=== PATIENT | female | born 1980 | race Two or more races ===

== ENCOUNTER 2020-07-21 13:59 | Outpatient (REF) | payer OTHER, SELFPAY | END 2020-07-21 14:00 | disposition home or self-care (01) | LOC: HO.LNP 13:59 | PROVIDERS: Visit Provider Nurse Practitioner Family | DX: Z20.828 Contact with and (suspected) exposure to other viral communicable diseases (principal) | CPT/HCPCS: 87635 ==

== ENCOUNTER 2020-07-22 15:00 | Outpatient (RCR) | payer OTHER, SELFPAY ==
--- NOTE | 2020-08-25 16:14 | MHC.PT.DC ---
[facility] [place] Office [place] Office [place] Office [address] Giancarlo Leiva [address] [phone] F: [phone] F: [phone] F: [phone] F: [phone] Physical Therapy Discharge Report Diagnosis: Low back pain Date of Surgery: NA Date of Evaluation: 06/17/20 Date of Discharge: 08/25/20 Treatments to Date: 9 Cancellations to Date: 1 No Shows to Date: 0 Discharge Status: Achieved Goals Discharge Summary: 08/25/20- Pt had improved and was independent with all HEPS. Pt had 2 more appointments left and she was going to come to therapy for functional training. However she missed her appointments due to work. Pt has not been able to reschedule her appointments. Pt therefore d/c from therapy. Electronically signed by: Barbara Tang DPT Please sign and return to therapist. Thank you for your referral.
== END 2020-08-25 16:15 | disposition other institution (70) ==
LOC: HO.PT 15:00
PROVIDERS: PCP Internal Medicine; Visit Provider Internal Medicine
DX: M54.9 Dorsalgia, unspecified (principal)
CPT/HCPCS: 97110; 97112; 97530

== ENCOUNTER 2020-08-02 09:34 | Outpatient (REF) | payer OTHER, SELFPAY ==
[2020-08-02 11:44] LABS: Free T4 (Free Thyroxine) 1.27 ng/dL (0.71-1.85); Thyroid Stimulating Hormone 0.36 mIU/mL (0.32-4.0)
== END 2020-08-02 09:35 | disposition home or self-care (01) ==
LOC: HO.LAB 09:34
PROVIDERS: PCP Internal Medicine; Visit Provider Internal Medicine Endocrinology, Diabetes & Metabolism
DX: E03.8 Other specified hypothyroidism (principal)
CPT/HCPCS: 84439; 84443

== ENCOUNTER 2020-08-03 11:56 | Outpatient (REF) | payer OTHER, SELFPAY ==
--- NOTE | 2020-08-03 12:22 | XR_ITS ---
EXAMINATION: XR FACIAL BONES CLINICAL INFORMATION: Localized swelling, mass and lump, head. COMPARISON: Sinus study of 03/27/2020. TECHNIQUE: 4 view facial bones. FINDINGS: No bony abnormality of the facial bones is identified. No acute fracture. No destructive bony lesion. There is some soft tissue swelling seen overlying the frontal bone. No evidence of acute sinusitis. Mastoid air cells well aerated. IMPRESSION: No bony abnormality of the facial bones identified. Soft tissue swelling overlying the frontal bone.
[2020-08-03 13:43] LABS: Basophils Percent Auto 0.5 % (0-2); Eosinophils Absolute Auto 0.2 X10*3/uL (0.0-0.4); Hematocrit 33.4 % (37-47); Hemoglobin 11.3 g/dl (12.0-16.0); Imm Gran Abs Auto 0.01 X10*3/uL (0.00-0.03); Imm Gran Pct Auto 0.2 % (0.0-0.4); Lymphocytes Absolute Auto 1.9 X10*3/uL (1.2-4.9); Lymphocytes Percent Auto 33.6 % (20-40); MANUAL DIFF FLAG NO; Mean Corpuscular HGB Conc 33.8 g/dl (31.0-35.0); Mean Corpuscular Hemoglobin 27.5 pg (27.0-33.0); Mean Corpuscular Volume 81.3 fL (80-98); Mean Platelet Volume 10.7 fL (9.4-12.3); Monocytes Absolute Auto 0.5 X10*3/uL (0.1-1.2); Monocytes Percent Auto 8.3 % (2-11); Neutrophils Absolute Auto 3.1 X10*3/uL (2.0-8.3); Neutrophils Percent Auto 54.4 % (45-73); Platelet Count 269 X10*3/uL (160-400); Red Blood Count 4.11 X10*6/uL (4.20-5.50); Red Cell Distribution Width 14.9 % (11.0-16.0); White Blood Count 5.7 X10*3/uL (4.8-10.8)
[2020-08-03 14:43] LABS: Anion Gap 12 (12-20); Blood Urea Nitrogen 7 mg/dL (9-16); Calcium 8.4 mg/dL (8.4-10.2); Carbon Dioxide 23 mmol/L (22-29); Chloride 107 mmol/L (96-108); Estimated Glomerular Filt Rate > 60; Glucose Fasting 84 mg/dL (60-99); Potassium 4.2 mmol/l (3.3-5.1); Sodium 138 mmol/L (135-145)
[2020-08-03 15:19] LABS: TSH reflex Free T4 0.37 mIU/mL (0.32-4.0)
== END 2020-08-03 11:57 | disposition home or self-care (01) ==
LOC: HO.LABR 11:56
PROVIDERS: Visit Provider Nurse Practitioner Family
DX: R22.0 Localized swelling, mass and lump, head (principal); E03.9 Hypothyroidism, unspecified; E04.2 Nontoxic multinodular goiter
CPT/HCPCS: 36415; 70140; 80048; 84443; 85025

== ENCOUNTER → 2020-08-06 13:10 | Outpatient (BNVA) | payer OTHER, SELFPAY | PROVIDERS: PCP Internal Medicine; Referring Provider Internal Medicine; Visit Provider Internal Medicine Endocrinology, Diabetes & Metabolism | DX: E03.9 Hypothyroidism, unspecified (principal); E06.3 Autoimmune thyroiditis; E04.2 Nontoxic multinodular goiter; Z79.899 Other long term (current) drug therapy; Z87.891 Personal history of nicotine dependence | CPT/HCPCS: 99213 ==

== ENCOUNTER 2020-10-02 10:36 | Outpatient (REF) | payer OTHER, SELFPAY ==
--- NOTE | 2020-10-02 10:41 | MM_ITS ---
EXAMINATION: MM SCREENING DIGITAL BREAST TOMOSYNTHESIS, BILATERAL CLINICAL INFORMATION: Screening. Asymptomatic. The lifetime risk of breast cancer based on the Tyrer-Cuzick Model is 13%. COMPARISON: Mammography: 09/20/2019, 09/14/2018 (baseline). TECHNIQUE: Digital breast tomosynthesis is performed in both the craniocaudal and mediolateral oblique views along with computer-aided detection (CAD). Synthesized 2D images are generated from the tomosynthesis. FINDINGS: There are scattered areas of fibroglandular density (ACR BI-RADS breast composition Category b). The right breast is unremarkable. There is no interval mass or architectural abnormality or developing density. Neither breast shows abnormal calcifications. The bilateral axilla and skin contours are unremarkable. Left CC view has small asymmetric density posterior central aspect, 8 cm from nipple, suspect summation artifact. Patient will be recalled to further characterize. MM/MM tomosynthesis screening BI IMPRESSION: 1. Left: Small asymmetric density CC view posterior central aspect, possibly summation artifact. 2. Right: No mammographic evidence of malignancy. ASSESSMENT: BI-RADS 0: Incomplete - Need Additional Imaging Evaluation RECOMMENDATION: 1. Additional views of the left breast (3-D rolled CC x2, 3-D ML). 2. Targeted ultrasound if warranted after review of the additional views. 3. Radiology department staff will contact the patient for additional imaging. This patient's information was entered into a reminder system with a target due date for their next mammogram.
== END 2020-10-02 10:37 | disposition home or self-care (01) ==
LOC: HO.MAMMO 10:36
PROVIDERS: PCP Internal Medicine; Visit Provider Internal Medicine
DX: Z12.31 Encounter for screening mammogram for malignant neoplasm of breast (principal)
CPT/HCPCS: 77063; 77067

== ENCOUNTER 2020-11-01 13:01 | Outpatient (REF) | payer OTHER, SELFPAY | END 2020-11-01 13:02 | disposition home or self-care (01) | LOC: HO.MDS 13:01 | PROVIDERS: PCP Internal Medicine; Visit Provider Internal Medicine Medical Oncology | DX: D50.9 Iron deficiency anemia, unspecified (principal) ==

== ENCOUNTER 2020-11-18 08:50 | Outpatient (REF) | payer OTHER, SELFPAY ==
--- NOTE | 2020-11-18 08:53 | MM_ITS ---
EXAMINATION: MM DIAGNOSTIC DIGITAL BREAST TOMOSYNTHESIS, LEFT CLINICAL INFORMATION: Density deep in the superior lateral aspect of the left breast seen only on craniocaudal view. COMPARISON: Mammography: 10/02/2020 and studies dating back to 09/14/2018. TECHNIQUE: Digital breast tomosynthesis is performed. 2D images are generated from the tomosynthesis. The following views are obtained: Medial and lateral rolled craniocaudal views and 90-degree mediolateral view. FINDINGS: There are scattered areas of fibroglandular density (ACR BI-RADS breast composition Category b). No definite persistent density is present. Recommend 6-month follow-up left craniocaudal view only. There are some adjacent regions of dense parenchyma present and 6 month follow-up mammography is recommended to ensure stability. Results are provided to the patient at time of visit by the technologist. MM/MM tomosynthesis added views L IMPRESSION: No definite persistent left breast mass. Recommend 6-month left craniocaudal view for follow-up. ASSESSMENT: BI-RADS 3: Probably Benign. RECOMMENDATION: Diagnostic mammography in 6 months. This patient's information was entered into a reminder system with a target due date for their next mammogram.
== END 2020-11-18 08:51 | disposition home or self-care (01) ==
LOC: HO.MAMMO 08:50
PROVIDERS: PCP Internal Medicine; Visit Provider Internal Medicine
DX: N64.89 Other specified disorders of breast (principal)
CPT/HCPCS: 77061; 77065

== ENCOUNTER 2020-12-09 02:49 | Emergency (ER) | payer OTHER, SELFPAY ==
--- NOTE | ~2020-12-09 | XR_ITS ---
EXAMINATION: XR CHEST CLINICAL INFORMATION: Chest pain COMPARISON: 02/06/2016 TECHNIQUE: Frontal view of the chest was obtained. FINDINGS: Cardiac leads overlie the chest. The lungs are well expanded. Bronchial wall thickening noted. There is no focal consolidation, edema, or effusion. No pneumothorax. The cardiomediastinal silhouette is within normal limits. No acute osseous abnormality. XR/XR chest 1V IMPRESSION: No consolidation. Bronchial wall thickening can be seen with a small airways process such as asthma or atypical/viral infection.
--- NOTE | ~2020-12-09 | CT_ITS ---
EXAMINATION: CT ANGIOGRAM OF THE CHEST WITH AND WITHOUT CONTRAST (CT PULMONARY ANGIOGRAM FOR PE) CLINICAL INFORMATION: Reason for Exam Shortness of breath, elevated D-dimer, chest pain COMPARISON: Radiograph 12/09/2020. TECHNIQUE: Prior to contrast administration, noncontrast localization images were obtained. Subsequently, multidetector volumetric imaging was performed from the thoracic inlet to below the diaphragms following the administration of 65 mL Omnipaque 350 intravenous contrast. No contrast reaction reported Sagittal, coronal, and MIP oblique sagittal reformatted images were obtained on the CT workstation, uploaded to PACS, and reviewed. This CT examination was performed using dose optimization techniques as appropriate, variously including the following: *Automated exposure control *Adjustment of mA and/or kV according to patient size (this includes techniques or standardized protocols for targeted exams where dose is matched to indication/reason for exam; i.e. extremities or head) *Use of iterative reconstruction technique Total exam dose-length product 269 mGy-cm FINDINGS: QUALITY OF STUDY/CONTRAST BOLUS: Satisfactory. PULMONARY ARTERIES: No central or segmental pulmonary emboli. THORACIC AORTA: No aneurysm or dissection. LUNG: No focal consolidation, nodules or masses. The central airways are patent. Minimal centrilobular/paraseptal emphysema. PLEURA: No pleural effusion or pneumothorax. MEDIASTINUM: Normal heart size. No pericardial effusion. No hilar or mediastinal lymphadenopathy. No evidence of septal bowing or right heart strain. CHEST WALL/AXILLA: No axillary or internal mammary lymphadenopathy. OSSEOUS STRUCTURES: No acute or suspicious osseous abnormality. UPPER ABDOMEN: Unremarkable. No reflux of contrast into the hepatic veins to suggest elevated right heart pressures. CT/CT angio chest PE protocol IMPRESSION: No pulmonary embolism or other acute pulmonary abnormality. VTE: negative
[2020-12-09 03:07] VITALS: BP 138/88; PULSE 62; PULSE 68; RESP 16; TEMP 36.9; O2SAT 100; O2SAT 98; BMI 28.3
[2020-12-09 03:14] VITALS: BP 113/73; PULSE 60; RESP 14; TEMP 36.9; O2SAT 100
--- NOTE | 2020-12-09 03:23 | ECG_ITS ---
Test Reason : CP Blood Pressure : / mmHG Vent. Rate : 056 BPM Atrial Rate : 056 BPM P-R Int : 144 ms QRS Dur : 090 ms QT Int : 446 ms P-R-T Axes : 019 061 052 degrees QTc Int : 430 ms Sinus bradycardia Otherwise normal ECG When compared with ECG of 03-DEC-2012 08:13, No significant change was found Referred By: Elina Gregg Electronically Signed By:ALISSON RAMOS MD
[2020-12-09 04:06] VITALS: BP 100/54; PULSE 64; RESP 16; TEMP 37; O2SAT 99
[2020-12-09 04:26] LABS: Basophils Percent Auto 0.6 % (0-2); Eosinophils Percent Auto 0.4 % (0-4); Hematocrit 32.7 % (37-47); Hemoglobin 11.1 g/dl (12.0-16.0); Imm Gran Abs Auto 0.01 X10*3/uL (0.00-0.03); Imm Gran Pct Auto 0.2 % (0.0-0.4); Lymphocytes Absolute Auto 0.6 X10*3/uL (1.2-4.9); Lymphocytes Percent Auto 11.7 % (20-40); MANUAL DIFF FLAG SCAN; Mean Corpuscular HGB Conc 33.9 g/dl (31.0-35.0); Mean Corpuscular Hemoglobin 28.1 pg (27.0-33.0); Mean Corpuscular Volume 82.8 fL (80-98); Mean Platelet Volume 10.2 fL (9.4-12.3); Monocytes Absolute Auto 0.3 X10*3/uL (0.1-1.2); Monocytes Percent Auto 5.2 % (2-11); Neutrophils Absolute Auto 3.9 X10*3/uL (2.0-8.3); Neutrophils Percent Auto 81.9 % (45-73); Platelet Count 216 X10*3/uL (160-400); Red Blood Count 3.95 X10*6/uL (4.20-5.50); Red Cell Distribution Width 15.1 % (11.0-16.0); SCAN SMEAR FLAG 1; White Blood Count 4.8 X10*3/uL (4.8-10.8)
[2020-12-09 04:28] LABS: SLIDE REVIEW VERIFIED
[2020-12-09 04:31] LABS: Glucose Urine UA NEG (NEG); Leukocyte Esterase Urine NEG (NEG); Nitrite Urine NEG (NEG); PH 6.5 (5.0-8.0); Urine Blood NEG (NEG); Urine Ketones NEG (NEG); Urine Protein NEG (NEG-TRACE)
[2020-12-09 04:33] LABS: Appearance Urine CLEAR; Color Urine YELLOW
[2020-12-09 04:34] LABS: UPreg QC Valid YES; Urine Pregnancy NEGATIVE (NEGATIVE)
[2020-12-09 04:36] LABS: D Dimer 565 NG/ML
--- NOTE | 2020-12-09 04:45 | ED.CHESTPAIN ---
HPI - Chest Pain General Chief Complaint: Chest Pain Stated Complaint: CHEST PAIN/DIFF BREATHING Time Seen by Provider: 12/09/20 03:07 Source: patient Mode of arrival: EMS History of Present Illness HPI narrative: This is 40-year-old female who states that she developed shortness of breath and sharp stabbing chest pain at the substernal/epigastric area without radiation elsewhere, fevers, chills and states that it lasted approximately 5 minutes and afterwards patient developed nausea and vomited. She states that yesterday after having lunch of chicken with ranch dressing and lettuce she then developed a couple of episodes of diarrhea but was able to eat dinner which was fruit and then subsequently woke up in the middle night with the above pain and shortness of breath. Patient states that she has a positive COVID-19 exposure and was tested this past Sunday and informed that she was negative. Related Data Home Medications Medication Instructions Recorded Confirmed ibuprofen 800 mg tablet 800 mg PO Q8H PRN 07/21/20 08/23/20 metronidazole 0.75 % vaginal gel 1 appful VAGINAL BEDTIME 07/21/20 08/23/20 Lactobacillus acidophilus 10 PO DAILY cap 08/02/20 08/23/20 billion cell capsule dexlansoprazole 60 mg 60 mg PO DAILY 08/02/20 08/23/20 capsule,biphase delayed release sennosides 8.6 mg tablet [id number]? mg PO DAILY 08/06/20 08/23/20 cholecalciferol (vitamin D3) 25 25 mcg PO DAILY 08/23/20 08/23/20 mcg (1,000 unit) capsule cyanocobalamin (vitamin B-12) 1,000 mcg PO DAILY 08/23/20 08/23/20 1,000 mcg capsule Previous Rx's Medication Instructions Recorded levothyroxine 100 mcg tablet 100 mcg PO DAILY 90 Days #90 tab 08/06/20 citalopram 10 mg tablet 10 mg PO DAILY #90 tab 08/23/20 Allergies Allergy/AdvReac Type Severity Reaction Status Date / Time pomegranate Allergy Severe ANAPHYLAXIS Verified 10/26/20 08:55 Penicillins Allergy Mild RASH Verified 10/26/20 08:55 opiates Allergy Unknown panic Verified 10/26/20 08:55 attacks penicillin V Allergy Unknown severe Verified 10/26/20 08:55 yeast infections Opioids - Morphine Analogues AdvReac Severe DYSPHORIA Verified 10/26/20 08:55 [OPIOIDS-MORPHINE & RELATED] AND PANIC ATTACKS Review of Systems Review of Systems: Pertinent positives and negatives as stated in HPI 10 point review of systems is otherwise negative. [facility] Past Medical History Source: nursing notes reviewed Medical History Anemia Anxiety and depression Endometrial thickening on ultrasound GERD (gastroesophageal reflux disease) Shreya's disease Herpes genitalis Hypothyroidism Migraine Non-toxic multinodular goiter Urethral diverticulum Surgical History History of esophagogastroduodenoscopy (EGD) Hx of bilateral salpingectomy Hx of cholecystectomy Hx of hiatal hernia Family History Family History Father No problems noted. Mother Diabetes mellitus HTN (hypertension) Maternal Uncle Pancreatic cancer Maternal Grandfather Diabetes mellitus Social History Social History Alcohol intake: never Smoking Status: Never smoker Use of substances other than those prescribed or required for medical reasons: No Advance Directives: No Physical Exam Vital Signs: Vital Signs: Last Vital Signs Temp 98.5 F 12/09/20 05:18 Pulse 68 12/09/20 05:18 Resp 13 12/09/20 05:18 BP 102/60 12/09/20 05:18 Pulse Ox 100 12/09/20 05:18 Body Mass Index 28.3 VITAL SIGNS: Reviewed. GENERAL: Well developed, well nourished, in no acute distress. HEAD: Normocephalic/atraumatic, EYES: PERRLA, EOMI EARS: Ext canals without abnormality NOSE: Nares patent bilateral OROPHARYNX: no oral lesions noted, posterior pharynx clear NECK: Supple, no adenopathy LUNGS: Normal breath sounds. SpO2<100> CARDIOVASCULAR: Regular rate and rhythm without noted murmurs ABDOMEN: Soft, non-tender, non-distended with bowel sounds. EXTREMITIES: No cyanosis, clubbing or edema, calf pain/swelling. SKIN: Inspection of the skin reveals no rashes NEUROLOGIC: Alert and oriented x 4. Strength and sensation to light touch were grossly intact x 4. Course Course Course Narrative: This is a 40-year-old female with history and clinical presentation suggestive of possible acute on chronic acid reflux, but will rule out cardiopulmonary etiologies to include PE. When review of all investigations there are findings consistent with COVID pattern with transaminemia, chest x-ray consistent with atypical viral pattern and serology showing positive COVID-19. As D-dimer was elevated a CT angio with PE protocol was conducted but negative for evidence of PE. All results and findings were discussed with the patient she was informed she would need to self quarantine and inform her work of her status. Patient has no evidence of hypoxia or tachypnea and was discharged home in stable condition. MDM - Chest Pain Lab Data Result diagrams: 12/09/20 04:15 12/09/20 04:16 Labs: Lab Results 12/09/20 12/09/20 12/09/20 Range/Units 04:15 04:15 04:15 WBC 4.8 (4.8-10.8) X10*3/uL RBC 3.95 L (4.20-5.50) X10*6/uL Hgb 11.1 L (12.0-16.0) g/dl Hct 32.7 L (37-47) % MCV 82.8 (80-98) fL MCH 28.1 (27.0-33.0) pg MCHC 33.9 (31.0-35.0) g/dl RDW 15.1 (11.0-16.0) % Plt Count 216 (160-400) X10*3/uL MPV 10.2 (9.4-12.3) fL Immature Gran % (Auto) 0.2 (0.0-0.4) % Neut % (Auto) 81.9 H (45-73) % Lymph % (Auto) 11.7 L (20-40) % [place] % (Auto) 5.2 (2-11) % Eos % (Auto) 0.4 (0-4) % Baso % (Auto) 0.6 (0-2) % Lymph # (Auto) 0.6 L (1.2-4.9) X10*3/uL [place] # (Auto) 0.3 (0.1-1.2) X10*3/uL Eos # (Auto) 0.0 (0.0-0.4) X10*3/uL Baso # (Auto) 0.0 (0.0-0.2) X10*3/uL Abs Immat Gran (auto) 0.01 (0.00-0.03) X10*3/uL Absolute Neuts (auto) 3.9 (2.0-8.3) X10*3/uL Absolute Nucleated RBC 0.000 (0.0-0.012) X10*3/uL Nucleated RBC % (auto) 0.0 (0.0-0.2) /100WBC Smear Tech's Comments VERIFIED D-Dimer 565 NG/ML Sodium (135-145) mmol/L Potassium (3.3-5.1) mmol/L Chloride (96-108) mmol/L Carbon Dioxide (22-29) mmol/L Anion Gap (12-20) BUN (9-16) mg/dL Creatinine (0.5-1.4) mg/dL Estim Creat Clear Calc Estimated GFR Random Glucose (60-115) mg/dL Calcium (8.4-10.2) mg/dL Total Bilirubin (0.0-1.0) mg/dL AST (5-31) U/L ALT (0-31) U/L Alkaline Phosphatase (39-117) U/L Troponin I High Sens < 3.5 (<3.5-17.0) ng/L Total Protein (6.5-8.0) g/dL Albumin (3.5-5.0) g/dL Lipase (8-78) U/L Urine Color Urine Appearance Urine pH (5.0-8.0) Ur Specific [place] (1.005-1.025) Urine Protein (NEG-TRACE) MG/DL Urine Glucose (UA) (NEG) MG/DL Urine Ketones (NEG) MG/DL Urine Blood (NEG) Urine Nitrite (NEG) Ur Leukocyte Esterase (NEG) Urine Test (NEGATIVE) 12/09/20 12/09/20 12/09/20 Range/Units 04:15 04:15 04:16 WBC (4.8-10.8) X10*3/uL RBC (4.20-5.50) X10*6/uL Hgb (12.0-16.0) g/dl Hct (37-47) % MCV (80-98) fL MCH (27.0-33.0) pg MCHC (31.0-35.0) g/dl RDW (11.0-16.0) % Plt Count (160-400) X10*3/uL MPV (9.4-12.3) fL Immature Gran % (Auto) (0.0-0.4) % Neut % (Auto) (45-73) % Lymph % (Auto) (20-40) % [place] % (Auto) (2-11) % Eos % (Auto) (0-4) % Baso % (Auto) (0-2) % Lymph # (Auto) (1.2-4.9) X10*3/uL [place] # (Auto) (0.1-1.2) X10*3/uL Eos # (Auto) (0.0-0.4) X10*3/uL Baso # (Auto) (0.0-0.2) X10*3/uL Abs Immat Gran (auto) (0.00-0.03) X10*3/uL Absolute Neuts (auto) (2.0-8.3) X10*3/uL Absolute Nucleated RBC (0.0-0.012) X10*3/uL Nucleated RBC % (auto) (0.0-0.2) /100WBC Smear Tech's Comments D-Dimer NG/ML Sodium 141 (135-145) mmol/L Potassium 3.6 (3.3-5.1) mmol/L Chloride 107 (96-108) mmol/L Carbon Dioxide 24 (22-29) mmol/L Anion Gap 14 (12-20) BUN 11 (9-16) mg/dL Creatinine 0.73 (0.5-1.4) mg/dL Estim Creat Clear Calc 99.5 Estimated GFR > 60 Random Glucose 95 (60-115) mg/dL Calcium 8.5 (8.4-10.2) mg/dL Total Bilirubin 0.7 (0.0-1.0) mg/dL AST 214 H (5-31) U/L ALT 88 H (0-31) U/L Alkaline Phosphatase 83 D (39-117) U/L Troponin I High Sens (<3.5-17.0) ng/L Total Protein 6.2 L (6.5-8.0) g/dL Albumin 3.9 (3.5-5.0) g/dL Lipase (8-78) U/L Urine Color YELLOW Urine Appearance CLEAR Urine pH 6.5 (5.0-8.0) Ur Specific [place] 1.020 (1.005-1.025) Urine Protein NEG (NEG-TRACE) MG/DL Urine Glucose (UA) NEG (NEG) MG/DL Urine Ketones NEG (NEG) MG/DL Urine Blood NEG (NEG) Urine Nitrite NEG (NEG) Ur Leukocyte Esterase NEG (NEG) Urine Test NEGATIVE (NEGATIVE) 12/09/20 Range/Units 04:16 WBC (4.8-10.8) X10*3/uL RBC (4.20-5.50) X10*6/uL Hgb (12.0-16.0) g/dl Hct (37-47) % MCV (80-98) fL MCH (27.0-33.0) pg MCHC (31.0-35.0) g/dl RDW (11.0-16.0) % Plt Count (160-400) X10*3/uL MPV (9.4-12.3) fL Immature Gran % (Auto) (0.0-0.4) % Neut % (Auto) (45-73) % Lymph % (Auto) (20-40) % [place] % (Auto) (2-11) % Eos % (Auto) (0-4) % Baso % (Auto) (0-2) % Lymph # (Auto) (1.2-4.9) X10*3/uL [place] # (Auto) (0.1-1.2) X10*3/uL Eos # (Auto) (0.0-0.4) X10*3/uL Baso # (Auto) (0.0-0.2) X10*3/uL Abs Immat Gran (auto) (0.00-0.03) X10*3/uL Absolute Neuts (auto) (2.0-8.3) X10*3/uL Absolute Nucleated RBC (0.0-0.012) X10*3/uL Nucleated RBC % (auto) (0.0-0.2) /100WBC Smear Tech's Comments D-Dimer NG/ML Sodium (135-145) mmol/L Potassium (3.3-5.1) mmol/L Chloride (96-108) mmol/L Carbon Dioxide (22-29) mmol/L Anion Gap (12-20) BUN (9-16) mg/dL Creatinine (0.5-1.4) mg/dL Estim Creat Clear Calc Estimated GFR Random Glucose (60-115) mg/dL Calcium (8.4-10.2) mg/dL Total Bilirubin (0.0-1.0) mg/dL AST (5-31) U/L ALT (0-31) U/L Alkaline Phosphatase (39-117) U/L Troponin I High Sens (<3.5-17.0) ng/L Total Protein (6.5-8.0) g/dL Albumin (3.5-5.0) g/dL Lipase 83 H (8-78) U/L Urine Color Urine Appearance Urine pH (5.0-8.0) Ur Specific [place] (1.005-1.025) Urine Protein (NEG-TRACE) MG/DL Urine Glucose (UA) (NEG) MG/DL Urine Ketones (NEG) MG/DL Urine Blood (NEG) Urine Nitrite (NEG) Ur Leukocyte Esterase (NEG) Urine Test (NEGATIVE) ECG Data ECG #1: Attestation: I personally reviewed and interpreted this ECG as follows: Prior ECG tracings: not available for review Interpretation: Sinus bradycardia, HR-56, no evidence of acute ischemia, [place]/QRS/QTC are within normal limits. Discharge Plan Discharge Clinical Impression: Cough with exposure to COVID-19 virus, Lab test positive for detection of COVID-19 virus Patient Disposition: Home, Self-Care Instructions: COVID-19 (Coronavirus Disease 2019) (ED) Additional Instructions: 1. Resume all home medications as prescribed. 2. Please follow all [facility] guidelines for self quarantine during COVID-19 positivity. 3. You will need to inform your employer that you have been diagnosed with COVID-19. 4. Please follow-up with your primary care provider as well. 5. Please utilize [id number] Tylenol and/or ibuprofen as directed on aside packaging for any body aches, temperatures greater than 100.4. Increase fluid hydration especially with water. Do not hesitate to return to the emergency department should you develop any acute worsening of your symptoms. Prescriptions: No Action cyanocobalamin (vitamin B-12) 1,000 mcg capsule 1,000 mcg PO DAILY RF: 0 cholecalciferol (vitamin D3) 25 mcg (1,000 unit) capsule 25 mcg PO DAILY RF: 0 citalopram 10 mg tablet 10 mg PO DAILY Qty: 90 RF: 1 Dexilant 60 mg capsule,biphase delayed releas 60 mg PO DAILY RF: 0 Probiotic 10 billion cell capsule PO DAILY RF: 0 metronidazole 0.75 % gel 1 appful vaginal BEDTIME RF: 0 ibuprofen 800 mg tablet 800 mg PO Q8H PRN (Reason: pain) RF: 0 sennosides 8.6 mg tablet [id number]? mg PO DAILY RF: 0 levothyroxine 100 mcg tablet 100 mcg PO DAILY 90 Days Qty: 90 RF: 2 Referrals: Physician,Unknown [Primary Care Provider] - 2 days
[2020-12-09 04:53] LABS: Troponin-I High Sensitivity < 3.5 ng/L (<3.5-17.0)
[2020-12-09 04:57] LABS: Alanine Aminotransferase 88 U/L (0-31); Albumin Level 3.9 g/dL (3.5-5.0); Alkaline Phosphatase 83 U/L (39-117); Anion Gap 14 (12-20); Aspartate Amino Transferase 214 U/L (5-31); Bilirubin Total 0.7 mg/dL (0.0-1.0); Blood Urea Nitrogen 11 mg/dL (9-16); Calcium 8.5 mg/dL (8.4-10.2); Carbon Dioxide 24 mmol/L (22-29); Chloride 107 mmol/L (96-108); Creatinine Clr Calc Pharmacy 99.5; Estimated Glomerular Filt Rate > 60; Glucose Random 95 mg/dL (60-115); Potassium 3.6 mmol/L (3.3-5.1); Sodium 141 mmol/L (135-145); Total Protein 6.2 g/dL (6.5-8.0)
[2020-12-09 05:13] LABS: Lipase 83 U/L (8-78)
[2020-12-09 05:18] VITALS: BP 102/60; PULSE 68; RESP 13; TEMP 36.9; O2SAT 100
[2020-12-09] MEDS: iohexoL 350 MG/ML 100 ML INFUS..BTL 65 ML IV (05:36)
[2020-12-09] MEDS: 0.9 % Sodium Chloride 1,000 ML 999 ML IV (05:53)
[2020-12-09] MEDS: Acetaminophen 325 MG TABLET 975 MG PO (05:53)
[2020-12-09 06:01] LABS: Influenza A PCR NEGATIVE (Negative); Influenza B PCR NEGATIVE (Negative); Resp Syncy Virus RNA Qual PCR NEGATIVE (Negative)
[2020-12-09 06:11] LABS: SARS COV2 PCR INHOUSE POSITIVE (Negative)
== END 2020-12-09 06:54 | disposition home or self-care (01) ==
PROVIDERS: Emergency Provider Student in an Organized Health Care Education/Training Program
DX: U07.1 COVID-19 (principal); R07.9 Chest pain, unspecified; F41.9 Anxiety disorder, unspecified; K21.9 Gastro-esophageal reflux disease without esophagitis; Z79.899 Other long term (current) drug therapy
CPT/HCPCS: 0241U; 36415; 71045; 71275; 80053; 81003; 81025; 83690; 84484; 85025; 85379; 93005; 96360; 99284; 99285; Q9967

== ENCOUNTER 2020-12-30 16:01 | Outpatient (REF) | payer OTHER, SELFPAY ==
[2020-12-30 16:22] LABS: MANUAL DIFF FLAG NO
[2020-12-30 16:28] LABS: Basophils Percent Auto 0.4 % (0-2); Eosinophils Absolute Auto 0.2 X10*3/uL (0.0-0.4); Eosinophils Percent Auto 2.2 % (0-4); Hematocrit 31.5 % (37-47); Hemoglobin 10.7 g/dl (12.0-16.0); Imm Gran Abs Auto 0.01 X10*3/uL (0.00-0.03); Imm Gran Pct Auto 0.1 % (0.0-0.4); Immature Retic Fraction 15.1 % (3.0-15.9); Lymphocytes Percent Auto 29.6 % (20-40); Mean Corpuscular Hemoglobin 28.4 pg (27.0-33.0); Mean Corpuscular Volume 83.6 fL (80-98); Mean Platelet Volume 10.1 fL (9.4-12.3); Monocytes Absolute Auto 0.6 X10*3/uL (0.1-1.2); Monocytes Percent Auto 8.6 % (2-11); Neutrophils Absolute Auto 4.1 X10*3/uL (2.0-8.3); Neutrophils Percent Auto 59.1 % (45-73); Platelet Count 307 X10*3/uL (160-400); Red Blood Count 3.77 X10*6/uL (4.20-5.50); Red Cell Distribution Width 15.9 % (11.0-16.0); Retic HGB Equivalent 31.8 pg (30.0-35.0); Reticulocyte Percent 1.7 % (0.5-1.8); Reticulocytes Absolute 0.064 X10*6/uL (0.026-0.095); White Blood Count 6.9 X10*3/uL (4.8-10.8)
[2020-12-30 17:14] LABS: Ferritin 8 ng/mL (10-250); Thyroid Stimulating Hormone 0.26 uIU/mL (0.32-4.0); Vitamin D 25-OH Total 41.9 ng/mL (>30)
[2020-12-30 17:26] LABS: Alanine Aminotransferase 10 U/L (0-31); Alkaline Phosphatase 64 U/L (39-117); Blood Urea Nitrogen 10 mg/dL (9-16); Glucose Random 85 mg/dL (60-115); Iron 28 mcg/dL (30-160); Percent Iron Saturation 7 % (15-50); Total Iron Binding Capacity 425 mcg/dL (228-428); Unsaturated Iron Binding 397 ug/dL
[2020-12-30 17:30] LABS: Anion Gap 12 (12-20); Aspartate Amino Transferase 16 U/L (5-31); Bilirubin Total 0.6 mg/dL (0.0-1.0); Calcium 8.6 mg/dL (8.4-10.2); Carbon Dioxide 23 mmol/L (22-29); Chloride 113 mmol/L (96-108); Cholesterol 157 mg/dL; Estimated Glomerular Filt Rate > 60; HDL Cholesterol 60 mg/dL; LDL Cholesterol Calculated 78 mg/dl; Sodium 144 mmol/L (135-145); Total Protein 6.2 g/dL (6.5-8.0); Triglycerides 96 mg/dL
[2020-12-30 18:27] LABS: Folate 15.6 ng/mL (> or = 4.0); Vitamin B12 741 pg/mL (200-900)
== END 2020-12-30 16:02 | disposition home or self-care (01) ==
LOC: HO.LAB 16:01
PROVIDERS: PCP Internal Medicine; Visit Provider Internal Medicine
DX: E03.9 Hypothyroidism, unspecified (principal); E78.00 Pure hypercholesterolemia, unspecified; D50.9 Iron deficiency anemia, unspecified
CPT/HCPCS: 36415; 80053; 80061; 82306; 82607; 82728; 82746; 83540; 84439; 84443; 85025; 85045

== ENCOUNTER 2021-01-03 15:40 | Outpatient (REF) | payer OTHER, SELFPAY ==
[2021-01-03 15:54] LABS: MANUAL DIFF FLAG NO
[2021-01-03 15:56] LABS: Basophils Percent Auto 0.4 % (0-2); Eosinophils Absolute Auto 0.1 X10*3/uL (0.0-0.4); Eosinophils Percent Auto 1.9 % (0-4); Hematocrit 32.2 % (37-47); Hemoglobin 11.3 g/dl (12.0-16.0); Imm Gran Abs Auto 0.01 X10*3/uL (0.00-0.03); Imm Gran Pct Auto 0.1 % (0.0-0.4); Lymphocytes Percent Auto 29.6 % (20-40); Mean Corpuscular HGB Conc 35.1 g/dl (31.0-35.0); Mean Corpuscular Hemoglobin 29.2 pg (27.0-33.0); Mean Corpuscular Volume 83.2 fL (80-98); Mean Platelet Volume 9.9 fL (9.4-12.3); Monocytes Absolute Auto 0.5 X10*3/uL (0.1-1.2); Monocytes Percent Auto 6.9 % (2-11); Neutrophils Absolute Auto 4.2 X10*3/uL (2.0-8.3); Neutrophils Percent Auto 61.1 % (45-73); Platelet Count 313 X10*3/uL (160-400); Red Blood Count 3.87 X10*6/uL (4.20-5.50); Red Cell Distribution Width 15.6 % (11.0-16.0); White Blood Count 6.9 X10*3/uL (4.8-10.8)
[2021-01-03 16:33] LABS: Ferritin 6 ng/mL (10-250)
== END 2021-01-03 15:41 | disposition home or self-care (01) ==
LOC: HO.MDS 15:40
PROVIDERS: PCP Internal Medicine; Visit Provider Internal Medicine Medical Oncology
DX: D50.9 Iron deficiency anemia, unspecified (principal)
CPT/HCPCS: 36415; 82728; 85025; 96365; J1439

== ENCOUNTER 2021-01-08 07:58 | Outpatient (REF) | payer OTHER, SELFPAY ==
--- NOTE | ~2021-01-08 | XR_ITS ---
EXAMINATION: XR LUMBOSACRAL SPINE CLINICAL INFORMATION: Low back pain COMPARISON: Previous x-ray May 2020 TECHNIQUE: 3 views of the lumbar spine FINDINGS: There is curvature of the lumbar sacral spine to the left. Bone alignment is otherwise normal. No fracture or dislocation is seen. Disc spaces are normal. XR/XR lumbar spine 2-3V IMPRESSION: Curvature of the lower lumbar sacral spine to the left.
== END 2021-01-08 07:59 | disposition home or self-care (01) ==
LOC: HO.XRAY 07:58
PROVIDERS: PCP Internal Medicine; Visit Provider Internal Medicine
DX: M54.5 Low back pain (principal)
CPT/HCPCS: 72100

== ENCOUNTER 2021-01-10 15:51 | Outpatient (REF) | payer OTHER, SELFPAY | END 2021-01-10 15:52 | disposition home or self-care (01) | LOC: HO.MDS 15:51 | PROVIDERS: PCP Internal Medicine; Visit Provider Internal Medicine Medical Oncology | DX: D50.9 Iron deficiency anemia, unspecified (principal) | CPT/HCPCS: 96365; J1439 ==

== ENCOUNTER 2021-03-19 07:28 | Outpatient (REF) | payer OTHER, SELFPAY ==
[2021-03-19 08:25] LABS: MANUAL DIFF FLAG NO
[2021-03-19 08:50] LABS: Iron 96 mcg/dL (30-160); Percent Iron Saturation 37 % (15-50); Total Iron Binding Capacity 260 mcg/dL (228-428); Unsaturated Iron Binding 164 ug/dL
[2021-03-19 08:52] LABS: Basophils Percent Auto 0.6 % (0-2); Eosinophils Absolute Auto 0.2 X10*3/uL (0.0-0.4); Eosinophils Percent Auto 4.1 % (0-4); Hemoglobin 12.7 g/dl (12.0-16.0); Imm Gran Abs Auto 0.01 X10*3/uL (0.00-0.03); Imm Gran Pct Auto 0.2 % (0.0-0.4); Immature Retic Fraction 13.2 % (3.0-15.9); Lymphocytes Absolute Auto 1.6 X10*3/uL (1.2-4.9); Lymphocytes Percent Auto 31.7 % (20-40); Mean Corpuscular HGB Conc 35.3 g/dl (31.0-35.0); Mean Corpuscular Hemoglobin 32.2 pg (27.0-33.0); Mean Corpuscular Volume 91.4 fL (80-98); Mean Platelet Volume 10.5 fL (9.4-12.3); Monocytes Absolute Auto 0.5 X10*3/uL (0.1-1.2); Monocytes Percent Auto 10.4 % (2-11); Neutrophils Absolute Auto 2.7 X10*3/uL (2.0-8.3); Platelet Count 194 X10*3/uL (160-400); Red Blood Count 3.94 X10*6/uL (4.20-5.50); Red Cell Distribution Width 15.9 % (11.0-16.0); Retic HGB Equivalent 36.5 pg (30.0-35.0); Reticulocyte Percent 2.1 % (0.5-1.8); Reticulocytes Absolute 0.082 X10*6/uL (0.026-0.095); White Blood Count 5.1 X10*3/uL (4.8-10.8)
[2021-03-19 09:00] LABS: Ferritin 254 ng/mL (10-250); Free T4 (Free Thyroxine) 0.95 ng/dL (0.71-1.85); Thyroid Stimulating Hormone 1.48 uIU/mL (0.32-4.0)
[2021-03-21 08:22] LABS: Folate 15.6 ng/mL (> or = 4.0); Vitamin B12 680 pg/mL (200-900)
== END 2021-03-19 07:29 | disposition home or self-care (01) ==
LOC: HO.LAB 07:28
PROVIDERS: PCP Internal Medicine; Visit Provider Internal Medicine
DX: E03.9 Hypothyroidism, unspecified (principal)
CPT/HCPCS: 36415; 82607; 82728; 82746; 83540; 84439; 84443; 85025; 85045

== ENCOUNTER → 2021-03-29 15:54 | Outpatient (BNVA) | payer OTHER, SELFPAY | PROVIDERS: PCP Internal Medicine; Referring Provider Internal Medicine; Visit Provider Nurse Practitioner Family | DX: K21.9 Gastro-esophageal reflux disease without esophagitis (principal); K59.00 Constipation, unspecified | CPT/HCPCS: 99212 ==

== ENCOUNTER → 2021-04-19 15:23 | Outpatient (BNVA) | payer OTHER, SELFPAY | PROVIDERS: PCP Internal Medicine; Visit Provider Internal Medicine Endocrinology, Diabetes & Metabolism | DX: E03.9 Hypothyroidism, unspecified (principal); E06.3 Autoimmune thyroiditis | CPT/HCPCS: 99212 ==

== ENCOUNTER 2021-05-20 12:07 | Outpatient (REF) | payer OTHER, SELFPAY ==
--- NOTE | ~2021-05-20 | MM_ITS ---
EXAMINATION: MM DIAGNOSTIC DIGITAL BREAST TOMOSYNTHESIS, LEFT CLINICAL INFORMATION: Short interval follow-up for probable summation artifact on CC view initially noted at screening September 2020. The lifetime risk of breast cancer based on the Tyrer-Cuzick Model is 13%. COMPARISON: Mammography: 11/18/2020, 10/02/2020 (BI-RADS 0), 09/20/2019 TECHNIQUE: Digital breast tomosynthesis is performed in both the craniocaudal and mediolateral oblique views along with computer-aided detection (CAD). Synthesized 2D images are generated from the tomosynthesis. Additional left MLO view is provided. FINDINGS: There are scattered areas of fibroglandular density (ACR BI-RADS breast composition Category b). There is no asymmetric density posterior central left breast on current exam nor on the diagnostic mammography 11/18/2020. There is no interval developing density. The remainder the left breast is unremarkable. Results are provided to the patient at time of visit by the technologist. MM/MM tomosynthesis diagnostic LT IMPRESSION: No asymmetric or developing density posterior central left breast. ASSESSMENT: BI-RADS 2: Benign RECOMMENDATION: Routine annual mammography screening. This patient's information was entered into a reminder system with a target due date for their next mammogram.
== END 2021-05-20 12:08 | disposition home or self-care (01) ==
LOC: HO.MAMMO 12:07
PROVIDERS: PCP Advanced Practice Midwife; Visit Provider Internal Medicine
DX: R92.2 Inconclusive mammogram (principal)
CPT/HCPCS: 77061; 77065

== ENCOUNTER 2021-08-05 10:55 | Outpatient (REF) | payer OTHER, SELFPAY ==
[2021-08-05 11:09] LABS: MANUAL DIFF FLAG NO
[2021-08-05 11:56] LABS: Basophils Absolute Auto 0.1 X10*3/uL (0.0-0.2); Basophils Percent Auto 0.8 % (0-2); Eosinophils Absolute Auto 0.2 X10*3/uL (0.0-0.4); Eosinophils Percent Auto 2.6 % (0-4); Hemoglobin 13.4 g/dl (12.0-16.0); Imm Gran Abs Auto 0.02 X10*3/uL (0.00-0.03); Imm Gran Pct Auto 0.3 % (0.0-0.4); Lymphocytes Absolute Auto 1.7 X10*3/uL (1.2-4.9); Lymphocytes Percent Auto 27.9 % (20-40); Mean Corpuscular HGB Conc 35.3 g/dl (31.0-35.0); Mean Corpuscular Hemoglobin 33.1 pg (27.0-33.0); Mean Corpuscular Volume 93.8 fL (80-98); Mean Platelet Volume 9.9 fL (9.4-12.3); Monocytes Absolute Auto 0.5 X10*3/uL (0.1-1.2); Monocytes Percent Auto 8.1 % (2-11); Neutrophils Absolute Auto 3.7 X10*3/uL (2.0-8.3); Neutrophils Percent Auto 60.3 % (45-73); Platelet Count 265 X10*3/uL (160-400); Red Blood Count 4.05 X10*6/uL (4.20-5.50); Red Cell Distribution Width 12.7 % (11.0-16.0); White Blood Count 6.2 X10*3/uL (4.8-10.8)
[2021-08-05 12:06] LABS: Appearance Urine HAZY; Color Urine YELLOW; Glucose Urine UA NEG (NEG); Leukocyte Esterase Urine NEG (NEG); Nitrite Urine NEG (NEG); Urine Blood 3+ (NEG); Urine Ketones NEG (NEG); Urine Protein NEG (NEG-TRACE)
[2021-08-05 12:25] LABS: Alanine Aminotransferase 16 U/L (0-31); Alkaline Phosphatase 58 U/L (39-117); Anion Gap 9 (12-20); Aspartate Amino Transferase 21 U/L (5-31); Bilirubin Total 0.7 mg/dL (0.0-1.0); Blood Urea Nitrogen 13 mg/dL (9-16); Carbon Dioxide 28 mmol/L (22-29); Chloride 107 mmol/L (96-108); Estimated Glomerular Filt Rate > 60; Glucose Random 72 mg/dL (60-115); Potassium 4.3 mmol/L (3.3-5.1); Sodium 140 mmol/L (135-145); Total Protein 6.1 g/dL (6.5-8.0)
[2021-08-05 12:31] LABS: Amorphous Sediment Urine TRACE /LPF; Bacteria Urine 1+ /LPF; Squamous Epithelial Cell Urine 2+ /LPF; WBC Urine 0 /HPF (0-4)
[2021-08-05 12:37] LABS: Thyroid Stimulating Hormone 5.43 uIU/mL (0.32-4.0)
[2021-08-05 12:40] LABS: Free T4 (Free Thyroxine) 0.94 ng/dL (0.71-1.85)
== END 2021-08-05 10:56 | disposition home or self-care (01) ==
LOC: HO.LAB 10:55
PROVIDERS: Internal Medicine Endocrinology, Diabetes & Metabolism; PCP Internal Medicine; Visit Provider Internal Medicine
DX: R42 Dizziness and giddiness (principal); E03.9 Hypothyroidism, unspecified; E04.2 Nontoxic multinodular goiter
CPT/HCPCS: 36415; 80053; 81001; 84439; 84443; 85025

== ENCOUNTER 2022-03-01 07:33 | Outpatient (REF) | payer OTHER, SELFPAY ==
[2022-03-01 07:44] LABS: MANUAL DIFF FLAG NO
[2022-03-01 07:58] LABS: Basophils Absolute Auto 0.1 X10*3/uL (0.0-0.2); Basophils Percent Auto 0.8 % (0-2); Eosinophils Absolute Auto 0.2 X10*3/uL (0.0-0.4); Eosinophils Percent Auto 3.1 % (0-4); Hematocrit 36.2 % (37.0-47.0); Hemoglobin 12.8 g/dl (12.0-16.0); Imm Gran Abs Auto 0.02 X10*3/uL (0.00-0.03); Imm Gran Pct Auto 0.3 % (0.0-0.4); Immature Retic Fraction 14.9 % (3.0-15.9); Lymphocytes Absolute Auto 1.9 X10*3/uL (1.2-4.9); Lymphocytes Percent Auto 29.8 % (20-40); Mean Corpuscular HGB Conc 35.4 g/dl (31.0-35.0); Mean Corpuscular Hemoglobin 32.4 pg (27.0-33.0); Mean Corpuscular Volume 91.6 fL (80.0-98.0); Monocytes Absolute Auto 0.5 X10*3/uL (0.1-1.2); Monocytes Percent Auto 7.7 % (2-11); Neutrophils Absolute Auto 3.7 x10*3/uL (2.0-8.3); Neutrophils Percent Auto 58.3 % (45-73); Platelet Count 214 X10*3/uL (160-400); Red Blood Count 3.95 X10*6/uL (4.20-5.50); Red Cell Distribution Width 12.6 % (11.0-16.0); Retic HGB Equivalent 37.3 pg (30.0-35.0); Reticulocyte Percent 1.9 % (0.5-1.8); Reticulocytes Absolute 0.075 X10*6/uL (0.026-0.095); White Blood Count 6.4 X10*3/uL (4.8-10.8)
[2022-03-01 08:31] LABS: Alanine Aminotransferase 13 U/L (0-31); Alkaline Phosphatase 45 U/L (39-117); Anion Gap 9 (12-20); Aspartate Amino Transferase 17 U/L (5-31); Bilirubin Total 0.7 mg/dL (0.0-1.0); Blood Urea Nitrogen 9 mg/dL (9-16); Carbon Dioxide 23 mmol/L (22-29); Chloride 112 mmol/L (96-108); Cholesterol 157 mg/dL; Estimated Glomerular Filt Rate > 60; Glucose Random 102 mg/dL (60-115); HDL Cholesterol 58 mg/dL; Iron 64 mcg/dL (30-160); LDL Cholesterol Calculated 91 mg/dl; Percent Iron Saturation 23 % (15-50); Potassium 3.9 mmol/L (3.3-5.1); Sodium 140 mmol/L (135-145); Total Iron Binding Capacity 280 mcg/dL (228-428); Triglycerides 40 mg/dL; Unsaturated Iron Binding 216 ug/dL
[2022-03-01 08:53] LABS: Ferritin 147 ng/mL (10-250); Free T4 (Free Thyroxine) 1.15 ng/dL (0.71-1.85); Vitamin D 25-OH Total 33.4 ng/mL (>30)
[2022-03-01 14:27] LABS: Folate 14.2 ng/mL (> or = 4.0); Vitamin B12 462 pg/mL (200-900)
== END 2022-03-01 07:34 | disposition home or self-care (01) ==
LOC: HO.LAB 07:33
PROVIDERS: PCP Internal Medicine; Visit Provider Internal Medicine
DX: E03.9 Hypothyroidism, unspecified (principal); D50.0 Iron deficiency anemia secondary to blood loss (chronic); E78.00 Pure hypercholesterolemia, unspecified
CPT/HCPCS: 36415; 80053; 80061; 82306; 82607; 82728; 82746; 83540; 84439; 84443; 85025; 85045

== ENCOUNTER 2022-05-22 10:25 | Outpatient (REF) | payer OTHER, SELFPAY ==
--- NOTE | ~2022-05-22 | MM_ITS ---
EXAMINATION: MM SCREENING DIGITAL BREAST TOMOSYNTHESIS, BILATERAL CLINICAL INFORMATION: Screening. Asymptomatic. The lifetime risk of breast cancer based on the Tyrer-Cuzick Model is 8%. COMPARISON: Mammography: 05/20/2021, 11/18/2020, 10/02/2020, 09/20/2019, 09/14/2018 TECHNIQUE: Digital breast tomosynthesis is performed in both the craniocaudal and mediolateral oblique views along with computer-aided detection (CAD). Synthesized 2D images are generated from the tomosynthesis. FINDINGS: There are scattered areas of fibroglandular density (ACR BI-RADS breast composition Category b). There are no significant masses, abnormal calcifications, or other abnormalities. Parenchymal pattern is similar to prior studies. There is no developing density or architectural abnormality. The axilla and skin contours are unremarkable. No significant changes. MM/MM tomosynthesis screening BI IMPRESSION: No mammographic evidence of malignancy. ASSESSMENT: BI-RADS 1: Negative RECOMMENDATION: Routine annual mammography screening. This patient's information was entered into a reminder system with a target due date for their next mammogram.
== END 2022-05-22 10:26 | disposition home or self-care (01) ==
LOC: HO.MAMMO 10:25
PROVIDERS: PCP Internal Medicine; Visit Provider Internal Medicine
DX: Z12.31 Encounter for screening mammogram for malignant neoplasm of breast (principal)
CPT/HCPCS: 77063; 77067

== ENCOUNTER 2022-09-15 09:55 | Outpatient (REF) | payer OTHER, SELFPAY ==
[2022-09-15 10:15] LABS: MANUAL DIFF FLAG NO
[2022-09-15 10:29] LABS: Basophils Absolute Auto 0.1 X10*3/uL (0.0-0.2); Basophils Percent Auto 0.8 % (0-2); Eosinophils Absolute Auto 0.2 X10*3/uL (0.0-0.4); Eosinophils Percent Auto 3.5 % (0-4); Hematocrit 39.3 % (37.0-47.0); Hemoglobin 13.7 g/dl (12.0-16.0); Imm Gran Abs Auto 0.02 X10*3/uL (0.00-0.03); Imm Gran Pct Auto 0.3 % (0.0-0.4); Immature Retic Fraction 12.4 % (3.0-15.9); Lymphocytes Absolute Auto 1.4 X10*3/uL (1.2-4.9); Lymphocytes Percent Auto 22.9 % (20-40); Mean Corpuscular HGB Conc 34.9 g/dl (31.0-35.0); Mean Corpuscular Volume 91.8 fL (80.0-98.0); Mean Platelet Volume 9.9 fL (9.4-12.3); Monocytes Absolute Auto 0.5 X10*3/uL (0.1-1.2); Monocytes Percent Auto 7.3 % (2-11); Neutrophils Percent Auto 65.2 % (45-73); Platelet Count 249 X10*3/uL (160-400); Red Blood Count 4.28 X10*6/uL (4.20-5.50); Red Cell Distribution Width 12.3 % (11.0-16.0); Reticulocyte Percent 2.1 % (0.5-1.8); Reticulocytes Absolute 0.088 X10*6/uL (0.026-0.095); White Blood Count 6.2 X10*3/uL (4.8-10.8)
[2022-09-15 12:24] LABS: Alanine Aminotransferase 7 U/L (0-31); Albumin Level 4.1 g/dL (3.5-5.0); Alkaline Phosphatase 53 U/L (39-117); Anion Gap 12 (12-20); Aspartate Amino Transferase 16 U/L (5-31); Bilirubin Total 0.7 mg/dL (0.0-1.0); Blood Urea Nitrogen 9 mg/dL (9-16); Carbon Dioxide 28 mmol/L (22-29); Chloride 105 mmol/L (96-108); Cholesterol 183 mg/dL; Estimated Glomerular Filt Rate > 60; Ferritin 157 ng/mL (10-250); Free T4 (Free Thyroxine) 0.94 ng/dL (0.71-1.85); Glucose Random 93 mg/dL (60-115); HDL Cholesterol 57 mg/dL; Iron 101 mcg/dL (30-160); LDL Cholesterol Calculated 111 mg/dl; Percent Iron Saturation 36 % (15-50); Potassium 4.2 mmol/L (3.3-5.1); Thyroid Stimulating Hormone 3.44 uIU/mL (0.32-4.0); Total Iron Binding Capacity 280 mcg/dL (228-428); Total Protein 6.3 g/dL (6.5-8.0); Triglycerides 79 mg/dL; Unsaturated Iron Binding 179 ug/dL; Vitamin D 25-OH Total 39.8 ng/mL (>30)
[2022-09-15 12:27] LABS: Folate 9.9 ng/mL (> or = 4.0); Vitamin B12 339 pg/mL (200-900)
[2022-09-15 12:48] LABS: Sodium 141 mmol/L (135-145)
== END 2022-09-15 09:56 | disposition home or self-care (01) ==
LOC: HO.LAB 09:55
PROVIDERS: PCP Internal Medicine; Visit Provider Internal Medicine
DX: E03.9 Hypothyroidism, unspecified (principal); D50.0 Iron deficiency anemia secondary to blood loss (chronic); E78.00 Pure hypercholesterolemia, unspecified; K21.9 Gastro-esophageal reflux disease without esophagitis
CPT/HCPCS: 36415; 80053; 80061; 82306; 82607; 82728; 82746; 83540; 84439; 84443; 85025; 85045

== ENCOUNTER → 2022-11-24 09:20 | Outpatient (BNVA) | payer OTHER, SELFPAY | PROVIDERS: PCP Internal Medicine; Referring Provider Internal Medicine; Visit Provider Nurse Practitioner Family | DX: Z76.0 Encounter for issue of repeat prescription (principal); K21.9 Gastro-esophageal reflux disease without esophagitis; Z90.49 Acquired absence of other specified parts of digestive tract; K59.04 Chronic idiopathic constipation | CPT/HCPCS: 99212 ==

== ENCOUNTER 2022-12-18 10:23 | Outpatient (REF) | payer OTHER, SELFPAY ==
[2022-12-18 12:04] LABS: HIV AB/AG Nonreactive (Nonreactive); HIV Num 1 0.07 S/CO (0.00-0.99)
== END 2022-12-18 10:24 | disposition home or self-care (01) ==
LOC: HO.LAB 10:23
PROVIDERS: PCP Internal Medicine; Visit Provider Internal Medicine
DX: Z11.4 Encounter for screening for human immunodeficiency virus [HIV] (principal); J32.9 Chronic sinusitis, unspecified
CPT/HCPCS: 36415; 87389

== ENCOUNTER 2022-12-29 07:37 | Outpatient (REF) | payer OTHER, SELFPAY ==
--- NOTE | ~2022-12-29 | CT_ITS ---
EXAMINATION: CT SINUS WITHOUT CONTRAST CLINICAL INFORMATION: Chronic sinusitis. COMPARISON: Plain films of the facial bones 08/03/2020. Remote CT scan of the sinuses 04/11/2012. CT scan of the head 05/19/2018. TECHNIQUE: Multidetector helical imaging was performed in the axial plane with generation of coronal and sagittal reformatted images. This CT examination was performed using dose optimization techniques as appropriate, variously including the following: *Automated exposure control *Adjustment of mA and/or kV according to patient size (this includes techniques or standardized protocols for targeted exams where dose is matched to indication/reason for exam; i.e. extremities or head) *Use of iterative reconstruction technique DLP: 104 mGy-cm. FINDINGS: FRONTAL SINUSES AND DRAINAGE PATHWAYS: The frontal sinuses are well developed bilaterally. They are well-aerated with patent frontal sinus drainage pathways. MAXILLARY SINUSES AND DRAINAGE PATHWAYS: The maxillary sinuses are well-developed and appear clear bilaterally. The ostiomeatal complexes are patent bilaterally. ETHMOID SINUSES: The ethmoid sinuses are well-developed bilaterally. There is minimal mucoperiosteal thickening in the anterior ethmoid air cells bilaterally. There are bilateral Ervin cells, more prominent on the right. SPHENOID SINUSES AND DRAINAGE PATHWAYS: The sphenoid sinuses are well-aerated bilaterally. They are clear with patent sphenoethmoidal recesses. NASAL CAVITY AND NASAL SEPTUM: The nasal septum is essentially in the midline. There are no prominent nasal septal spurs. There are no large nasal cavity masses or polyps. ADDITIONAL RELEVANT FINDINGS: The lamina papyracea are intact. The carotid canals are normally covered by bone. The ethmoid roofs are symmetric. No periapical disease is seen. The TMJs and orbits are normal. The visualized mastoid air cells are clear. There are no acute intracranial findings. CT/CT sinus wo IV con IMPRESSION: 1. There is no significant active sinus disease. 2. The ostiomeatal complexes are patent bilaterally. 3. The nasal septum is in the midline and there are no prominent nasal septal spurs.
== END 2022-12-29 07:38 | disposition home or self-care (01) ==
LOC: HO.CT 07:37
PROVIDERS: Visit Provider Internal Medicine
DX: J32.9 Chronic sinusitis, unspecified (principal)
CPT/HCPCS: 70486

== ENCOUNTER 2023-01-14 21:00 | Emergency (ER) | payer OTHER, SELFPAY ==
[2023-01-14 21:38] VITALS: BP 133/81; PULSE 88; RESP 18; TEMP 37.2; O2SAT 100; BMI 28.7
[2023-01-14] MEDS: Ondansetron ODT 4 MG TAB.RAPDIS TRANSLINGU (21:59)
[2023-01-14 22:41] LABS: Basophils Percent Auto 0.3 % (0-2); Eosinophils Absolute Auto 0.1 X10*3/uL (0.0-0.4); Eosinophils Percent Auto 0.6 % (0-4); Hematocrit 39.6 % (37.0-47.0); Hemoglobin 14.1 g/dl (12.0-16.0); Imm Gran Abs Auto 0.02 X10*3/uL (0.00-0.03); Imm Gran Pct Auto 0.2 % (0.0-0.4); Lymphocytes Absolute Auto 0.4 X10*3/uL (1.2-4.9); MANUAL DIFF FLAG SCAN; Mean Corpuscular HGB Conc 35.6 g/dl (31.0-35.0); Mean Corpuscular Volume 89.8 fL (80.0-98.0); Mean Platelet Volume 9.8 fL (9.4-12.3); Monocytes Absolute Auto 0.3 X10*3/uL (0.1-1.2); Monocytes Percent Auto 2.7 % (2-11); Neutrophils Absolute Auto 9.9 x10*3/uL (2.0-8.3); Neutrophils Percent Auto 92.2 % (45-73); Platelet Count 216 X10*3/uL (160-400); Red Blood Count 4.41 X10*6/uL (4.20-5.50); Red Cell Distribution Width 12.8 % (11.0-16.0); SCAN SMEAR FLAG 1; White Blood Count 10.7 X10*3/uL (4.8-10.8)
[2023-01-14 22:53] LABS: Alanine Aminotransferase 17 U/L (0-31); Albumin Level 4.5 g/dL (3.5-5.0); Alkaline Phosphatase 56 U/L (39-117); Anion Gap 13 (12-20); Aspartate Amino Transferase 26 U/L (5-31); Blood Urea Nitrogen 13 mg/dL (9-16); Calcium 8.9 mg/dL (8.4-10.2); Carbon Dioxide 27 mmol/L (22-29); Chloride 104 mmol/L (96-108); Estimated Glomerular Filt Rate > 60; Glucose Random 107 mg/dL (60-115); Lipase 31 U/L (8-78); Potassium 3.8 mmol/L (3.3-5.1); Sodium 140 mmol/L (135-145); Total Protein 6.5 g/dL (6.5-8.0)
[2023-01-14 22:57] LABS: SLIDE REVIEW VERIFIED
[2023-01-14 23:07] LABS: COVID-19 Test Negative (Negative); IDNOW Serial# 6674DD1D
[2023-01-14 23:13] VITALS: BP 98/69; PULSE 80; RESP 18; TEMP 37; O2SAT 98
--- NOTE | 2023-01-14 23:53 | ED_ITS ---
HPI - Nausea/Vomiting/Diarrhea General Chief complaint: Nausea/Vomiting/Diarrhea Stated complaint: vomiting, abd pain Time Seen by Provider: 01/14/23 23:52 Source: patient Mode of arrival: ambulatory Limitations: no limitations History of Present Illness HPI Narrative: Patient otherwise healthy lunch within 2 hours vomited 5-6 times had 4 loose bowels diffuse abdominal cramps feeling much better now after receiving Zofran sublingual in triage. Patient able to take p.o. fluids. No patient complaining of left-sided headache similar to that when she gets migraine but less severe than before no significant abdominal pain Related Data Home Medications Medication Instructions Recorded Confirmed Lactobacillus acidophilus 10 PO DAILY 08/02/20 09/15/22 billion cell capsule cholecalciferol (vitamin D3) 25 25 mcg PO DAILY 08/23/20 09/15/22 mcg (1,000 unit) capsule citalopram 10 mg tablet 5 mg PO DAILY 08/30/21 09/15/22 Previous Rx's Medication Instructions Recorded cetirizine 10 mg tablet (Zyrtec) 10 mg PO DAILY PRN allergy 07/13/22 symptoms #90 tabs levothyroxine 100 mcg tablet 100 mcg PO DAILY 30 days #90 tabs 07/25/22 amitriptyline 10 mg tablet 10 mg PO BEDTIME #90 tabs 11/18/22 dexlansoprazole 60 mg 60 mg PO BEDTIME #90 caps 11/24/22 capsule,biphase delayed release (Dexilant) sennosides 8.6 mg tablet 8.6 - 17.2 mg PO DAILY 30 days 11/24/22 #180 tabs xgvhbocugy-crrizvvhgfrtq-cgqjnoxp 1 cap PO Q6H PRN headache #20 caps 01/15/23 50 mg-300 mg-40 mg capsule (Fioricet) ondansetron 4 mg disintegrating 4 mg PO Q6-8H PRN nausea and 01/15/23 tablet vomiting #7 tabs Allergies Allergy/AdvReac Type Severity Reaction Status Date / Time pomegranate Allergy Severe ANAPHYLAXIS Verified 01/14/23 21:44 Penicillins Allergy Mild RASH Verified 01/14/23 21:44 opiates Allergy Unknown panic Verified 01/14/23 21:44 attacks penicillin V Allergy Unknown severe Verified 01/14/23 21:44 yeast infections Opioids - Morphine Analogues AdvReac Severe DYSPHORIA Verified 01/14/23 21:44 [OPIOIDS-MORPHINE & RELATED] AND PANIC ATTACKS Review of Systems Review of Systems: Yes all other systems are reviewed and are negative [facility] Past Medical History Medical History Anxiety and depression Endometrial thickening on ultrasound GERD (gastroesophageal reflux disease) Shreya's disease Herpes genitalis Hypothyroidism Low back pain Lump on face Maxillary sinusitis Migraine Nasal congestion Nausea Non-toxic multinodular goiter Swelling of left foot Urethral diverticulum Surgical History History of esophagogastroduodenoscopy (EGD) Hx of bilateral salpingectomy Hx of cholecystectomy Hx of hiatal hernia Family History Family History Father No problems noted. Mother Diabetes mellitus HTN (hypertension) Maternal Uncle Pancreatic cancer Alcohol abuse Maternal Grandfather Diabetes mellitus Maternal Aunt Breast cancer Brother Substance abuse Other Mental health disorder Social History Social History Housing: House Alcohol intake: never Patient Tobacco Use Status: Former Tobacco user Years Smoked: quit 2009 e-Cigarette/Vaping Use: Never Used Second Hand Smoke Exposure: No Advance Directives: No Advance Directives Information Provided: No service: No Current occupational status: employed Cognitive needs: No Hearing needs: No Vision needs: No Physical Exam Vital Signs: Vital Signs: Last Vital Signs Temp 98.6 F 01/14/23 23:13 Pulse 80 01/14/23 23:13 Resp 18 01/14/23 23:13 BP 98/69 01/14/23 23:13 Pulse Ox 98 01/14/23 23:13 O2 Del Method Room Air 01/14/23 23:13 BMI result Body Mass Index 28.7 Appearance: Alert. Oriented X3. No acute distress. Eyes: no pallor/icterus ENT: Pharynx normal. Oral Mucosa moist Neck: Normal inspection. Neck supple. CVS: Normal heart rate and rhythm. Pulses normal. Respiratory: No respiratory distress. Equal air entry bilateral, Abdomen: Soft and nontender. Bowel sounds are present, no mass palpable, no CVA tenderness Skin: Skin warm and dry. Normal skin color. Normal skin turgor. Neuro: Oriented X 3. No motor deficit. Medications Administered Discontinued Medications Generic Name Dose Route Start Last Admin Trade Name Vazquez PRN Reason Stop Dose Admin Ondansetron HCl 4 mg 01/14/23 21:45 01/14/23 21:59 Ondansetron Odt 4 Mg Tab.Kaylah SAUCEDO 01/14/23 21:46 4 mg ONCE ONE Administration Medical Decision Making Medical Decision Making [facility] Narrative: Patient likely with gastroenteritis likely viral labs are stable discharge patient home on Zofran taking p.o. fluids Lab Data [facility] Lab Attestation statement: I reviewed the patient's lab results. 01/14/23 22:31 01/14/23 22:31 Labs: Lab Results 01/14/23 01/14/23 01/14/23 Range/Units 22:31 22:31 22:31 WBC 10.7 (4.8-10.8) X10*3/uL RBC 4.41 (4.20-5.50) X10*6/uL Hgb 14.1 (12.0-16.0) g/dl Hct 39.6 (37.0-47.0) % MCV 89.8 (80.0-98.0) fL MCH 32.0 (27.0-33.0) pg MCHC 35.6 H (31.0-35.0) g/dl RDW 12.8 (11.0-16.0) % Plt Count 216 (160-400) X10*3/uL MPV 9.8 (9.4-12.3) fL Immature Gran % (Auto) 0.2 (0.0-0.4) % Neut % (Auto) 92.2 H (45-73) % Lymph % (Auto) 4.0 L (20-40) % [place] % (Auto) 2.7 (2-11) % Eos % (Auto) 0.6 (0-4) % Baso % (Auto) 0.3 (0-2) % Lymph # (Auto) 0.4 L (1.2-4.9) X10*3/uL [place] # (Auto) 0.3 (0.1-1.2) X10*3/uL Eos # (Auto) 0.1 (0.0-0.4) X10*3/uL Baso # (Auto) 0.0 (0.0-0.2) X10*3/uL Abs Immat Gran (auto) 0.02 (0.00-0.03) X10*3/uL Absolute Neuts (auto) 9.9 H (2.0-8.3) x10*3/uL Absolute Nucleated RBC 0.000 (0.0-0.012) X10*3/uL Nucleated RBC % (auto) 0.0 (0.0-0.2) /100WBC Smear Tech's Comments VERIFIED Sodium 140 (135-145) mmol/L Potassium 3.8 (3.3-5.1) mmol/L Chloride 104 (96-108) mmol/L Carbon Dioxide 27 (22-29) mmol/L Anion Gap 13 (12-20) BUN 13 (9-16) mg/dL Creatinine 0.77 (0.5-1.4) mg/dL Estim Creat Clear Calc 93.0 Estimated GFR > 60 Random Glucose 107 (60-115) mg/dL Calcium 8.9 (8.4-10.2) mg/dL Total Bilirubin 1.0 (0.0-1.0) mg/dL AST 26 (5-31) U/L ALT 17 (0-31) U/L Alkaline Phosphatase 56 (39-117) U/L Total Protein 6.5 (6.5-8.0) g/dL Albumin 4.5 (3.5-5.0) g/dL Lipase 31 (8-78) U/L COVID-19 (NELLY) Negative (Negative) COVID-19 Clin Com See Note Discharge Plan Discharge Clinical Impression: Gastroenteritis Patient Disposition: Home, Self-Care Instructions: Gastroenteritis (ED) Additional Instructions: Drink plenty of fluids Nausea medication as prescribed Follow with PCP if not better Medicine for migraine as prescribed Prescriptions: New ondansetron 4 mg tablet,disintegrating 4 mg PO Q6-8H PRN (Reason: nausea and vomiting) Qty: 7 0RF qszuyplzrt-ufvuwhxmuvtrs-wved [Fioricet] 50-300-40 mg capsule 1 cap PO Q6H PRN (Reason: headache) Qty: 20 0RF No Action levothyroxine 100 mcg tablet 100 mcg PO DAILY 30 Days Qty: 90 1RF amitriptyline 10 mg tablet 10 mg PO BEDTIME Qty: 90 2RF cholecalciferol (vitamin D3) 25 mcg (1,000 unit) capsule 25 mcg PO DAILY Probiotic 10 billion cell capsule PO DAILY citalopram 10 mg tablet 5 mg PO DAILY cetirizine [Zyrtec] 10 mg tablet 10 mg PO DAILY PRN (Reason: allergy symptoms) Qty: 90 2RF dexlansoprazole [Dexilant] 60 mg capsule,biphase delayed releas 60 mg PO BEDTIME Qty: 90 3RF sennosides 8.6 mg tablet 8.6 - 17.2 mg PO DAILY 30 Days Qty: 180 3RF
[2023-01-15] MEDS: Butalb/Acetamin/Caff 50/325/40 TABLET 1 TAB PO (00:08)
--- NOTE | 2023-01-15 00:12 | PC.NURSE ---
Pt aox3 in no apparent distress. Discharge instructions reviewed with pt. Pt verbalizes understanding.
== END 2023-01-15 00:12 | disposition home or self-care (01) ==
PROVIDERS: Emergency Provider Internal Medicine; PCP Internal Medicine
DX: K52.9 Noninfective gastroenteritis and colitis, unspecified (principal); R11.2 Nausea with vomiting, unspecified; Z20.822 Contact with and (suspected) exposure to COVID-19; Z20.828 Contact with and (suspected) exposure to other viral communicable diseases; Z79.899 Other long term (current) drug therapy
CPT/HCPCS: 36415; 80053; 83690; 85025; 87635; 99283

== ENCOUNTER 2023-01-31 08:44 | Emergency (ER) | payer OTHER, SELFPAY ==
[2023-01-31 09:08] VITALS: BP 107/71; PULSE 71; RESP 16; TEMP 36.6; O2SAT 97; BMI 28.3
--- NOTE | 2023-01-31 09:09 | ED_ITS ---
HPI - Ear Problem General Chief complaint: General Medical Stated complaint: L ear pain Time Seen by Provider: 01/31/23 08:57 Source: patient Mode of arrival: ambulatory Limitations: no limitations History of Present Illness HPI Narrative: 42-year-old female with history of seasonal allergies, migraines, GERD, sinusitis, anxiety who presents to the ER for evaluation of earache on the left side for the last 3 days. She states she has an ache inside of the ear that has been worsening. The pain extends to her head and down into her drop. It is worse when she lays on that side. She denies any decreased hearing or drainage from the ear. She has chronic allergies and is on Zyrtec. She has chronic nasal congestion and sinus pressure. No fevers or chills. MD Complaint: ear pain Location: left ear Duration: constant Severity: moderate Exacerbating factors: position of head and palpation Discharge from ear: no Treatment prior to arrival: none Related Data Home Medications Medication Instructions Recorded Confirmed Lactobacillus acidophilus 10 PO DAILY 08/02/20 09/15/22 billion cell capsule cholecalciferol (vitamin D3) 25 25 mcg PO DAILY 08/23/20 09/15/22 mcg (1,000 unit) capsule citalopram 10 mg tablet 5 mg PO DAILY 08/30/21 09/15/22 Previous Rx's Medication Instructions Recorded cetirizine 10 mg tablet (Zyrtec) 10 mg PO DAILY PRN allergy 07/13/22 symptoms #90 tabs amitriptyline 10 mg tablet 10 mg PO BEDTIME #90 tabs 11/18/22 dexlansoprazole 60 mg 60 mg PO BEDTIME #90 caps 11/24/22 capsule,biphase delayed release (Dexilant) sennosides 8.6 mg tablet 8.6 - 17.2 mg PO DAILY 30 days 11/24/22 #180 tabs zoatptoveh-hykaikficvotz-lopqzroa 1 cap PO Q6H PRN headache #20 caps 01/15/23 50 mg-300 mg-40 mg capsule (Fioricet) ondansetron 4 mg disintegrating 4 mg PO Q6-8H PRN nausea and 01/15/23 tablet vomiting #7 tabs levothyroxine 100 mcg tablet 100 mcg PO DAILY 30 days #90 tabs 01/29/23 amoxicillin 875 mg-potassium 1 tab PO BID #14 tabs 01/31/23 clavulanate 125 mg tablet ibuprofen 600 mg tablet 600 mg PO Q8H PRN fever or pain 01/31/23 #20 tabs Allergies Allergy/AdvReac Type Severity Reaction Status Date / Time pomegranate Allergy Severe ANAPHYLAXIS Verified 01/14/23 21:44 Penicillins Allergy Mild RASH Verified 01/14/23 21:44 opiates Allergy Unknown panic Verified 01/14/23 21:44 attacks penicillin V Allergy Unknown severe Verified 01/14/23 21:44 yeast infections Opioids - Morphine Analogues AdvReac Severe DYSPHORIA Verified 01/14/23 21:44 [OPIOIDS-MORPHINE & RELATED] AND PANIC ATTACKS Review of Systems Review of Systems: Yes all other systems are reviewed and are negative [facility] Past Medical History Medical History Anxiety and depression Endometrial thickening on ultrasound GERD (gastroesophageal reflux disease) Shreya's disease Herpes genitalis Hypothyroidism Low back pain Lump on face Maxillary sinusitis Migraine Nasal congestion Nausea Non-toxic multinodular goiter Swelling of left foot Urethral diverticulum Surgical History History of esophagogastroduodenoscopy (EGD) Hx of bilateral salpingectomy Hx of cholecystectomy Hx of hiatal hernia Family History Family History Father No problems noted. Mother Diabetes mellitus HTN (hypertension) Maternal Uncle Pancreatic cancer Alcohol abuse Maternal Grandfather Diabetes mellitus Maternal Aunt Breast cancer Brother Substance abuse Other Mental health disorder Social History Social History Housing: House Alcohol intake: never Patient Tobacco Use Status: Former Tobacco user Years Smoked: quit 2009 e-Cigarette/Vaping Use: Never Used Second Hand Smoke Exposure: No Advance Directives: No Advance Directives Information Provided: No service: No Current occupational status: employed Cognitive needs: No Hearing needs: No Vision needs: No Physical Exam Vital Signs: Vital Signs: Last Vital Signs Temp 97.9 F 01/31/23 09:08 Pulse 71 01/31/23 09:08 Resp 16 01/31/23 09:08 BP 107/71 01/31/23 09:08 Pulse Ox 97 01/31/23 09:08 BMI result Body Mass Index 28.3 Appearance: Alert. Oriented X3. No acute distress. HEENT: normal external inspection. normal right TM inspection. left TM with erythema and bulging, tender to palpation. no mastoid tenderness. CVS: Normal heart rate and rhythm. Pulses normal. Respiratory: No respiratory distress. Lungs CTAB Skin: Skin warm and dry. Normal skin color. Normal skin turgor. No rashes. Extremities: normal inspection x4 Neuro: Oriented X 3. No motor deficit. No sensory deficit. Medical Decision Making Medical Decision Making MDM Narrative: 42-year-old female presents to the ER for evaluation of left ear pain for the last 3 days. Her examination is consistent with acute otitis media with a b ulging erythematous tympanic membrane. She does have seasonal allergies x-ray be contributing. Will start her on antibiotics. She states her penicillin ?allergy? is due to high a occurrence of yeast infections once on penicillins. She states she has been taking probiotics and is okay with getting Augmentin for her ear infection. She is stable for discharge home. She will follow-up with her PCP as needed. Differential Diagnosis Differential Diagnoses: The differential diagnosis associated with the presentation includes otitis media, otitis externa, allergic rhinitis, mastoiditis, parotidits External Record Review External record reviewed: Outpatient record and Prior outpatient labs Prescription Management I considered prescription management with: Pain Medication and Antibiotic Chronic Conditions Patient?s care impacted by: Other (Seasonal allergies) Critical Care Time Critical Care Time Critical Care Time: No Discharge Plan Discharge Clinical Impression: Acute otitis media Patient Disposition: Home, Self-Care Instructions: Ear Infection (ED) Additional Instructions: Take the prescribed antibiotic as directed. Complete the entire course and do not miss any doses. Continue your allergy medication. Take ibuprofen as directed. Also recommend taking Tylenol 975 mg every 6 hours as needed for pain. Follow-up with your doctor as needed. If you develop new or worsening symptoms call 911 or come back to the ER for further evaluation. Prescriptions: New amoxicillin-pot clavulanate 875-125 mg tablet 1 tab PO BID Qty: 14 0RF ibuprofen 600 mg tablet 600 mg PO Q8H PRN (Reason: fever or pain) Qty: 20 0RF No Action amitriptyline 10 mg tablet 10 mg PO BEDTIME Qty: 90 2RF levothyroxine 100 mcg tablet 100 mcg PO DAILY 30 Days Qty: 90 1RF ondansetron 4 mg tablet,disintegrating 4 mg PO Q6-8H PRN (Reason: nausea and vomiting) Qty: 7 0RF ijfavsefut-rkctbndtboepw-tksk [Fioricet] 50-300-40 mg capsule 1 cap PO Q6H PRN (Reason: headache) Qty: 20 0RF cholecalciferol (vitamin D3) 25 mcg (1,000 unit) capsule 25 mcg PO DAILY Probiotic 10 billion cell capsule PO DAILY citalopram 10 mg tablet 5 mg PO DAILY cetirizine [Zyrtec] 10 mg tablet 10 mg PO DAILY PRN (Reason: allergy symptoms) Qty: 90 2RF dexlansoprazole [Dexilant] 60 mg capsule,biphase delayed releas 60 mg PO BEDTIME Qty: 90 3RF sennosides 8.6 mg tablet 8.6 - 17.2 mg PO DAILY 30 Days Qty: 180 3RF
== END 2023-01-31 09:14 | disposition home or self-care (01) ==
PROVIDERS: Emergency Provider Emergency Medicine Emergency Medical Services; PCP Internal Medicine
DX: H66.92 Otitis media, unspecified, left ear (principal); H92.02 Otalgia, left ear
CPT/HCPCS: 99282; 99283

== ENCOUNTER 2023-04-28 08:31 | Emergency (ER) | payer OTHER, SELFPAY ==
--- NOTE | ~2023-04-28 | XR_ITS ---
EXAMINATION: XR CHEST CLINICAL INFORMATION: Upper respiratory symptoms. COMPARISON: 12/09/2020 chest radiograph. TECHNIQUE: Frontal view of the chest was obtained. FINDINGS: No significant abnormality is noted involving the heart, lungs, mediastinum, bony thorax or soft tissues. XR/XR chest 1V IMPRESSION: No acute cardiopulmonary process.
[2023-04-28 08:39] VITALS: BP 108/76; PULSE 93; RESP 18; TEMP 36.6; O2SAT 98; BMI 28.6
[2023-04-28 09:10] LABS: COVID-19 Test Negative (Negative); IDNOW Serial# 08D9AD1C; IDNOW Serial# BCCEAD1C; Strep A Nucleic Acid Negative (Negative)
--- NOTE | 2023-04-28 10:21 | ED.URI ---
HPI - URI/Sore Throat General Chief Complaint: Upper Respiratory Symptoms Stated Complaint: sore throat, stuffy nose, hip pain Time Seen by Provider: 04/28/23 09:04 Source: patient Mode of arrival: ambulatory Limitations: no limitations History of Present Illness HPI Narrative: patient is a 42-year-old female presents to the emergency department for evaluation of upper respiratory symptoms; sore throat, cough, rhinorrhea, left ear pain with onset of symptoms x3 days. Denies any drainage from the ear, or decreased hearing. Denies difficulty swallowing. Denies chest pain or shortness of breath. In addition she is reporting pain to the right lower back radiating into her hip that is consistent with prior sciatica. In the past she has responded well to ibuprofen for this pain, but she did not have any at home therefore she has not taken any. She denies any genitourinary symptoms, fevers, chills, saddle anesthesia, incontinence/ bladder or bowel dysfunction. Related Data Home Medications Medication Instructions Recorded Confirmed Lactobacillus acidophilus 10 PO DAILY 08/02/20 02/13/23 billion cell capsule cholecalciferol (vitamin D3) 25 25 mcg PO DAILY 08/23/20 02/13/23 mcg (1,000 unit) capsule Previous Rx's Medication Instructions Recorded dexlansoprazole 60 mg 60 mg PO BEDTIME #90 caps 11/24/22 capsule,biphase delayed release (Dexilant) levothyroxine 100 mcg tablet 100 mcg PO DAILY 30 days #90 tabs 01/29/23 ibuprofen 600 mg tablet 600 mg PO Q8H PRN fever or pain 01/31/23 #20 tabs cetirizine 10 mg tablet (Zyrtec) 10 mg PO DAILY PRN allergy 02/13/23 symptoms #90 tabs propranolol 10 mg tablet 10 mg PO BID #180 tabs 03/20/23 sennosides 8.6 mg tablet 8.6 - 17.2 mg PO DAILY 30 days 04/24/23 #180 tabs amoxicillin 875 mg-potassium 1 tab PO Q12H #14 tabs 04/28/23 clavulanate 125 mg tablet ibuprofen 600 mg tablet 600 mg PO Q8H PRN pain #30 tabs 04/28/23 Allergies Allergy/AdvReac Type Severity Reaction Status Date / Time pomegranate Allergy Severe ANAPHYLAXIS Verified 04/28/23 08:36 opiates Allergy Intermediate panic Verified 04/28/23 08:36 attacks penicillin V Allergy Intermediate severe Verified 04/28/23 08:36 yeast infections Penicillins Allergy Mild RASH Verified 04/28/23 08:36 Opioids - Morphine Analogues AdvReac Severe DYSPHORIA Verified 04/28/23 08:36 [OPIOIDS-MORPHINE & RELATED] AND PANIC ATTACKS Review of Systems Review of Systems: Constitutional: No fever. no chills. No weakness. no fatigue. ENT/ Mouth: No Ear Pain, positive Nasal Congestion, positive sore throat, No Rhinorrhea, No Swallowing Difficulty Skin: No rash or itching. Cardiovascular: No chest pain. No palpitations. Respiratory: No shortness of breath. Positive cough. No sputum production. Gastrointestinal: No nausea. No vomiting. No diarrhea. No abdominal pain. Genitourinary: No burning micturition. No urinary frequency. Neurologic: No headache. No dizziness. No syncope. No numbness or tingling in the extremities. Musculoskeletal: No muscle pain. positive back pain. No joint pain or stiffness. Yes all other systems are reviewed and are negative [facility] Past Medical History Attestation statement: The following information was validated with the patient. Source: old records reviewed Medical History Anxiety and depression Endometrial thickening on ultrasound GERD (gastroesophageal reflux disease) Shreya's disease Herpes genitalis Hypothyroidism Low back pain Lump on face Maxillary sinusitis Migraine Nasal congestion Nausea Non-toxic multinodular goiter Swelling of left foot Urethral diverticulum Surgical History History of esophagogastroduodenoscopy (EGD) Hx of bilateral salpingectomy Hx of cholecystectomy Hx of hiatal hernia Family History Family History Father No problems noted. Mother Diabetes mellitus HTN (hypertension) Maternal Uncle Pancreatic cancer Alcohol abuse Maternal Grandfather Diabetes mellitus Maternal Aunt Breast cancer Brother Substance abuse Other Mental health disorder Social History Social History Housing: House Alcohol intake: never Patient Tobacco Use Status: Former Tobacco user Tobacco use type: Cigarette Years Smoked: quit 2009 e-Cigarette/Vaping Use: Never Used Second Hand Smoke Exposure: No Advance Directives: No Advance Directives Information Provided: Yes service: No Current occupational status: employed Cognitive needs: No Hearing needs: No Vision needs: No Physical Exam Vital Signs: Vital Signs: Last Vital Signs Temp 97.9 F 04/28/23 08:39 Pulse 93 04/28/23 08:39 Resp 18 04/28/23 08:39 BP 108/76 04/28/23 08:39 Pulse Ox 98 04/28/23 08:39 O2 Del Method Room Air 04/28/23 08:39 BMI result Body Mass Index 28.6 Appearance: Alert.?Oriented to person, place and time. No acute distress.?Normal affect. Eyes: Pupils equal, round and reactive to light.? ENT: TM normal On the right. TM on the left erythematous and bulging. Posterior oropharynx mildly erythematous, uvula midline, no trismus, no drooling. No tonsillar hypertrophy..?? Neck: Normal inspection.? Neck supple.??No cervical adenopathy CVS: Heart sounds normal. Normal heart rate and rhythm.? Pulses normal.?? Respiratory: No respiratory distress.? Lung sounds clear to auscultation bilaterally?? Abdomen: Soft and non-tender. Normoactive bowel sounds. Skin: Skin warm and dry.? Normal skin color.? ? Extremities: No lower extremity edema.? back: right paraspinal tenderness upon palpation. No midline spinal tenderness, step-offs, deformities. No erythema, warmth, rash or lesions. Full AROM to the bilateral lower extremities. Neuro: Moves all extremities spontaneously. Sensation intact bilaterally. No motor deficits. Ambulates with normal steady gait. Course Course Course Narrative: Patient is a ___ with past medical history of _, presenting for evaluation of upper respiratory symptoms. COVID-19 testing _. Influenza testing _. At this time history and physical exam not consistent with ACS/PE/pneumonia. Well-appearing, nontoxic, afebrile, no tachycardia or tachypnea/hypoxia. Speaking clear full sentences, ambulatory with steady gait. Discussed conservative treatment including rest, hydration, Tylenol/ibuprofen as needed for fever and body aches, saline nasal spray, humidifier, [id number]-jobewur cold medication. Advised to follow-up with primary care provider as needed, discussed reasons to return back to the emergency department. All questions were answered. Patient discharged home in stable condition. Provided with a return to work/school note. Offered Tamiflu Offered monoclonal antibody Medical Decision Making Medical Decision Making [facility] Narrative: Patient is a 42-year-old female, presenting for evaluation of upper respiratory symptoms in addition to back pain.? COVID-19 testing negative.? strep testing negative.? At this time history and physical exam not consistent with ACS/PE/pneumonia.? not consistent with peritonsillar retropharyngeal abscess. Examination concerning for left acute otitis media, for which she will be given a prescription for antibiotic. Overall she is Well-appearing, nontoxic, afebrile, no tachycardia or tachypnea/hypoxia.? Speaking clear full sentences, ambulatory with steady gait.? Discussed conservative treatment including rest, hydration, Tylenol/ibuprofen as needed for fever and body aches, saline nasal spray, humidifier, [id number] cold medication.? her back pain appears most consistent with lumbar radiculopathy, no CVA tenderness lower suspicion for pyelonephritis /urinary tract infection without any genitourinary symptoms. Examination not consistent with cauda equina syndrome. Considered CT/ MRI imaging of the lumbar spine for further evaluation, however deferred at this time based on physical exam. Advised to follow-up with primary care provider as needed, discussed reasons to return back to the emergency department.? All questions were answered.? Patient discharged home in stable condition.? Provided with a return to work/school note. Differential Diagnosis Differential Diagnoses: The differential diagnosis associated with the presentation includes ( as noted above) Lab Data [facility] Lab Attestation statement: I reviewed the patient's lab results. ( as noted above) Labs: Lab Results 04/28/23 04/28/23 Range/Units 08:41 08:41 COVID-19 (NELLY) Negative (Negative) COVID-19 Clin Com See Note S. pyogenes GrpA LIANET Negative (Negative) External Record Review External record reviewed: Outpatient record Tests considered The following testing was considered but not selected: considered CT/MRI imaging of the lumbar spine as noted above Prescription Management I considered prescription management with: Antibiotic Discharge Plan Discharge Clinical Impression: Acute otitis media, Acute lumbar radiculopathy Patient Disposition: Home, Self-Care Instructions: Ear Infection (ED), Lumbar Radiculopathy (ED), Lower Back Exercises (ED) Additional Instructions: you have been given a prescription for antibiotic to treat your ear infection. Please do not insert anything into the ear such as Q-tips as this may increase the risk of rupturing your ear drum. Avoid submerging your head under water or swimming until your symptoms have resolved. In addition regarding her back pain, You can take ibuprofen 200 mg, 3 tablets (600mg) every 6-8 hours as needed for pain, in addition to Tylenol 500 mg, 2 tablets (1,000mg) every 4-6 hours as needed for pain, but not to exceed 3 doses daily (3,000mg).? follow-up with your primary care provider as needed. Prescriptions: New amoxicillin-pot clavulanate 875-125 mg tablet 1 tab PO Q12H Qty: 14 0RF ibuprofen 600 mg tablet 600 mg PO Q8H PRN (Reason: pain) Qty: 30 0RF No Action levothyroxine 100 mcg tablet 100 mcg PO DAILY 30 Days Qty: 90 1RF propranolol 10 mg tablet 10 mg PO BID Qty: 180 1RF sennosides 8.6 mg tablet 8.6 - 17.2 mg PO DAILY 30 Days Qty: 180 3RF ibuprofen 600 mg tablet 600 mg PO Q8H PRN (Reason: fever or pain) Qty: 20 0RF cholecalciferol (vitamin D3) 25 mcg (1,000 unit) capsule 25 mcg PO DAILY Probiotic 10 billion cell capsule PO DAILY cetirizine [Zyrtec] 10 mg tablet 10 mg PO DAILY PRN (Reason: allergy symptoms) Qty: 90 2RF dexlansoprazole [Dexilant] 60 mg capsule,biphase delayed releas 60 mg PO BEDTIME Qty: 90 3RF Referrals: Po,Susan Fernandez MD [Primary Care Provider] - Stand Alone Forms: Work/School Release
== END 2023-04-28 10:42 | disposition home or self-care (01) ==
PROVIDERS: Emergency Provider Student in an Organized Health Care Education/Training Program; PCP Internal Medicine
DX: H66.92 Otitis media, unspecified, left ear (principal); M54.16 Radiculopathy, lumbar region; J02.9 Acute pharyngitis, unspecified; Z20.822 Contact with and (suspected) exposure to COVID-19; Z87.891 Personal history of nicotine dependence; Z79.899 Other long term (current) drug therapy
CPT/HCPCS: 71045; 87635; 87651; 99283

== ENCOUNTER 2023-06-13 13:48 | Outpatient (REF) | payer OTHER, SELFPAY ==
[2023-06-15 23:09] LABS: TS Negative Control Passed; TS Panel A 0; TS Panel B 0; TS Positive Control Passed; TSpotTB Negative (Negative)
== END 2023-06-13 13:49 | disposition home or self-care (01) ==
LOC: HO.LAB 13:48
PROVIDERS: PCP Internal Medicine; Visit Provider Internal Medicine
DX: Z00.00 Encounter for general adult medical examination without abnormal findings (principal); Z11.1 Encounter for screening for respiratory tuberculosis
CPT/HCPCS: 36415; 86481

== ENCOUNTER 2023-06-20 10:10 | Outpatient (REF) | payer OTHER, SELFPAY | END 2023-06-20 10:11 | disposition home or self-care (01) | LOC: HO.MAMMO 10:10 | PROVIDERS: PCP Internal Medicine; Visit Provider Internal Medicine | DX: Z12.31 Encounter for screening mammogram for malignant neoplasm of breast (principal) | CPT/HCPCS: 77063; 77067 ==

== ENCOUNTER → 2023-06-20 10:15 | Outpatient (BNV) | payer OTHER, SELFPAY | PROVIDERS: PCP Internal Medicine; Visit Provider Radiology Diagnostic Radiology | DX: Z12.31 Encounter for screening mammogram for malignant neoplasm of breast (principal) | CPT/HCPCS: 77063; 77067 ==

== ENCOUNTER 2023-06-25 17:53 | Emergency (ER) | payer OTHER, SELFPAY ==
[2023-06-25 18:49] VITALS: BP 117/73; PULSE 62; RESP 18; TEMP 37.2; O2SAT 100; BMI 28.3
--- NOTE | 2023-06-25 18:52 | ED_ITS ---
HPI - Ear Problem General Chief complaint: Ear Problems Stated complaint: right ear and neck pain Time Seen by Provider: 06/25/23 18:52 Source: patient Mode of arrival: ambulatory Limitations: no limitations History of Present Illness HPI Narrative: 42 yo female presents to the ER for evaluation of worsening right ear pain for the last week. She states the pain is throbbing and now radiates into the neck and face. She denies any hearing loss, dizziness, tinnitus or drainage. She denies any trauma or injury. No tooth pain or jaw pain. MD Complaint: ear pain Location: right ear Duration: constant Severity: moderate Relieving factors: NDAIDs Exacerbating factors: chewing, position of head and palpation Discharge from ear: no Associated symptoms ear: external ear tenderness Treatment prior to arrival: none Related Data Home Medications Medication Instructions Recorded Confirmed Lactobacillus acidophilus 10 PO DAILY 08/02/20 02/13/23 billion cell capsule cholecalciferol (vitamin D3) 25 25 mcg PO DAILY 08/23/20 02/13/23 mcg (1,000 unit) capsule Previous Rx's Medication Instructions Recorded dexlansoprazole 60 mg 60 mg PO BEDTIME #90 caps 11/24/22 capsule,biphase delayed release (Dexilant) levothyroxine 100 mcg tablet 100 mcg PO DAILY 30 days #90 tabs 01/29/23 ibuprofen 600 mg tablet 600 mg PO Q8H PRN fever or pain 01/31/23 #20 tabs cetirizine 10 mg tablet (Zyrtec) 10 mg PO DAILY PRN allergy 02/13/23 symptoms #90 tabs propranolol 10 mg tablet 10 mg PO BID #180 tabs 03/20/23 sennosides 8.6 mg tablet 8.6 - 17.2 mg (1 - 2 x 8.6 mg) PO 04/24/23 DAILY 30 days #180 tabs amoxicillin 875 mg-potassium 1 tab PO Q12H #14 tabs 04/28/23 clavulanate 125 mg tablet ibuprofen 600 mg tablet 600 mg PO Q8H PRN pain #30 tabs 04/28/23 doxycycline hyclate 100 mg tablet 100 mg PO BID #14 tabs 06/25/23 Allergies Allergy/AdvReac Type Severity Reaction Status Date / Time pomegranate Allergy Severe ANAPHYLAXIS Verified 04/28/23 08:36 opiates Allergy Intermediate panic Verified 04/28/23 08:36 attacks penicillin V Allergy Intermediate severe Verified 04/28/23 08:36 yeast infections Penicillins Allergy Mild RASH Verified 04/28/23 08:36 Opioids - Morphine Analogues AdvReac Severe DYSPHORIA Verified 04/28/23 08:36 [OPIOIDS-MORPHINE & RELATED] AND PANIC ATTACKS Review of Systems Review of Systems: Yes all other systems are reviewed and are negative [facility] Past Medical History Medical History Anxiety and depression Endometrial thickening on ultrasound GERD (gastroesophageal reflux disease) Shreya's disease Herpes genitalis Hypothyroidism Low back pain Lump on face Maxillary sinusitis Migraine Nasal congestion Nausea Non-toxic multinodular goiter Swelling of left foot Urethral diverticulum Surgical History History of esophagogastroduodenoscopy (EGD) Hx of bilateral salpingectomy Hx of cholecystectomy Hx of hiatal hernia Family History Family History Father No problems noted. Mother Diabetes mellitus HTN (hypertension) Maternal Uncle Pancreatic cancer Alcohol abuse Maternal Grandfather Diabetes mellitus Maternal Aunt Breast cancer Brother Substance abuse Other Mental health disorder Social History Social History Housing: House Alcohol intake: never Patient Tobacco Use Status: Former Tobacco user Tobacco use type: Cigarette Years Smoked: quit 2009 e-Cigarette/Vaping Use: Never Used Second Hand Smoke Exposure: No Advance Directives: No Advance Directives Information Provided: Yes service: No Current occupational status: employed Cognitive needs: No Hearing needs: No Vision needs: No Physical Exam Vital Signs: Vital Signs: Last Vital Signs Temp 98.9 F 06/25/23 18:49 Pulse 62 06/25/23 18:49 Resp 18 06/25/23 18:49 BP 117/73 06/25/23 18:49 Pulse Ox 100 06/25/23 18:49 O2 Del Method Room Air 06/25/23 18:49 BMI result Body Mass Index 28.3 Appearance: Alert. Oriented X3. No acute distress. Head: normocephalic, atraumatic. Eyes: Pupils equal, round and reactive to light. ENT: Pharynx normal. No tonsillar swelling or exudate. Left EAC and TM are normal. Right EAC is normal. Right TM is erythematous w/ loss of landmarks. Neck: Normal inspection. Neck supple. No mastoid tenderness or erythema CVS: Normal heart rate and rhythm. Pulses normal. Respiratory: No respiratory distress. Breath sounds normal. Skin: Skin warm and dry. Normal skin color. Normal skin turgor. No rashes. Extremities: No lower extremity edema. No joint swelling. Neuro/psych: Oriented X 3. nonfocal. CN II-XII intact. Normal speech and cognition. Medical Decision Making Medical Decision Making MDM Narrative: 42 yo female presenting with right ear pain radiating to the neck and and face. no hearing loss or drainage. exam c/w AOM will treat with PO abx. no abnormalities of EAC and no mastoid tenderness. stable for d/c home Differential Diagnosis Differential Diagnoses: The differential diagnosis associated with the presentation includes acute otitis media, otitis externa, dental pain, perforated TM, mastoditis External Record Review External record reviewed: Prior outpatient labs Prescription Management I considered prescription management with: Pain Medication and Antibiotic Critical Care Time Critical Care Time Critical Care Time: No Discharge Plan Discharge Clinical Impression: Otitis media Patient Disposition: Home, Self-Care Instructions: Ear Infection (ED) Additional Instructions: Take the prescribed antibiotics as directed, complete the entire course and do not miss any doses Continue ibuprofen and/or tylenol as needed for pain If you develop new or worsening symptoms call 911 or come back to the ER for further evaluation. Prescriptions: New doxycycline hyclate 100 mg tablet 100 mg PO BID Qty: 14 0RF No Action levothyroxine 100 mcg tablet 100 mcg PO DAILY 30 Days Qty: 90 1RF propranolol 10 mg tablet 10 mg PO BID Qty: 180 1RF sennosides 8.6 mg tablet 8.6 - 17.2 mg PO DAILY 30 Days Qty: 180 3RF amoxicillin-pot clavulanate 875-125 mg tablet 1 tab PO Q12H Qty: 14 0RF ibuprofen 600 mg tablet 600 mg PO Q8H PRN (Reason: pain) Qty: 30 0RF ibuprofen 600 mg tablet 600 mg PO Q8H PRN (Reason: fever or pain) Qty: 20 0RF cholecalciferol (vitamin D3) 25 mcg (1,000 unit) capsule 25 mcg PO DAILY Probiotic 10 billion cell capsule PO DAILY cetirizine [Zyrtec] 10 mg tablet 10 mg PO DAILY PRN (Reason: allergy symptoms) Qty: 90 2RF dexlansoprazole [Dexilant] 60 mg capsule,biphase delayed releas 60 mg PO BEDTIME Qty: 90 3RF Referrals: Po,Susan Fernandez MD [Primary Care Provider] - Interventions: ED Discharge Assessment Last Done: 06/25/23 19:23 Discharge Date/Time: 06/25/23 19:23
== END 2023-06-25 19:23 | disposition home or self-care (01) ==
PROVIDERS: Emergency Provider Emergency Medicine; PCP Internal Medicine
DX: H66.91 Otitis media, unspecified, right ear (principal); M54.2 Cervicalgia; Z79.899 Other long term (current) drug therapy
CPT/HCPCS: 99282; 99283

== ENCOUNTER 2023-09-24 10:02 | Outpatient (AMB) | payer OTHER, SELFPAY ==
[2023-09-24 10:11] VITALS: BP 109/72; PULSE 63; BMI 29.1
--- NOTE | 2023-09-24 10:11 | MHC.OFFVIS ---
Intake Vital Signs 09/24/23 10:11 Height 5 ft 4 in Weight 169 lb 5.04 oz BMI 29.1 BP 109/72 Blood Pressure Location Lt brachial Position Sitting Pulse 63 Intake Visit Reasons: re discuss colo Intake Note: Patient presents to in office visit today in follow up to rediscuss colonoscopy. CC:Patient reports she takes Senna PRN for constipation and this helps her. Denies having any GI symptoms today. 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 Continue avoiding dietary triggers late night snacking. Staying upright for minimum 3 hours after meals discussed with patient. Chronic idiopathic constipation Patient can take Senokot. However discussed with patient that she can also take magnesium at bedtime that will help her relax as well as help her move her bowels. Patient states that she tries to take probiotic as well to help her with her bowels and feels like it is helping. I will see patient in September. She will be due to go for colorectal screening. I will see patient sooner if she will have any GI concerning symptoms. Patient is agreeable to this plan and verbalizes understanding of instructions. She was given the opportunity to ask questions all questions answered. ? Thank you for allowing me to participate in her care Plan Medications Refilled dexlansoprazole (Dexilant) 60 mg PO BEDTIME 90 caps 3RF sennosides 8.6 - 17.2 mg (1 - 2 x 8.6 mg) PO DAILY 30 days 180 tabs 3RF TODAY'S VISIT: Patient is here today for follow-up and to discuss going for colonoscopy. Patient reports that excellent has been working for her and acid reflux symptoms are under control. Patient denies any dyspepsia, dysphagia or odynophagia. Occasional symptoms only depending on what she eats. Patient changed her diet. Reports that she is moving her bowels better now. Patient is drinking plenty fluids. Only takes senna on as needed basis. Patient is trying to eat lots of vegetables and fruits to help her move her bowels better. Patient denies melena, hematochezia, unintentional weight loss or ribbon like stools. Patient denies any issues with anesthesia in the past. No history of sleep apnea. Not on any anticoagulation medication. Patient denies any cardiac or respiratory symptoms. [facility] Medical History Maxillary sinusitis Swelling of left foot Nasal congestion Nausea Low back pain Endometrial thickening on ultrasound Urethral diverticulum Herpes genitalis Anxiety and depression Migraine GERD (gastroesophageal reflux disease) Non-toxic multinodular goiter Shreya's disease Hypothyroidism Lump on face Surgical History Hx of hiatal hernia History of esophagogastroduodenoscopy (EGD) Hx of bilateral salpingectomy Hx of cholecystectomy Family History Father No problems noted. Mother Diabetes mellitus HTN (hypertension) Maternal Uncle Pancreatic cancer Alcohol abuse Maternal Grandfather Diabetes mellitus Maternal Aunt Breast cancer Brother Substance abuse Other Mental health disorder Social History Housing: House Alcohol intake: never Patient Tobacco Use Status: Former Tobacco user Tobacco use type: Cigarette Years Smoked: quit 2009 e-Cigarette/Vaping Use: Never Used Second Hand Smoke Exposure: No service: No Current occupational status: employed Cognitive needs: No Hearing needs: No Vision needs: No Review of Systems Const Denies weight gain and Denies weight loss ENT Reports no additional complaints, Denies dysphagia and Denies odynophagia Card Reports no additional complaints Resp Reports no additional complaints GI Denies abdominal pain, Denies belching, Denies melena, Denies bloating, Denies change in bowel habits, Reports constipation (Occasional), Denies dysphagia, Denies excessive flatus, Denies dyspepsia, Reports heartburn (Occasional), Denies diarrhea, Denies loose stools, Denies nausea, Denies odynophagia and Denies vomiting Reports no additional complaints Musc Reports no additional complaints Neuro Reports no additional complaints Psych Reports no additional complaints Endo Reports no additional complaints Physical Exam Vital Signs: Last Vital Signs Pulse 63 09/24/23 10:11 BP 109/72 09/24/23 10:11 BMI result Body Mass Index 29.1 Const General: healthy appearing, no acute distress and well developed Nutritional Appearance: well nourished Orientation/consciousness: patient oriented x3 HEENT Head: Yes normal to inspection, Yes normocephalic and Yes atraumatic Face and sinus: Yes normal facial exam Mouth: Normal oral and palatal mucosa present Throat: Yes posterior oropharynx normal, Yes tonsils normal and Yes uvula midline Eyes General: appearance normal, both eyes and all related structures Neck Neck: Yes normal visual inspection, Yes full ROM and Yes trachea midline Thyroid: Thyroid normal Resp Effort & Inspection: normal respiratory effort, able to speak in complete sentences, no tracheal deviation and symmetric chest movement Auscultation: clear to auscultation bilaterally Cardio Rate: regular rate GI Inspection: Yes normal to inspection and No distended Palpation (GI): Soft to palpation, not firm, nontender and No hepatosplenomegaly present Auscultation: normal bowel sounds General: Yes no CVA tenderness Back/Spine/Pelvis Back: no CVA tenderness Skin General skin exam: elasticity normal, turgor normal and dry skin Neuro General: patient oriented x3 Psych Appearance: grossly normal Mental Status: mental status grossly normal Affect: normal affect Assessment & Plan Assessment & Plan (1) GERD (gastroesophageal reflux disease): Code(s): K21.9 - Gastro-esophageal reflux disease without esophagitis Qualifiers: Esophagitis presence: without esophagitis Qualified Code(s): K21.9 - Gastro-esophageal reflux disease without esophagitis (2) Chronic idiopathic constipation: Code(s): K59.04 - Chronic idiopathic constipation (3) Screen for colon cancer: Code(s): Z12.11 - Encounter for screening for malignant neoplasm of colon Plan Continue Dexilant at bedtime. Patient was encouraged to avoid dietary triggers and late night snacking. Staying upright for minimum 3 hours after meals discussed with patient. Patient will be sent for upper endoscopy to rule out esophagitis, gastritis, duodenitis, gastric or peptic ulcers, H pylori. Patient was encouraged to increase fluid intake and activity to promote better bowel motility. She may take senna on as needed basis. Encouraged to take senna for 1 week before the procedure to make sure that she empties her bowels completely before the procedure. With expect before during and after the procedure discussed with patient. Stressed with patient the importance of good bowel prep and clear liquid diet day before the procedure. Patient denies any cardiac or respiratory symptoms. No history of sleep apnea. Not on any anticoagulation medication. I will see her after the procedure, sooner on as needed basis. Patient is agreeable to this plan and verbalizes understanding of instructions. She was given the opportunity to ask questions and all questions answered. Thank you for allowing me to participate in her care Medications: New bisacodyl (Dulcolax (bisacodyl)) take 4 tabs at noon the day before your colonoscopy 20 mg (4 x 5 mg) PO ONCE 1 day 4 tabs 0RF Z12.11 - Encounter for screening for malignant neoplasm of colon polyethylene glycol 3350 (Miralax) As directed by gastroenterology department at [facility] 238 grams PO ONCE 238 grams 0RF Z12.11 - Encounter for screening for malignant neoplasm of colon Coding Level of Care Code Est Pt Level 3 (70578) Diagnoses Gastroesophageal reflux disease without esophagitis K21.9 Esophagitis presence: without esophagitis Chronic idiopathic constipation K59.04 Screen for colon cancer Z12.11 Time Spent (min) 30 Comment 20 minutes spent with patient and additional 10 minutes spent reviewing her records
== END 2023-09-24 11:11 | disposition home or self-care (01) ==
PROVIDERS: PCP Internal Medicine; Visit Provider Nurse Practitioner Family
DX: K21.9 Gastro-esophageal reflux disease without esophagitis (principal); K59.04 Chronic idiopathic constipation; Z12.11 Encounter for screening for malignant neoplasm of colon
CPT/HCPCS: 99213

== ENCOUNTER → 2023-09-24 10:02 | Outpatient (BNVA) | payer OTHER, SELFPAY | PROVIDERS: PCP Internal Medicine; Visit Provider Nurse Practitioner Family | DX: Z12.11 Encounter for screening for malignant neoplasm of colon (principal); K59.04 Chronic idiopathic constipation; K21.9 Gastro-esophageal reflux disease without esophagitis | CPT/HCPCS: 99212 ==

== ENCOUNTER 2023-10-29 10:14 | Outpatient (AMB) | payer OTHER, SELFPAY ==
--- NOTE | 2023-10-29 10:18 | A.OFFPC_ITS ---
Vital Signs 10/29/23 10:22 Height 5 ft 4 in Weight 166 lb 6 oz BMI 28.6 BP 90/62 Blood Pressure Location Lt brachial Position Sitting Pulse 67 Pulse Source Pulse Oximeter Pulse Oximetry (%) 99 Oxygen Delivery Method Room Air Intake Visit Reasons: blurred visiion Intake Note: Patient is here today for blurred vision with dizziness, ongoing for two weeks. 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 by: Self / Same As Patient Allergies pomegranate Allergy (Severe, Verified 10/29/23 10:21) ANAPHYLAXIS opiates Allergy (Intermediate, Verified 10/29/23 10:21) panic attacks penicillin V Allergy (Intermediate, Verified 10/29/23 10:21) severe yeast infections Penicillins Allergy (Mild, Verified 10/29/23 10:21) RASH Opioids - Morphine Analogues [OPIOIDS-MORPHINE & RELATED] Adverse Reaction (Severe, Verified 10/29/23 10:21) DYSPHORIA AND PANIC ATTACKS Tobacco use date assessed: 10/29/23 Dental Screening Dental Screen Date: 10/29/23 Did you have a dental visit in the last 12 months?: Yes Did you have a dental problem in the last 6 months where you did not have access to dental care?: No Was dental information given to patient?: Patient has dentist HPI blurred visiion HPI Details 43-year-old female presents to the [facility] for a sick visit. For the past week patient is complaining of dizzy spells, spacing out and feeling tired. Symptoms started suddenly. She has had the spells wants while driving. Symptoms happen mostly in the morning. No nausea or vomiting. Able to function and do activities of daily living [facility] Medical History Maxillary sinusitis Swelling of left foot Nasal congestion Nausea Low back pain Endometrial thickening on ultrasound Urethral diverticulum Herpes genitalis Anxiety and depression Migraine GERD (gastroesophageal reflux disease) Non-toxic multinodular goiter Shreya's disease Hypothyroidism Lump on face Surgical History Hx of hiatal hernia History of esophagogastroduodenoscopy (EGD) Hx of bilateral salpingectomy Hx of cholecystectomy Family History Father No problems noted. Mother Diabetes mellitus HTN (hypertension) Maternal Uncle Pancreatic cancer Alcohol abuse Maternal Grandfather Diabetes mellitus Maternal Aunt Breast cancer Brother Substance abuse Other Mental health disorder Social History Housing: House Alcohol intake: never Patient Tobacco Use Status: Former Tobacco user Tobacco use type: Cigarette Years Smoked: quit 2009 e-Cigarette/Vaping Use: Never Used Second Hand Smoke Exposure: No service: No Current occupational status: employed Cognitive needs: No Hearing needs: No Vision needs: No Questionnaire PHQ-9 Over the last 2 weeks, how often have you been bothered by any of the following problems? 1. Little interest or pleasure in doing things: several days 2. Feeling down, depressed, or hopeless: several days 3. Trouble falling or staying asleep, or sleeping too much: not at all 4. Feeling tired or having little energy: several days 5. Poor appetite or overeating: several days 6. Feeling bad about yourself - or that you are a failure or have let yourself or your family down: not at all 7. Trouble concentrating on things, such as reading the newspaper or watching television: several days 8. Moving or speaking so slowly that other people could have noticed. Or the opposite - being so fidgety or restless that you have been moving around a lot more than usual: several days 9. Thoughts that you would be better off or of hurting yourself in some way: not at all Total score: 6 Source: Developed by Drs. John Rojas, Miriam Wu, Aayush Del Cid and colleagues, with an educational adelia from [employer]. Thrive Questionnaire Date Thrive assessed: 10/29/23 I am a: Patient What is your living situation today?: I have a steady place to live Within the past 12 months, did the food you bought not last and you didn't have the money to get more?: Never true Within the past 12 months, did you worry whether your food would run out before you got money to buy more?: Never true Do you have trouble paying for medicines?: No Do you have trouble getting transportation to medical appointments?: No Do you have trouble taking care of your child, family member or friend?: No Do you have trouble with day-to-day activities such as bathing, preparing meals, shopping, managing finances, etc.?: No Are you currently unemployed and looking for a job?: No Are you interested in more education?: No AUDIT C Alcohol Use Questionnaire (AUDIT-C) 1. How often do you have a drink containing alcohol?: Never Total Score: 0 MELISSA-7 AMB Questionnaire MELISSA-7 Date MELISSA - 7 assessed: 10/29/23 Feeling nervous, anxious, or on edge: 1 = Several days Not being able to stop or control worryin = Several days Worrying too much about different things: 1 = Several days Trouble relaxin = Several days Being so restless that it is hard to sit still: 0 = Not at all Becoming easily annoyed or irritable: 1 = Several days Feeling afraid as if something awful might happen: 1 = Several days Total MELISSA-7 score (0-4 normal; 5-9 mild; 10-14 moderate; 15-21 severe): 6 Source: Developed by Drs. John Rojas, Miriam Wu, Aayush Del Cid and colleagues, with an educational adelia from [employer]. Physical exam (Primary Care) Vital Signs: Last Vital Signs Pulse 67 10/29/23 10:22 BP 90/62 10/29/23 10:22 Pulse Ox 99 10/29/23 10:22 Oxygen Delivery Method Room Air 10/29/23 10:22 BMI result Body Mass Index 28.6 Tobacco/Smoking Status: Tobacco use Status Tobacco use date assessed 10/29/23 10/29/23 10:31 Patient Tobacco Use Status Former Tobacco user 10/29/23 10:31 Tobacco use type Cigarette 10/29/23 10:31 e-Cigarette/Vaping Use Never Used 10/29/23 10:31 PHQ-9: PHQ-9 Score PHQ-9: Total score 6 10/29/23 10:31 Thrive Assessment: Date of Thrive Assessment Date Thrive assessed 10/29/23 10/29/23 10:31 Const General: cooperative and healthy appearing Nutritional Appearance: well nourished Orientation/consciousness: patient oriented x3 Limitations: no limitations HENMT Head: Yes normal to inspection Eyes General: appearance normal, both eyes and all related structures Neck Neck: Yes normal visual inspection Chest Chest palpation & inspection: normal palpation of entire chest wall Resp Effort & Inspection: normal respiratory effort Neuro General: patient oriented x3 Assessment and Plan Assessment & Plan (1) Dizziness: Code(s): R42 - Dizziness and giddiness Plan: A CT of the head has been ordered. If symptoms continue to persist, despite negative CT, a a neurology consult for EEG should be considered. Blood work has been ordered. Orders: Orders CT hand LT wo/w IV con Today H53.8 - Other visual disturbances Liver Panel Today R42 - Dizziness and giddiness Thyroid Stimulating Hormone Today R42 - Dizziness and giddiness Basic Metabolic Panel Today R42 - Dizziness and giddiness Lipid Panel Today R42 - Dizziness and giddiness Complete Blood Count no Diff Today R42 - Dizziness and giddiness Coding Level of Care Code Est Pt Level 4 (14445) Diagnoses Dizziness R42
[2023-10-29 10:22] VITALS: BP 90/62; PULSE 67; O2SAT 99; BMI 28.6
== END 2023-10-29 11:29 | disposition home or self-care (01) ==
PROVIDERS: PCP Internal Medicine; Visit Provider Internal Medicine
DX: R42 Dizziness and giddiness (principal)
CPT/HCPCS: 99214

== ENCOUNTER 2023-11-07 06:27 | Outpatient (REF) | payer OTHER, SELFPAY ==
[2023-11-07 07:55] LABS: Hemoglobin 13.9 g/dl (12.0-16.0); Mean Corpuscular HGB Conc 35.6 g/dl (31.0-35.0); Mean Corpuscular Hemoglobin 32.8 pg (27.0-33.0); Mean Platelet Volume 9.9 fL (9.4-12.3); Platelet Count 233 X10*3/uL (160-400); Red Blood Count 4.24 X10*6/uL (4.20-5.50); Red Cell Distribution Width 13.2 % (11.0-16.0); White Blood Count 7.3 X10*3/uL (4.8-10.8)
[2023-11-07 08:34] LABS: Alanine Aminotransferase 15 U/L (0-31); Albumin Level 4.1 g/dL (3.5-5.0); Alkaline Phosphatase 48 U/L (39-117); Anion Gap 12 (12-20); Aspartate Amino Transferase 21 U/L (5-31); Bilirubin Direct 0.2 mg/dL (0.0-0.5); Bilirubin Total 0.6 mg/dL (0.0-1.0); Blood Urea Nitrogen 9 mg/dL (9-16); Calcium 9.1 mg/dL (8.4-10.2); Carbon Dioxide 25 mmol/L (22-29); Chloride 106 mmol/L (96-108); Cholesterol 185 mg/dL (<200); Estimated Glomerular Filt Rate > 60; Glucose Random 89 mg/dL (60-115); HDL Cholesterol 68 mg/dL (>40); LDL Cholesterol Calculated 104 mg/dL (<100); Potassium 4.1 mmol/L (3.3-5.1); Sodium 139 mmol/L (135-145); Total Protein 6.6 g/dL (6.5-8.0); Triglycerides 68 mg/dL (<150)
[2023-11-07 08:49] LABS: Thyroid Stimulating Hormone 3.84 uIU/mL (0.32-4.0)
== END 2023-11-07 06:28 | disposition home or self-care (01) ==
LOC: HO.LAB 06:27
PROVIDERS: PCP Internal Medicine; Visit Provider Internal Medicine
DX: R42 Dizziness and giddiness (principal)
CPT/HCPCS: 36415; 80048; 80061; 80076; 84443; 85027

== ENCOUNTER 2023-11-19 07:27 | Outpatient (REF) | payer OTHER, SELFPAY ==
--- NOTE | ~2023-11-19 | CT_ITS ---
EXAMINATION: CT HEAD WITHOUT CONTRAST CLINICAL INFORMATION: Dizziness. COMPARISON: Head CT dated 01/17/2018. TECHNIQUE: Contiguous axial imaging was performed from the skullbase to vertex without intravenous administration of contrast. This CT examination was performed using dose optimization techniques as appropriate, variously including the following: *Automated exposure control *Adjustment of mA and/or kV according to patient size (this includes techniques or standardized protocols for targeted exams where dose is matched to indication/reason for exam; i.e. extremities or head) *Use of iterative reconstruction technique DLP: 883 mGy-cm. FINDINGS: There is no evidence of acute intracranial hemorrhage or territorial infarction. No abnormal mass effect or midline shift is seen. Mejia to white matter differentiation is well preserved. No extra-axial fluid collections are identified. The ventricles are normal in size. There is no abnormal attenuation within the brain parenchyma. The osseous structures and soft tissues are normal. The mastoid air cells and visualized portions of the paranasal sinuses are well aerated. CT/CT head/brain wo IV con IMPRESSION: No acute intracranial pathology.
== END 2023-11-19 07:28 | disposition home or self-care (01) ==
LOC: HO.CT 07:27
PROVIDERS: Visit Provider Internal Medicine
DX: R42 Dizziness and giddiness (principal)
CPT/HCPCS: 70450

== ENCOUNTER 2024-01-02 03:47 | Emergency (ER) | payer OTHER, SELFPAY ==
[2024-01-02 03:48] VITALS: BP 110/79; PULSE 73; RESP 18; TEMP 36.8; O2SAT 97; BMI 28.3
[2024-01-02 04:02] LABS: Basophils Percent Auto 0.5 % (0-2); Eosinophils Absolute Auto 0.2 X10*3/uL (0.0-0.4); Eosinophils Percent Auto 2.6 % (0-4); Hemoglobin 13.6 g/dl (12.0-16.0); Imm Gran Abs Auto 0.02 X10*3/uL (0.00-0.03); Imm Gran Pct Auto 0.3 % (0.0-0.4); Lymphocytes Absolute Auto 1.6 X10*3/uL (1.2-4.9); MANUAL DIFF FLAG NO; Mean Corpuscular HGB Conc 35.8 g/dl (31.0-35.0); Mean Corpuscular Volume 89.4 fL (80.0-98.0); Mean Platelet Volume 10.1 fL (9.4-12.3); Monocytes Absolute Auto 0.5 X10*3/uL (0.1-1.2); Monocytes Percent Auto 7.8 % (2-11); Neutrophils Absolute Auto 3.9 x10*3/uL (2.0-8.3); Neutrophils Percent Auto 62.8 % (45-73); Platelet Count 220 X10*3/uL (160-400); Red Blood Count 4.25 X10*6/uL (4.20-5.50); Red Cell Distribution Width 13.2 % (11.0-16.0); White Blood Count 6.3 X10*3/uL (4.8-10.8)
[2024-01-02 04:17] LABS: Alanine Aminotransferase 16 U/L (0-31); Albumin Level 4.1 g/dL (3.5-5.0); Alkaline Phosphatase 57 U/L (39-117); Anion Gap 11 (12-20); Aspartate Amino Transferase 21 U/L (5-31); Bilirubin Direct 0.2 mg/dL (0.0-0.5); Bilirubin Total 0.4 mg/dL (0.0-1.0); Blood Urea Nitrogen 10 mg/dL (9-16); Calcium 8.2 mg/dL (8.4-10.2); Carbon Dioxide 24 mmol/L (22-29); Chloride 111 mmol/L (96-108); Creatinine Clr Calc Pharmacy 91.4; Estimated Glomerular Filt Rate > 60; Glucose Random 108 mg/dL (60-115); Lipase 36 U/L (8-78); Potassium 3.5 mmol/L (3.3-5.1); Sodium 142 mmol/L (135-145); Total Protein 6.5 g/dL (6.5-8.0)
[2024-01-02 04:40] LABS: Influenza A PCR NEGATIVE (Negative); Influenza B PCR NEGATIVE (Negative); Resp Syncy Virus RNA Qual PCR NEGATIVE (Negative); SARS COV2 PCR INHOUSE NEGATIVE (Negative)
== END 2024-01-02 05:55 | disposition left against medical advice (07) ==
PROVIDERS: Emergency Provider Emergency Medicine
DX: R10.9 Unspecified abdominal pain (principal); R11.2 Nausea with vomiting, unspecified; Z11.52 Encounter for screening for COVID-19; Z20.828 Contact with and (suspected) exposure to other viral communicable diseases
CPT/HCPCS: 0241U; 80053; 82248; 83690; 85025; 99281; 99283

== ENCOUNTER 2024-01-03 11:41 | Outpatient (AMB) | payer OTHER, SELFPAY ==
[2024-01-03 11:42] VITALS: BP 92/64; PULSE 60; O2SAT 100; BMI 28.7
--- NOTE | 2024-01-03 11:42 | MHC.PC.OV ---
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 Allergies pomegranate Allergy (Severe, Verified 01/03/24 11:46) ANAPHYLAXIS opiates Allergy (Intermediate, Verified 01/03/24 11:46) panic attacks penicillin V Allergy (Intermediate, Verified 01/03/24 11:46) severe yeast infections Penicillins Allergy (Mild, Verified 01/03/24 11:46) RASH Opioids - Morphine Analogues [OPIOIDS-MORPHINE & RELATED] Adverse Reaction (Severe, Verified 01/03/24 11:46) DYSPHORIA AND PANIC ATTACKS Medication List - Last Reconciled 01/03/24 by Susan You MD bisacodyl (Dulcolax (bisacodyl)) 20 mg (4 x 5 mg) PO ONCE 1 day cetirizine (Zyrtec) 10 mg PO DAILY PRN cholecalciferol (vitamin D3) 25 mcg PO DAILY dexlansoprazole (Dexilant) 60 mg PO BEDTIME Lactobacillus acidophilus PO DAILY levothyroxine 100 mcg PO DAILY 30 days ondansetron 8 mg PO Q8H PRN polyethylene glycol 3350 (Miralax) 238 grams PO ONCE sennosides 8.6 - 17.2 mg (1 - 2 x 8.6 mg) PO DAILY 30 days trazodone 50 mg PO BEDTIME PRN Tobacco use date assessed: 01/03/24 Dental Screening Dental Screen Date: 01/03/24 HPI Nausea, throwing up, diarrhea HPI Details 43-year-old overweight female with a history of hypothyroidism GERD migraine generalized anxiety disorder coming in for follow-up. Recently R visit 01/02/2024 but left against medical advice after getting workup. Recently had a CT scan of the head also for dizziness November 2023 that was negative. 4 days ago diarrhea and vomiting epigastric pain, nofevers- watery- last meal sunday prior to the start was in the road race - - this prompted consult. Patient's last bowel movement was yesterday and is getting formed. Discussed about gastroenteritis and careful on diet. [facility] Medical History Maxillary sinusitis Swelling of left foot Nasal congestion Nausea Low back pain Endometrial thickening on ultrasound Urethral diverticulum Herpes genitalis Anxiety and depression Migraine GERD (gastroesophageal reflux disease) Non-toxic multinodular goiter Shreya's disease Hypothyroidism Lump on face Surgical History Hx of hiatal hernia History of esophagogastroduodenoscopy (EGD) Hx of bilateral salpingectomy Hx of cholecystectomy Family History Father No problems noted. Mother Diabetes mellitus HTN (hypertension) Maternal Uncle Pancreatic cancer Alcohol abuse Maternal Grandfather Diabetes mellitus Maternal Aunt Breast cancer Brother Substance abuse Other Mental health disorder Social History Housing: House Alcohol intake: never Patient Tobacco Use Status: Former Tobacco user Tobacco use type: Cigarette Years Smoked: quit 2009 e-Cigarette/Vaping Use: Never Used Second Hand Smoke Exposure: No service: No Current occupational status: employed Cognitive needs: No Hearing needs: No Vision needs: No Questionnaire Thrive Questionnaire Date Thrive assessed: 10/29/23 AUDIT C Alcohol Use Questionnaire (AUDIT-C) 1. How often do you have a drink containing alcohol?: Never Total Score: 0 MELISSA-7 AMB Questionnaire MELISSA-7 Date MELISSA - 7 assessed: 10/29/23 Source: Developed by Drs. John Rojas, Miriam Wu, Aayush Del Cid and colleagues, with an educational adelia from [employer]. Physical exam (Primary Care) Vital Signs: Last Vital Signs Pulse 60 01/03/24 11:42 BP 92/64 01/03/24 11:42 Pulse Ox 100 01/03/24 11:42 Oxygen Delivery Method Room Air 01/03/24 11:42 BMI result Body Mass Index 28.7 Tobacco/Smoking Status: Tobacco use Status Tobacco use date assessed 01/03/24 01/03/24 11:47 Patient Tobacco Use Status Former Tobacco user 01/03/24 11:47 Tobacco use type Cigarette 01/03/24 11:47 e-Cigarette/Vaping Use Never Used 01/03/24 11:47 Thrive Assessment: Date of Thrive Assessment Date Thrive assessed 10/29/23 01/03/24 11:47 Const Other: epigastric tender but no rebound and guarding General: alert; No acute distress Eyes Conjunctivae: conjunctivae normal Resp Auscultation: clear to auscultation bilaterally Cardio Rate: regular rate Rhythm: regular rhythm GI Inspection: Yes normal to inspection Extrem General: Yes normal to inspection and No edema Assessment and Plan Assessment & Plan (1) Acute gastroenteritis: Code(s): K52.9 - Noninfective gastroenteritis and colitis, unspecified Plan: discussed about avoiding dehydration- bland diet, increase oral fluids. (no signs of dehydration - CYNTHIA 2 hours ago and moist oral mucosa) Medications: New ondansetron 8 mg PO Q8H PRN 20 tabs 1RF nausea and vomiting K52.9 - Noninfective gastroenteritis and colitis, unspecified Coding Level of Care Code Est Pt Level 3 (34557) Diagnoses Acute gastroenteritis K52.9
== END 2024-01-03 13:25 | disposition home or self-care (01) ==
PROVIDERS: Visit Provider Internal Medicine
DX: K52.9 Noninfective gastroenteritis and colitis, unspecified (principal)
CPT/HCPCS: 99213

== ENCOUNTER 2024-01-17 09:29 | Day surgery (SDC) | payer OTHER, SELFPAY ==
--- NOTE | 2024-01-15 15:31 | HO.ANESPROP2 ---
Documented by User: Traci Sandra NP 01/15/24 15:32 HPI - Anesthesia Eval Consult details Narrative: 43yo F for Upper Endoscopy and Colonoscopy [facility] Active Problems Active Problems: All Active Problems (Updated 01/03/24 @ 12:01 by Susan You MD) Acute gastroenteritis (Acute) Sinusitis (Acute) Insomnia (Acute) Herpes zoster (Acute) Tinea pedis (Acute) Generalized anxiety disorder (Acute) Annual physical exam (Acute) COVID-19 virus infection (Acute) Iron deficiency anemia (Acute) Allergic rhinitis (Acute) Migraine (Acute) GERD (gastroesophageal reflux disease) (Acute) Non-toxic multinodular goiter (Acute) Shreya's disease (Acute) Hypothyroidism (Acute) Past Medical History Medical History Maxillary sinusitis Swelling of left foot Nasal congestion Nausea Low back pain Endometrial thickening on ultrasound Urethral diverticulum Herpes genitalis Anxiety and depression Migraine GERD (gastroesophageal reflux disease) Non-toxic multinodular goiter Shreya's disease Hypothyroidism Lump on face Family History Family History Father No problems noted. Mother Diabetes mellitus HTN (hypertension) Maternal Uncle Pancreatic cancer Alcohol abuse Maternal Grandfather Diabetes mellitus Maternal Aunt Breast cancer Brother Substance abuse Other Mental health disorder Surgical History Surgical History Hx of hiatal hernia History of esophagogastroduodenoscopy (EGD) Hx of bilateral salpingectomy Hx of cholecystectomy Social History Social History Housing: House Alcohol intake: never Patient Tobacco Use Status: Former Tobacco user Tobacco use type: Cigarette Years Smoked: quit 2009 e-Cigarette/Vaping Use: Never Used Second Hand Smoke Exposure: No Are you DNR?: No Advance Directives: No Advance Directives Information Provided: Yes Nutrition Risks: No Nutritional Risk service: No Current occupational status: employed Cognitive needs: No Hearing needs: No Vision needs: No Meds Allergies Allergy/AdvReac Type Severity Reaction Status Date / Time pomegranate Allergy Severe ANAPHYLAXIS Verified 01/17/24 10:20 opiates Allergy Intermediate panic Verified 01/17/24 10:20 attacks penicillin V Allergy Intermediate severe Verified 01/17/24 10:20 yeast infections Penicillins Allergy Mild RASH Verified 01/17/24 10:20 Opioids - Morphine Analogues AdvReac Severe DYSPHORIA Verified 01/17/24 10:20 [OPIOIDS-MORPHINE & RELATED] AND PANIC ATTACKS Home Medications ?Medication ?Instructions ?Recorded ?Confirmed ?Last Taken ?Type Lactobacillus acidophilus 10 PO DAILY 08/02/20 01/03/24 Unknown History billion cell capsule cholecalciferol (vitamin D3) 25 25 mcg PO DAILY 08/23/20 01/17/24 Unknown History mcg (1,000 unit) capsule Assessment and Plan Assessment Anesthesia Assessment: Chart Reviewed Documented by User: Jasbir Morrow MD 01/17/24 11:13 [facility] Past Medical History Medical History Maxillary sinusitis Swelling of left foot Nasal congestion Nausea Low back pain Endometrial thickening on ultrasound Urethral diverticulum Herpes genitalis Anxiety and depression Migraine GERD (gastroesophageal reflux disease) Non-toxic multinodular goiter Shreya's disease Hypothyroidism Lump on face Family History Family History Father No problems noted. Mother Diabetes mellitus HTN (hypertension) Maternal Uncle Pancreatic cancer Alcohol abuse Maternal Grandfather Diabetes mellitus Maternal Aunt Breast cancer Brother Substance abuse Other Mental health disorder Family history of problems with anesthesia: No Surgical History Surgical History Hx of hiatal hernia History of esophagogastroduodenoscopy (EGD) Hx of bilateral salpingectomy Hx of cholecystectomy History of Problems with Anesthesia: No Social History Social History Housing: House Alcohol intake: never Patient Tobacco Use Status: Former Tobacco user Tobacco use type: Cigarette Years Smoked: quit 2009 e-Cigarette/Vaping Use: Never Used Second Hand Smoke Exposure: No Are you DNR?: No Advance Directives: No Advance Directives Information Provided: Yes Nutrition Risks: No Nutritional Risk service: No Current occupational status: employed Cognitive needs: No Hearing needs: No Vision needs: No Meds Allergies Allergy/AdvReac Type Severity Reaction Status Date / Time pomegranate Allergy Severe ANAPHYLAXIS Verified 01/17/24 10:20 opiates Allergy Intermediate panic Verified 01/17/24 10:20 attacks penicillin V Allergy Intermediate severe Verified 01/17/24 10:20 yeast infections Penicillins Allergy Mild RASH Verified 01/17/24 10:20 Opioids - Morphine Analogues AdvReac Severe DYSPHORIA Verified 01/17/24 10:20 [OPIOIDS-MORPHINE & RELATED] AND PANIC ATTACKS Home Medications ?Medication ?Instructions ?Recorded ?Confirmed ?Last Taken ?Type Lactobacillus acidophilus 10 PO DAILY 08/02/20 01/03/24 Unknown History billion cell capsule cholecalciferol (vitamin D3) 25 25 mcg PO DAILY 08/23/20 01/17/24 Unknown History mcg (1,000 unit) capsule Exam Airway Mallampati Class: II TM Dist: >3cm Neck ROM: Full Loose/Missing/Broken Teeth: No Heart: rrr Lungs: cta Assessment and Plan Assessment Anesthesia Assessment: Anesthesia Plan Discussed Final Anesthetic Review Family History of Problems with Anesthesia: No History of Problems with Anesthesia: No NPO: Yes ASA Class: II Final Preanesthetic Review: No Changes in Pt Med Stat, Meds/Allgs Chart Reviewed and Consent Obtained/Reviewed Patient Risk: Intermediate Procedure Risk: Intermediate Anesthetic Plan Anesthetic Plan: MAC: Disposition: Standard PACU
[2024-01-17 10:03] VITALS: BMI 28.7
[2024-01-17] MEDS: Lactated Ringers 1,000 ML 100 ML IVCONT (10:09)
[2024-01-17 10:17] VITALS: BP 107/65; PULSE 68; RESP 18; TEMP 36.8; O2SAT 99
--- NOTE | 2024-01-17 11:50 | MHC.SHP ---
Pre-Procedural Eval Section A - 24 Hr Update-Section A only Date of Service: 01/17/24 Section B - Complete if H&P > 30 days Chief Complaint: GERD, screening Details of Present Illness: PMH Maxillary sinusitis Swelling of left foot Nasal congestion Nausea Low back pain Endometrial thickening on ultrasound Urethral diverticulum Herpes genitalis Anxiety and depression Migraine GERD (gastroesophageal reflux disease) Non-toxic multinodular goiter Shreya's disease Hypothyroidism Lump on face Surgical History Hx of hiatal hernia History of esophagogastroduodenoscopy (EGD) Hx of bilateral salpingectomy Hx of cholecystectomy Present Medications: see Short Stay Collaborative assessment Allergies: Allergies Allergy/AdvReac Type Severity Reaction Status Date / Time pomegranate Allergy Severe ANAPHYLAXIS Verified 01/17/24 10:20 opiates Allergy Intermediate panic Verified 01/17/24 10:20 attacks penicillin V Allergy Intermediate severe Verified 01/17/24 10:20 yeast infections Penicillins Allergy Mild RASH Verified 01/17/24 10:20 Opioids - Morphine Analogues AdvReac Severe DYSPHORIA Verified 01/17/24 10:20 [OPIOIDS-MORPHINE & RELATED] AND PANIC ATTACKS Review of Systems Review of Systems Comment: Ten point ROS negative Exam Exam Comment: Gen appear: No acute distress HEENT: no icterus Chest: No overt resp distress Abd: soft, nontender, nondistended Psych: Stable affect, answering questions appropriately Neuro: A/Ox3 noted to move all extremities spontaneously Ext: no peripheral edema Plan Diagnosis/Plan: Unchanged I have reviewed the history and physical and performed a pertinent physical examination on my patient. No changes have occurred unless specified. Time Spent With Patient Time: Total time managing care of this patient today ____ minutes.
--- NOTE | 2024-01-17 11:51 | P.OP_ITS ---
Operative Note Operative Note Date of Service: 01/17/24 Narrative: Procedure: Upper endoscopy and colonoscopy Indication: GERD, screening Endoscopist: Martine Coppola MD Anesthesia Provider: Kristen Jin CRNA Anesthesia type: MAC Instrument: [id number] and [id number]-[id number] EGD Procedure:?? The procedure, indications, preparation and potential complications were reviewed with the patient, who indicated understanding and gave written informed consent to proceed. An product distribution specialist assisted with the encounter. Physical exam was performed. The endoscope was introduced through the mouth, and advanced to the second part of duodenum. The mucosa was carefully examined on slow withdrawal of the endoscope. The patient tolerated the procedure well. There were no immediate complications.? EGD Findings:? * Esophagus:? Normal esophageal mucosa. The Z-line was at 38 cm. * Stomach:? Erythema and small erosions in the gastric intermittent body were noted. A few scattered polyps were noted in the fundus compatible with fundic gland polyps. Random cold forceps biopsies were taken to rule out H pylori. * Duodenum:? Erythema and erosions were noted in the duodenal bulb suspicious for peptic duodenitis. Cold forceps biopsies were taken from the duodenal bulb and 2nd portion of duodenum. Colonoscopy Procedure:? The patient was then turned for the colonoscopy. A digital rectal exam was performed which was abnormal for external hemorrhoids.? A distal attachment cap was affixed to the tip of the scope and the colonoscope was then inserted through the anus and advanced through the colon and advanced to the cecum at 70 cm and terminal ileum.? Appendiceal orifice and ileocecal valve were identified.? Mucosa was carefully examined under high definition white light as the instrument was slowly withdrawn in a retrograde panoramic fashion. Retroflexion was performed in ascending colon and rectum. The procedure was not difficult. There were no immediate obvious complications. The quality of the prep was BBPS: 2+3+2 = adequate Withdrawal time 10 minutes. Limitations: No limitations Findings: Mucosa: Melanosis coli otherwise normal colon and terminal ileum mucosa Protruding lesions: * One sessile polyp of size 5 mm noted in the cecum. Cold snare polypectomy was performed the polyp was completely removed and retrieved. * Large internal hemorrhoids without stigmata of recent bleeding. Impression: 1. Normal esophagus 2. Gastritis 3. Fundic gland polyps 4. Duodenitis 5. Cecal polyp 6. Melanosis coli 7. Internal and external hemorrhoids Recommendations:?? * Follow-up path results * If H pylori positive, will need treatment for eradication * Given persistent gastritis and duodenitis despite high-dose Dexilant, this was switched to AcipHex to bypass [id number] metabolism if present * Repeat colonoscopy in 5-7 years depending on the path
[2024-01-17 12:33] VITALS: BP 111/59; PULSE 62; RESP 14; TEMP 36.1; O2SAT 100
[2024-01-17 12:48] VITALS: BP 114/62; PULSE 53; RESP 18; TEMP 36.1; O2SAT 100
== END 2024-01-17 14:45 | disposition home or self-care (01) ==
PROVIDERS: PCP Internal Medicine; Visit Provider Internal Medicine
PROC: (CPT 45385; principal; 2024-01-17 12:10)
DX: Z12.11 Encounter for screening for malignant neoplasm of colon (principal); D12.0 Benign neoplasm of cecum; K64.4 Residual hemorrhoidal skin tags; K64.8 Other hemorrhoids; K63.89 Other specified diseases of intestine; K21.9 Gastro-esophageal reflux disease without esophagitis; K31.7 Polyp of stomach and duodenum; K29.70 Gastritis, unspecified, without bleeding; K29.80 Duodenitis without bleeding; Z88.0 Allergy status to penicillin; Z88.5 Allergy status to narcotic agent
CPT/HCPCS: 45385; 43239; 88305; 88313; 88342; J1100; J2250; J2405; J2704

== ENCOUNTER → 2024-01-17 09:29 | Outpatient (BNV) | payer OTHER, SELFPAY | PROVIDERS: PCP Internal Medicine; Visit Provider Internal Medicine | DX: Z12.11 Encounter for screening for malignant neoplasm of colon (principal); D12.0 Benign neoplasm of cecum; K63.89 Other specified diseases of intestine; K64.8 Other hemorrhoids; K21.9 Gastro-esophageal reflux disease without esophagitis; K31.7 Polyp of stomach and duodenum; K29.80 Duodenitis without bleeding | CPT/HCPCS: 43239; 45385 ==

== ENCOUNTER 2024-02-25 16:56 | Outpatient (AMB) | payer OTHER, SELFPAY ==
--- NOTE | 2024-02-25 16:59 | A.OFFPC_ITS ---
Vital Signs 02/25/24 17:00 Height 5 ft 4 in Weight 173 lb BMI 29.7 BP 128/70 Blood Pressure Location Lt brachial Position Sitting Pulse 78 Pulse Source Pulse Oximeter Pulse Oximetry (%) 98 Oxygen Delivery Method Room Air Intake Visit Reasons: PE Allergies pomegranate Allergy (Severe, Verified 02/25/24 17:01) ANAPHYLAXIS opiates Allergy (Intermediate, Verified 02/25/24 17:01) panic attacks penicillin V Allergy (Intermediate, Verified 02/25/24 17:01) severe yeast infections Penicillins Allergy (Mild, Verified 02/25/24 17:01) RASH Opioids - Morphine Analogues [OPIOIDS-MORPHINE & RELATED] Adverse Reaction (Severe, Verified 02/25/24 17:01) DYSPHORIA AND PANIC ATTACKS Medication List - Last Reconciled 02/25/24 by Susan You MD cetirizine (Zyrtec) 10 mg PO DAILY PRN cholecalciferol (vitamin D3) 25 mcg PO DAILY Lactobacillus acidophilus PO DAILY levothyroxine 100 mcg PO DAILY 30 days rabeprazole 20 mg PO DAILY sennosides 8.6 - 17.2 mg (1 - 2 x 8.6 mg) PO DAILY 30 days trazodone 50 mg PO BEDTIME PRN Tobacco use date assessed: 01/03/24 Dental Screening Dental Screen Date: 01/03/24 HPI PE HPI Details 43-year-old overweight female with hypot hyroidism GERD migraine iron deficiency anemia generalized anxiety disorder coming in for physical exam last seen in December 2023 for gastroenteritis. Patient's colon test done in December 2023 5-7 years, mammogram is up-to-date June 2023. occ dizzy [facility] Medical History (Updated 02/25/24 @ 17:19 by Susan You MD) Acute gastroenteritis Gastritis and duodenitis Maxillary sinusitis Swelling of left foot Nasal congestion Nausea Low back pain Endometrial thickening on ultrasound Urethral diverticulum Herpes genitalis Anxiety and depression Migraine GERD (gastroesophageal reflux disease) Non-toxic multinodular goiter Shreya's disease Hypothyroidism Lump on face Surgical History Hx of hiatal hernia History of esophagogastroduodenoscopy (EGD) Hx of bilateral salpingectomy Hx of cholecystectomy Family History (Updated 02/25/24 @ 17:28 by Susan You MD) Father No problems noted. Mother Diabetes mellitus HTN (hypertension) Maternal Uncle Pancreatic cancer Alcohol abuse Maternal Grandfather Diabetes mellitus Maternal Aunt Breast cancer Brother Substance abuse Paternal Grandmother Lung cancer Uterine cancer Other Mental health disorder Social History (Updated 02/25/24 @ 17:30 by Susan You MD) Housing: House Alcohol intake: never Comment: drank 02/2024 Patient Tobacco Use Status: Former Tobacco user Tobacco use type: Cigarette Years Smoked: quit 2009 e-Cigarette/Vaping Use: Never Used Second Hand Smoke Exposure: No service: No Current occupational status: employed Cognitive needs: No Hearing needs: No Vision needs: No Questionnaire PHQ-9 Over the last 2 weeks, how often have you been bothered by any of the following problems? 1. Little interest or pleasure in doing things: several days 2. Feeling down, depressed, or hopeless: several days 3. Trouble falling or staying asleep, or sleeping too much: not at all 4. Feeling tired or having little energy: several days 5. Poor appetite or overeating: several days 6. Feeling bad about yourself - or that you are a failure or have let yourself or your family down: not at all 7. Trouble concentrating on things, such as reading the newspaper or watching television: several days 8. Moving or speaking so slowly that other people could have noticed. Or the opposite - being so fidgety or restless that you have been moving around a lot more than usual: several days 9. Thoughts that you would be better off or of hurting yourself in some way: not at all Total score: 6 Depression Screening Interpretation: Positive Depression Screening Done: Yes 90799 - PHQ-9 Billing: Yes Source: Developed by Drs. John Rojas, Miriam Wu, Aayush Del Cid and colleagues, with an educational adelia from [employer]. Thrive Questionnaire Date Thrive assessed: 02/25/24 I am a: Patient What is your living situation today?: I have a steady place to live Within the past 12 months, did the food you bought not last and you didn't have the money to get more?: Never true Within the past 12 months, did you worry whether your food would run out before you got money to buy more?: Never true Do you have trouble paying for medicines?: No Do you have trouble getting transportation to medical appointments?: No Do you have trouble paying your heating and electricity bill?: No Do you have trouble taking care of your child, family member or friend?: No Do you have trouble with day-to-day activities such as bathing, preparing meals, shopping, managing finances, etc.?: No Are you currently unemployed and looking for a job?: No Are you interested in more education?: No Currently or been in a relationship where the following occur: no concerns reported THRIVE Score: 0 AUDIT C Alcohol Use Questionnaire (AUDIT-C) 1. How often do you have a drink containing alcohol?: Never Total Score: 0 MELISSA-7 AMB Questionnaire MELISSA-7 Date MELISSA - 7 assessed: 02/25/24 Feeling nervous, anxious, or on edge: 1 = Several days Not being able to stop or control worryin = Not at all Worrying too much about different things: 0 = Not at all Trouble relaxin = Not at all Being so restless that it is hard to sit still: 0 = Not at all Becoming easily annoyed or irritable: 0 = Not at all Feeling afraid as if something awful might happen: 0 = Not at all Total MELISSA-7 score (0-4 normal; 5-9 mild; 10-14 moderate; 15-21 severe): 1 Source: Developed by Drs. John Rojas, Miriam Wu, Aayush Del Cid and colleagues, with an educational adelia from [employer]. Review of Systems Const Denies poor appetite and Denies weakness Eyes Denies no additional complaints ENT Reports Normal hearing present, Denies dizziness, Denies nasal congestion, Denies tinnitus and Denies sore throat Card Denies chest pain, Denies syncope, Denies rapid heart rate and Denies dyspnea Resp Denies cough and Denies dyspnea GI Denies change in stool character, Reports constipation, Denies diarrhea, Denies nausea and Denies vomiting Denies urinary frequency, Denies difficulty voiding and Denies dysuria Neuro Reports Normal hearing present, Denies confusion, Denies dizziness, Denies syncope and Denies weakness Psych Denies confusion Physical exam (Primary Care) Vital Signs: Last Vital Signs Pulse 78 02/25/24 17:00 BP 128/70 02/25/24 17:00 Pulse Ox 98 02/25/24 17:00 Oxygen Delivery Method Room Air 02/25/24 17:00 BMI result Body Mass Index 29.7 Tobacco/Smoking Status: Tobacco use Status Tobacco use date assessed 01/03/24 02/25/24 17:02 Patient Tobacco Use Status Former Tobacco user 02/25/24 17:30 Tobacco use type Cigarette 02/25/24 17:30 e-Cigarette/Vaping Use Never Used 02/25/24 17:30 PHQ-9: PHQ-9 Score PHQ-9: Total score 6 02/25/24 17:19 Depression Screening Interpretation: Positive Thrive Assessment: Date of Thrive Assessment Date Thrive assessed 02/25/24 02/25/24 17:02 Currently or been in a relationship where the following occur: no concerns reported Const General: No confusion Orientation/consciousness: No confusion HENMT Head: Yes normocephalic Ears: external ears normal and TM's normal bilaterally Face and sinus: Yes normal facial exam Mouth: moist mucous membranes Throat: Yes tonsils normal Eyes Conjunctivae: conjunctivae normal Pupils: Equal, round and reactive pupils present and Pupil accommodation reflex normal Direct Ophthalmoscopy: normal light reflex Neck Neck: No lymphadenopathy Thyroid: Thyroid normal Chest Chest palpation & inspection: normal inspection of the chest Resp Effort & Inspection: normal respiratory effort and no audible wheezes Auscultation: clear to auscultation bilaterally, no crackles, no wheezes and lung sounds not diminished Cardio Rate: regular rate Rhythm: regular rhythm Peripheral pulses: radial pulses present and dorsalis pedis present GI Palpation (GI): no masses Auscultation: normal bowel sounds and normoactive bowel sounds Rectal Exam - Female: deferred Skin General skin exam: no rashes or lesions noted Rashes: no rashes Neuro General: No confusion Cranial nerves: Yes Equal, round and reactive pupils present and Yes Normal hearing present Cognition (Neuro): normal cognition Gait exam (Neuro): Normal gait present Motor exam (neuro): 5/5 motor strength present throughout Deep tendon reflexes (DTR's): Right brachioradialis reflex intensity grade: 2+, Left brachioradialis reflex intensity grade: 2+, Right patellar reflex intensity grade: 2+ and Left patellar reflex intensity grade: 2+ Extrem General: No edema Immunizations tetanus-diphtheria toxoids-Td 2 Lf unit-2 Lf unit/0.5 mL IM suspension Performing Provider: Susan You MD [facility] Administered by: Alison Cates CMA on 02/25/24 17:42 Dose Route Admin Location Dispensed Lot Number Expiration Date [employer] Tank [employer]er 0.5 mL IM Left Deltoid 0.5 mL [id number] 11/24/24 [address]-7 [employer] VIS Given Date VIS Provided VIS Publication Date 02/25/24 Single Vaccine 21 Eligibility Eligibility Date Funding Source Not VFC Eligible 02/25/24 State funds Assessment and Plan Assessment & Plan (1) Annual physical exam: Code(s): Z00.00 - Encounter for general adult medical examination without abnormal findings (2) Hypothyroidism: Comment: September 2022 Code(s): E03.9 - Hypothyroidism, unspecified Qualifiers: Hypothyroidism type: acquired Qualified Code(s): E03.9 - Hypothyroidi sm, unspecified Plan: Continue with thyroid medication October 2023 last tested (3) Generalized anxiety disorder: Comment: Therapy in [facility] in [place] Code(s): F41.1 - Generalized anxiety disorder Plan: Continue with counseling and therapy (4) GERD (gastroesophageal reflux disease): Code(s): K21.9 - Gastro-esophageal reflux disease without esophagitis Qualifiers: Esophagitis presence: without esophagitis Qualified Code(s): K21.9 - Gastro-esophageal reflux disease without esophagitis Plan: Avoid the foods that causes that usually spicy foods, tomato products, juices, coffee, soda and foods that your sensitive to. After eating do not lie down, allow 3-4 hours before in lie down. And keep the head of bed above 30 degrees to avoid the acid from going up. On rabeprazole (5) Tubular adenoma of colon: Comment: January 2024 Code(s): D12.6 - Benign neoplasm of colon, unspecified Plan: Advised repeat in 5 to 7 years Orders: Orders Complete Blood Count Auto Diff 6 Months E03.9 - Hypothyroidism, unspecified Comprehensive Met. Panel 6 Months E03.9 - Hypothyroidism, unspecified Free T4 (Free Thyroxine) 6 Months E03.9 - Hypothyroidism, unspecified Thyroid Stimulating Hormone 6 Months E03.9 - Hypothyroidism, unspecified Td State Immunization Today Z23 - Encounter for immunization Medications: Refilled levothyroxine 100 mcg PO DAILY 30 days 90 tabs 1RF E03.9 - Hypothyroidism, unspecified rabeprazole 20 mg PO DAILY 90 tabs 0RF K29.90 - Gastroduodenitis, unspecified, without bleeding Coding Level of Care Code Est Pt Prev Care 40-64y(10814) Diagnoses Annual physical exam Z00.00 Acquired hypothyroidism E03.9 Hypothyroidism type: acquired Generalized anxiety disorder F41.1 Gastroesophageal reflux disease without esophagitis K21.9 Esophagitis presence: without esophagitis Tubular adenoma of colon D12.6
[2024-02-25 17:00] VITALS: BP 128/70; PULSE 78; O2SAT 98; BMI 29.7
== END 2024-02-25 17:52 | disposition home or self-care (01) ==
PROVIDERS: PCP Internal Medicine; Visit Provider Internal Medicine
DX: Z23 Encounter for immunization (principal); Z00.00 Encounter for general adult medical examination without abnormal findings; E03.9 Hypothyroidism, unspecified; F41.1 Generalized anxiety disorder; K21.9 Gastro-esophageal reflux disease without esophagitis
CPT/HCPCS: 90471; 90714; 99396

== ENCOUNTER 2024-04-02 07:43 | Outpatient (AMB) | payer OTHER, SELFPAY ==
--- NOTE | 2024-04-02 08:12 | A.OFFVIS_ITS ---
Vital Signs 04/02/24 08:19 Height 5 ft 4 in Weight 169 lb 12.095 oz BMI 29.1 BP 104/64 Blood Pressure Location Rt brachial Position Sitting Pulse 62 Pulse Source Pulse Oximeter Pulse Oximetry (%) 100 Oxygen Delivery Method Room Air Intake Visit Reasons: Req FUV Naima + Pt. Abd Pain with activity Intake Note: Candice presents in office today for a req'd FUV per provider. CC: Pt reports abdominal pain with any strenuous activity. Pt reports that she has always practiced with kickboxing at the gym. Pt has noticed that once she gets started with the heavier part of her routine, she notices a moderate to severe pain. Pt reports onset of pain approximately 4-5 years ago. Pt reports that their sx have become slightly more prevalent over the course of the last few months. Pt states that they have intermittent presentation, some days their sx are severe and some days they are mild. Pt reports that her severe days are approximately an 8/10 pain. Pt reports noticing this pain the most during the cardio intense parts of her workout. Pt reports that after a period of rest, without any treatments, the pain typically goes away. Allergies pomegranate Allergy (Severe, Verified 04/02/24 08:21) ANAPHYLAXIS opiates Allergy (Intermediate, Verified 04/02/24 08:21) panic attacks penicillin V Allergy (Intermediate, Verified 04/02/24 08:21) severe yeast infections Penicillins Allergy (Mild, Verified 04/02/24 08:21) RASH Opioids - Morphine Analogues [OPIOIDS-MORPHINE & RELATED] Adverse Reaction (Severe, Verified 04/02/24 08:21) DYSPHORIA AND PANIC ATTACKS HPI HPI Req FUV Naima + Pt. Abd Pain with activity: Details: LAST VISIT 09/24/2023 GERD (gastroesophageal reflux disease) Chronic idiopathic constipation Screen for colon cancer Plan Continue Dexilant at bedtime. Patient was encouraged to avoid dietary triggers and late night snacking. Staying upright for minimum 3 hours after meals discussed with patient. Patient will be sent for upper endoscopy to rule out esophagitis, gastritis, duodenitis, gastric or peptic ulcers, H pylori. Patient was encouraged to increase fluid intake and activity to promote better bowel motility. She may take senna on as needed basis. Encouraged to take senna for 1 week before the procedure to make sure that she empties her bowels completely before the procedure. With expect before during and after the procedure discussed with patient. Stressed with patient the importance of good bowel prep and clear liquid diet day before the procedure. Patient denies any cardiac or respiratory symptoms. No history of sleep apnea. Not on any anticoagulation medication. I will see her after the procedure, sooner on as needed basis. Patient is agreeable to this plan and verbalizes understanding of instructions. She was given the opportunity to ask questions and all questions answered. ? Thank you for allowing me to participate in her care Medications New bisacodyl (Dulcolax (bisacodyl)) take 4 tabs at noon the day before your colonoscopy 20 mg (4 x 5 mg) PO ONCE 1 day 4 tabs 0RF Z12.11 polyethylene glycol 3350 (Miralax) As directed by gastroenterology department at [facility] 238 grams PO ONCE 238 grams 0RF Z12.11 COLONOSCOPY AND UPPER ENDOSCOPY EGD Findings:? * Esophagus:? Normal esophageal mucosa. The Z-line was at 38 cm. * Stomach:? Erythema and small erosions in the gastric intermittent body were noted. A few scattered polyps were noted in the fundus compatible with fundic gland polyps. Random cold forceps biopsies were taken to rule out H pylori. * Duodenum:? Erythema and erosions were noted in the duodenal bulb suspicious for peptic duodenitis. Cold forceps biopsies were taken from the duodenal bu lb and 2nd portion of duodenum. Colonoscopy Procedure:? The patient was then turned for the colonoscopy. A digital rectal exam was performed which was abnormal for external hemorrhoids.? A distal attachment cap was affixed to the tip of the scope and the colonoscope was then inserted through the anus and advanced through the colon and advanced to the cecum at 70 cm and terminal ileum.? Appendiceal orifice and ileocecal valve were identified.? Mucosa was carefully examined under high definition white light as the instrument was slowly withdrawn in a retrograde panoramic fashion. Retroflexion was performed in ascending colon and rectum. The procedure was not difficult. There were no immediate obvious complications. The quality of the prep was BBPS: 2+3+2 = adequate Withdrawal time 10 minutes. Limitations: No limitations Findings: Mucosa: Melanosis coli otherwise normal colon and terminal ileum mucosa Protruding lesions: * One sessile polyp of size 5 mm noted in the cecum. Cold snare polypectomy was performed the polyp was completely removed and retrieved. * Large internal hemorrhoids without stigmata of recent bleeding. Impression: 1. Normal esophagus 2. Gastritis 3. Fundic gland polyps 4. Duodenitis 5. Cecal polyp 6. Melanosis coli 7. Internal and external hemorrhoids Recommendations:?? * Follow-up path results * If H pylori positive, will need treatment for eradication * Given persistent gastritis and duodenitis despite high-dose Dexilant, this was switched to AcipHex to bypass [id number] metabolism if present * Repeat colonoscopy in 5-7 years depending on the path PATHOLOGY RESULTS Diagnosis A. Duodenum, biopsy: Duodenal mucosa with Clara gland hyperplasia; otherwise within normal limits. B. Stomach, random, biopsy: Antral-type and oxyntic mucosa with mild chronic inactive inflammation; no Helicobacter organisms seen. C. Cecum, polypectomy: Fragments of tubular adenoma; negative for high-grade dysplasia or carcinoma TODAY'S VISIT Patient is here today for follow-up and to discuss upper endoscopy and colonoscopy. Patient denies any ill effects from the prep, anesthesia or procedure itself. Patient reports that she continues to have upper abdominal pain mainly when exercising. Patient states that she goes to the gym a lot and is doing her cardio. The more she exercises she feels that the pain is worse. Patient is unsure if this is muscular or not as when she rests the pain usually goes away. This pain is not associated to the food that she is eating. Upper endoscopy and colonoscopy results discussed with patient. Patient currently is taking rabeprazole and is tolerating fairly well. Patient denies any nausea or vomiting. Denies any melena, hematochezia. FORMERLY [facility], [facility] Medical History Acute gastroenteritis Gastritis and duodenitis Maxillary sinusitis Swelling of left foot Nasal congestion Nausea Low back pain Endometrial thickening on ultrasound Urethral diverticulum Herpes genitalis Anxiety and depression Migraine GERD (gastroesophageal reflux disease) Non-toxic multinodular goiter Shreya's disease Hypothyroidism Lump on face Surgical History H/O colonoscopy Hx of hiatal hernia History of esophagogastroduodenoscopy (EGD) Hx of bilateral salpingectomy Hx of cholecystectomy Family History Father No problems noted. Mother Diabetes mellitus HTN (hypertension) Maternal Uncle Pancreatic cancer Alcohol abuse Maternal Grandfather Diabetes mellitus Maternal Aunt Breast cancer Brother Substance abuse Paternal Grandmother Lung cancer Uterine cancer Other Mental health disorder Social History Housing: House Alcohol intake: never Comment: drank 02/2024 Patient Tobacco Use Status: Former Tobacco user Tobacco use type: Cigarette Years Smoked: quit 2009 e-Cigarette/Vaping Use: Never Used Second Hand Smoke Exposure: No service: No Current occupational status: employed Cognitive needs: No Hearing needs: No Vision needs: No Review of Systems Const Denies weight gain and Denies weight loss ENT Reports no additional complaints, Denies dysphagia and Denies odynophagia Card Reports no additional complaints Resp Reports no additional complaints GI Reports abdominal pain (epigastric), Denies belching, Denies melena, Denies bloating, Denies change in bowel habits, Reports constipation, Denies dysphagia, Denies excessive flatus, Denies dyspepsia, Denies heartburn, Denies diarrhea, Denies loose stools, Denies nausea, Denies odynophagia and Denies vomiting Reports no additional complaints Musc Reports no additional complaints Neuro Reports no additional complaints Psych Reports no additional complaints Endo Reports no additional complaints Physical Exam Vital Signs: Last Vital Signs Pulse 62 04/02/24 08:19 BP 104/64 04/02/24 08:19 Pulse Ox 100 04/02/24 08:19 Oxygen Delivery Method Room Air 04/02/24 08:19 BMI result Body Mass Index 29.1 Const General: healthy appearing and no acute distress Nutritional Appearance: obese Orientation/consciousness: patient oriented x3 Resp Effort & Inspection: normal respiratory effort, able to speak in complete sentences, no tracheal deviation and symmetric chest movement Auscultation: clear to auscultation bilaterally Cardio Rate: regular rate GI Inspection: Yes normal to inspection, No distended and Yes obesity Palpation (GI): Soft to palpation, not firm, nontender and No hepatosplenomegaly present Auscultation: normal bowel sounds General: Yes no CVA tenderness Back/Spine/Pelvis Back: no CVA tenderness Skin General skin exam: elasticity normal, turgor normal and dry skin Neuro General: patient oriented x3 Psych Appearance: grossly normal Mental Status: mental status grossly normal Assessment & Plan Assessment & Plan (1) Tubular adenoma of colon: Comment: January 2024 Code(s): D12.6 - Benign neoplasm of colon, unspecified Category: Medical (2) GERD (gastroesophageal reflux disease): Code(s): K21.9 - Gastro-esophageal reflux disease without esophagitis Category: Medical Qualifiers: Esophagitis presence: without esophagitis Qualified Code(s): K21.9 - Gastro-esophageal reflux disease without esophagitis (3) Chronic idiopathic constipation: Code(s): K59.04 - Chronic idiopathic constipation Plan Epigastric pain not always related to food. Patient will go for upper GI series to rule out reflux. Check for hernia. Patient will try to work out slow. Continue rabeprazole daily. Avoid dietary triggers and late night snacking. Staying upright for minimum 3 hours after meals discussed with patient. Tubular adenoma found without high-grade dysplasia or carcinoma. Colonoscopy will be repeated in 5 years, sooner on as needed basis. Patient will follow-up in the office in 6 months. Patient is agreeable to this plan and verbalizes understanding of instructions. She was given the opportunity to ask questions and all questions answered. Thank you for allowing me to participate in her care Orders: Orders FL upper GI series 04/02/24 K21.9 - Gastro-esophageal reflux disease without esophagitis Coding Level of Care Code Est Pt Level 3 (77377) Diagnoses Tubular adenoma of colon D12.6 Gastroesophageal reflux disease without esophagitis K21.9 Esophagitis presence: without esophagitis Chronic idiopathic constipation K59.04 Time Spent (min) 30 Comment 20 minutes spent with patient and additional 10 minutes spent reviewing her records
[2024-04-02 08:19] VITALS: BP 104/64; PULSE 62; O2SAT 100; BMI 29.1
== END 2024-04-02 08:57 | disposition home or self-care (01) ==
PROVIDERS: PCP Internal Medicine; Referring Provider Internal Medicine; Visit Provider Nurse Practitioner Family
DX: D12.6 Benign neoplasm of colon, unspecified (principal); K21.9 Gastro-esophageal reflux disease without esophagitis; K59.04 Chronic idiopathic constipation
CPT/HCPCS: 99213

== ENCOUNTER → 2024-04-02 07:43 | Outpatient (BNVA) | payer OTHER, SELFPAY | PROVIDERS: PCP Internal Medicine; Visit Provider Nurse Practitioner Family | DX: K21.9 Gastro-esophageal reflux disease without esophagitis (principal); K59.04 Chronic idiopathic constipation; D12.6 Benign neoplasm of colon, unspecified | CPT/HCPCS: 99212 ==

== ENCOUNTER 2024-05-07 08:05 | Outpatient (REF) | payer OTHER, SELFPAY ==
--- NOTE | ~2024-05-07 | FL_ITS ---
EXAMINATION: XR FLUOROSCOPY UPPER GI WITH AIR CLINICAL INFORMATION: Reflux COMPARISON: None TECHNIQUE: Fluoroscopic air contrast upper GI examination was performed utilizing standard techniques with thin and thick barium and effervescent granules. Numerous spot images were obtained. FINDINGS: Dual and single contrast images of the esophagus demonstrate normal caliber, contour, and mucosal pattern. No evidence of stricture, mass, or ulcerations identified. Esophageal peristalsis was normal. A small type I hiatal hernia is present. No significant gastroesophageal reflux was seen during the course of the examination and on reflux views. Surgical clips are present in the right upper quadrant. Dual contrast and single contrast images of the stomach demonstrated a normal contour. The gastric rugal folds have a mildly thickened appearance suggestive of gastritis. No masses or ulcerations are seen. Contrast freely passed into the gastric antrum and duodenal bulb without delay. Single and air-contrast images of the duodenal bulb demonstrate no abnormality. The duodenal sweep has a normal appearance, course, and mucosal fold appearance. The imaged proximal jejunum has a normal fold pattern and caliber. FLUOROSCOPY TIME: 3 minutes 21 seconds Number of Spot Images: 7 Number of Cine: 12 DOSE AREA PRODUCT: 2195 uGy-m2 (microgray-meter squared) FL/FL upper GI w air IMPRESSION: 1. Small type I hiatal hernia. 2. Mildly thickened appearance of the gastric rugal folds, which can suggest underlying gastritis. 3. Previous cholecystectomy. This procedure was performed by Mike Denney PA-C, and supervised by Dr. Arthur
== END 2024-05-07 08:06 | disposition home or self-care (01) ==
LOC: HO.XRAY 08:05
PROVIDERS: PCP Internal Medicine; Visit Provider Nurse Practitioner Family
DX: K21.9 Gastro-esophageal reflux disease without esophagitis (principal)
CPT/HCPCS: 74246

== ENCOUNTER → 2024-05-07 08:09 | Outpatient (BNV) | payer OTHER, SELFPAY | PROVIDERS: PCP Internal Medicine; Visit Provider Physician Assistant Surgical | DX: K21.9 Gastro-esophageal reflux disease without esophagitis (principal) | CPT/HCPCS: 74246 ==

== ENCOUNTER → 2024-06-12 13:15 | Outpatient (RCR) | payer OTHER, SELFPAY ==
--- NOTE | 2020-10-26 08:48 | P.CNHO_ITS ---
Subjective - Subjective Consult date: 10/26/20 Requesting Physician: BASIM Primary Care Provider: Susan You MD Medical Summary: DIAGNOSIS: ANEMIA. HPI - Consult Narrative Reason for consult: Anemia. Narrative: Candice Smith is a pleasant 40 year old lady, who has been noted to be anemic. Review of her labs in the computer revealed the following hemoglobin trend: 09/01: 11.4. 11/02: 11.8. 06/21:12.7. 04/03:11.9. 08/03:11.3. Iron studies from July revealed: 52/405/13/. She is iron deficient and has menorrhagia and has been seeing the OB senior underwriting assistant but does not want to have hysterectomy. She tells me she has had a heavy period all her life however it is actually better than in her 30s. It is on time however she used to have blood clots. They offered Mirena IUD however hormonal treatments give her headaches. She does not wish to undergo any procedures. She has tried oral iron however that makes her constipated even with the senna. Lately she has noted that she has been more tired than usual. She denies any fever nor chills. She enjoys a good appetite. She has gained weight. Denies any GI complaints. No urinary discomfort. She has some joint pains involving her hands and feet especially in the morning. She does have a history of depression. She has allergies and she has a dog and she know she is allergic to dogs. Takes the nasal spray. y she was given Claritin 10 mg p.o. Family history: Mother has diabetes. A sister has iron deficiency anemia. Review of Systems - Constitutional Reports system reviewed and no additional complaints, except as documented, Reports fatigue, Reports increased appetite, Reports lack of energy, Reports malaise, Reports weight gain, Denies fever(s) - Eyes Reports system reviewed and no additional complaints, except as documented, Denies change in vision - ENT Reports system reviewed and no additional complaints, except as documented - Cardiovascular Reports system reviewed and no additional complaints, except as documented, Denies chest pain with activity - Respiratory Reports no additional respiratory complaints, Denies chest congestion - Gastrointestinal Reports system reviewed and no additional complaints, except as documented, Denies abdominal pain, Denies belching, Denies change in bowel habits - Genitourinary Reports no additional female genitourinary complaints - Musculoskeletal Reports system reviewed and no additional complaints, except as documented, Denies back pain - Integumentary/Breasts Skin/Breast: Reports no additional skin complaints, Denies bleeding lesions - Neurologic Reports system reviewed and no additional complaints, except as documented - Psychiatric Reports system reviewed and no additional complaints, except as documented, Rep orts depression, Denies abnormal sleep pattern - Endocrine Reports no additional endocrine complaints, Denies excessive sweating - Hematologic/Lymphatic Reports system reviewed and no additional complaints, except as documented, Denies easy bleeding - Allergic/Immunologic Reports system reviewed and no additional complaints, except as documented, Denies GI upset with certain foods PMFSH Medical History: Medical History (Last Updated 08/23/20 @ 17:54 by Susan You MD) Anemia Anxiety and depression Endometrial thickening on ultrasound GERD (gastroesophageal reflux disease) Shreya's disease Herpes genitalis Hypothyroidism Migraine Non-toxic multinodular goiter Urethral diverticulum Functional capacity: independent ambulation Patient : No Family History: Family History (Last Updated 08/05/20 @ 15:46 by ARLIN Ospina) Father No problems noted. Mother Diabetes mellitus HTN (hypertension) Maternal Uncle Pancreatic cancer Maternal Grandfather Diabetes mellitus Surgical History: Surgical History (Last Updated 08/05/20 @ 15:44 by ARILN Ospina) History of esophagogastroduodenoscopy (EGD) Hx of bilateral salpingectomy Hx of cholecystectomy Hx of hiatal hernia Home Medications and Allergies Home Medications Medication Instructions Recorded Confirmed Type ibuprofen 800 mg tablet 800 mg PO Q8H PRN 07/21/20 08/23/20 History metronidazole 0.75 % vaginal gel 1 appful VAGINAL BEDTIME 07/21/20 08/23/20 History Lactobacillus acidophilus 10 PO DAILY cap 08/02/20 08/23/20 History billion cell capsule dexlansoprazole 60 mg 60 mg PO DAILY 08/02/20 08/23/20 History capsule,biphase delayed release sennosides 8.6 mg tablet [id number]? mg PO DAILY 08/06/20 08/23/20 History cholecalciferol (vitamin D3) 25 25 mcg PO DAILY 08/23/20 08/23/20 History mcg (1,000 unit) capsule cyanocobalamin (vitamin B-12) 1,000 mcg PO DAILY 08/23/20 08/23/20 History 1,000 mcg capsule Allergies Allergy/AdvReac Type Severity Reaction Status Date / Time pomegranate Allergy Severe ANAPHYLAXIS Verified 10/26/20 08:55 Penicillins Allergy Mild RASH Verified 10/26/20 08:55 opiates Allergy Unknown panic Verified 10/26/20 08:55 attacks penicillin V Allergy Unknown severe Verified 10/26/20 08:55 yeast infections Opioids - Morphine Analogues AdvReac Severe DYSPHORIA Verified 10/26/20 08:55 [OPIOIDS-MORPHINE & RELATED] AND PANIC ATTACKS Physical Exam - Constitutional Present: no acute distress - Routine HEENT Exam Head: Present: normal inspection ENT: Present: mucous membranes moist - Routine Neck Exam Present: supple - Routine Respiratory Exam Present: CTAB - Routine Cardiovascular Exam Cardiovascular: Present: RRR, S1, S2 - Routine Extremities Exam Present: nontender - Routine Back/Spine/Pelvis Exam Back/Spine: Present: full ROM - Detailed Neurological Exam: Coma Scale Eye Opening: Spontaneous (4) Verbal Response: Oriented (5) Motor Response: Obeys commands (6) [place] Coma Scale Total: 15 - Routine Psychiatric Exam Present: normal affect Hem/Onc Consult Result - Labs CBC & Chem 7: 10/26/20 09:45 10/26/20 09:45 Assessment and Plan (1) Iron deficiency anemia Status: Acute This is a pleasant 40-year-old lady with a history of Anemia. The anemia is microcytic hypochromic. Her iron indices are Consistent with iron deficiency. Most likely related to underlying blood loss, she has had menorrhagia. Differential diagnosis also includes iron malabsorption: From something like celiac disease. She has been intolerant to oral iron in the past. PLAN: I will proceed with further evaluation. Will check celiac disease profile. Will arrange for iron IV. She will receive IV Ferrlecit, in SSS, starting Sunday. She will continue to follow up with obstetrics gyn for further workup. Thank you CC: Dr. You. Dr. Balbuena.
[2020-10-26 08:52] VITALS: BP 120/61; PULSE 65; RESP 18; TEMP 36.4; O2SAT 100; BMI 28.4
--- NOTE | 2020-10-26 09:53 | MHC.HEMONC ---
Patient here for consult. Clinical summary updated by nurse. Provider seen patient. Labs ordered and drawn. Follow-up booked. IV Ferrlecit scheduled and booked and given to patient. SSS aware.
[2020-10-26 10:09] LABS: MANUAL DIFF FLAG NO
[2020-10-26 10:14] LABS: Basophils Percent Auto 0.7 % (0-2); Eosinophils Absolute Auto 0.2 X10*3/uL (0.0-0.4); Eosinophils Percent Auto 3.9 % (0-4); Hematocrit 35.2 % (37-47); Hemoglobin 11.8 g/dl (12.0-16.0); Imm Gran Abs Auto 0.01 X10*3/uL (0.00-0.03); Imm Gran Pct Auto 0.2 % (0.0-0.4); Lymphocytes Absolute Auto 1.8 X10*3/uL (1.2-4.9); Lymphocytes Percent Auto 32.7 % (20-40); Mean Corpuscular HGB Conc 33.5 g/dl (31.0-35.0); Mean Corpuscular Volume 83.4 fL (80-98); Mean Platelet Volume 10.6 fL (9.4-12.3); Monocytes Absolute Auto 0.4 X10*3/uL (0.1-1.2); Monocytes Percent Auto 7.2 % (2-11); Neutrophils Percent Auto 55.3 % (45-73); Platelet Count 277 X10*3/uL (160-400); Red Blood Count 4.22 X10*6/uL (4.20-5.50); Red Cell Distribution Width 15.7 % (11.0-16.0); White Blood Count 5.4 X10*3/uL (4.8-10.8)
[2020-10-26 10:44] LABS: Alanine Aminotransferase 12 U/L (0-31); Albumin Level 3.9 g/dL (3.5-5.0); Alkaline Phosphatase 50 U/L (39-117); Anion Gap 9 (12-20); Aspartate Amino Transferase 16 U/L (5-31); Bilirubin Total 0.3 mg/dL (0.0-1.0); Blood Urea Nitrogen 9 mg/dL (9-16); Calcium 8.3 mg/dL (8.4-10.2); Carbon Dioxide 27 mmol/L (22-29); Chloride 108 mmol/L (96-108); Creatinine Clr Calc Pharmacy 103.9; Estimated Glomerular Filt Rate > 60; Glucose Random 94 mg/dL (60-115); Potassium 4.2 mmol/l (3.3-5.1); Sodium 140 mmol/L (135-145); Total Protein 6.1 g/dL (6.5-8.0)
[2020-10-26 11:01] LABS: Ferritin 4 ng/mL (10-250)
[2020-10-27 22:07] LABS: Transglutaminase IgA 1 U/mL
--- NOTE | 2020-11-10 10:40 | MHC.HEMONCMA ---
Called and left a voicemail for the patient to call me back, I gave her 2 dates- 11/16/20 at 1pm or 11/18/2020 at 10 am for her ferrelicit infusion. Waiting for her call back with which date she chooses.
--- NOTE | 2020-11-15 14:11 | MHC.HEMONCMA ---
Called and left another voicemail for the patient letting her know we are just waiting on her to schedule a date for the infusion.
[2021-01-25 15:59] VITALS: BP 115/58; PULSE 82; RESP 12; TEMP 36.9; O2SAT 96; BMI 27.7
[2021-01-25 16:13] LABS: MANUAL DIFF FLAG NO
--- NOTE | 2021-01-25 16:15 | P.PNHO_ITS ---
Medical Summary - Medical Summary Date of Service: 01/25/21 Chief complaint: Follow-up for: Anemia. Medical Summary: DIAGNOSIS: IRON DEFICIENCY ANEMIA. CURRENT THERAPY: IV INJECTOFER 750 mg x2. Interval History Interval history: Candice Smith is a pleasant 40 year old lady, here for a follow-up visit. She tells me she is doing great. Her energy level is back up to normal since she received the IV iron. She does not feel cold anymore. Her body feels nice and warm. She is still getting her. However it is not as heavy as previously. It lasts 5 days or sometimes 7. She tells me she did get COVID in November. She recently had the COVID vaccine given. Subsequently she had some nausea. That has resolved. She does have antiemetics for when she gets the 2nd dose of Pfizer vaccine. She denies any fever nor chills. She enjoys a good appetite. She has gained weight. Denies any GI complaints. No urinary discomfort. She has some joint pains involving her hands and feet especially in the mornin g. She does have a history of depression. She has allergies and she has a dog and she know she is allergic to dogs. Takes the nasal spray. She was given Claritin 10 mg p.o. Previous history: She has been noted to be anemic. Review of her labs in the computer revealed the following hemoglobin trend: 09/01: 11.4. 11/02: 11.8. 06/21:12.7. 04/03:11.9. 08/03:11.3. Iron studies from July revealed: 52/405/13/. She is iron deficient and has menorrhagia and has been seeing the OB horticultural farm manager but does not want to have hysterectomy. She tells me she has had a heavy period all her life however it is actually better than in her 30s. It is on time however she used to have blood clots. They offered Mirena IUD however hormonal treatments give her headaches. She does not wish to undergo any procedures. She has tried oral iron however that makes her constipated even with the senna. Lately she has noted that she has been more tired than usual. Family history: Mother has diabetes. A sister has iron deficiency anemia. Review of Systems - Constitutional Reports system reviewed and no additional complaints, except as documented - Eyes Reports system reviewed and no additional complaints, except as documented - ENT Reports system reviewed and no additional complaints, except as documented - Cardiovascular Reports system reviewed and no additional complaints, except as documented - Respiratory Reports no additional respiratory complaints - Gastrointestinal Reports system reviewed and no additional complaints, except as documented - Genitourinary Reports no additional female genitourinary complaints - Musculoskeletal Reports system reviewed and no additional complaints, except as documented - Integumentary/Breasts Skin/Breast: Reports no additional skin complaints - Neurologic Reports system reviewed and no additional complaints, except as documented - Psychiatric Reports system reviewed and no additional complaints, except as documented - Endocrine Reports no additional endocrine complaints - Hematologic/Lymphatic Reports system reviewed and no additional complaints, except as documented - Allergic/Immunologic Reports system reviewed and no additional complaints, except as documented PMFSH Medical History: Medical History (Last Reviewed 01/25/21 @ 16:09 by Maya Macias) Anxiety and depression Endometrial thickening on ultrasound GERD (gastroesophageal reflux disease) Shreya's disease Herpes genitalis Hypothyroidism Migraine Non-toxic multinodular goiter Urethral diverticulum Functional capacity: independent ambulation Patient : No Family History: Family History (Last Reviewed 01/25/21 @ 16:09 by Maya Macias) Father No problems noted. Mother Diabetes mellitus HTN (hypertension) Maternal Uncle Pancreatic cancer Maternal Grandfather Diabetes mellitus Surgical History: Surgical History (Last Reviewed 01/25/21 @ 16:09 by Maya Macias) History of esophagogastroduodenoscopy (EGD) Hx of bilateral salpingectomy Hx of cholecystectomy Hx of hiatal hernia Social History: Social History (Last Updated 01/25/21 @ 16:12 by Maya Macias) Alcohol History: Alcohol intake: current Alcohol History Details: Alcohol intake frequency: a few times a month Alcohol type: beer Tobacco History: Smoking Status: Former smoker Substance Use History: Use of substances other than those prescribed or required for medical reasons : No Nutrition Assessment: Patient : No Smoking status: Former smoker Oncology Screenings - ECOG Performance Status ECOG Performance Status: 0 Home Medications and Allergies Home Medications Medication Instructions Recorded Confirmed Type metronidazole 0.75 % vaginal gel 1 appful VAGINAL BEDTIME 07/21/20 01/03/21 History Lactobacillus acidophilus 10 PO DAILY cap 08/02/20 01/03/21 History billion cell capsule sennosides 8.6 mg tablet [id number]? mg PO DAILY 08/06/20 01/25/21 History cholecalciferol (vitamin D3) 25 25 mcg PO DAILY 08/23/20 01/25/21 History mcg (1,000 unit) capsule cyanocobalamin (vitamin B-12) 1,000 mcg PO DAILY 08/23/20 01/25/21 History 1,000 mcg capsule Allergies Allergy/AdvReac Type Severity Reaction Status Date / Time pomegranate Allergy Severe ANAPHYLAXIS Verified 10/26/20 08:55 Penicillins Allergy Mild RASH Verified 10/26/20 08:55 opiates Allergy Unknown panic Verified 10/26/20 08:55 attacks penicillin V Allergy Unknown severe Verified 10/26/20 08:55 yeast infections Opioids - Morphine Analogues AdvReac Severe DYSPHORIA Verified 10/26/20 08:55 [OPIOIDS-MORPHINE & RELATED] AND PANIC ATTACKS Exam Vital signs: Vital Signs Temp 98.4 F 01/25/21 15:59 Pulse 82 01/25/21 15:59 Resp 12 01/25/21 15:59 BP 115/58 L 01/25/21 15:59 Pulse Ox 96 01/25/21 15:59 Intake & Output 01/24/21 01/25/21 01/25/21 18:59 06:59 18:59 Other: Weight 73.3 kg Weight in Grams 29509 Weight 73.3 kg Body Mass Index 27.7 - Constitutional Present: no acute distress - Routine HEENT Exam Head: Present: normal inspection Eye: Present: normal appearance ENT: Present: mucous membranes moist - Routine Neck Exam Present: full ROM - Routine Respiratory Exam Present: CTAB - Routine Cardiovascular Exam Cardiovascular: Present: RRR, S1, S2 - Routine Abdominal Exam Present: soft, nontender - Routine Rectal Exam Patient deferred: digital exam - Routine Extremities Exam Present: nontender - Routine Back/Spine/Pelvis Exam Back/Spine: Present: full ROM - Routine Skin Exam Present: intact - Routine Neurological Exam Present: alert, oriented X3 - Detailed Neurological Exam: Coma Scale Eye Opening: Spontaneous (4) - Routine Psychiatric Exam Present: normal affect Data - Labs CBC & Chem 7: 01/25/21 16:05 01/25/21 16:05 Labs: 10/26/20 09:45 Complete Blood Count Auto Diff Routine Comprehensive Met. Panel Routine Ferritin Routine Transglutaminase IgA Routine Laboratory Last Values WBC 5.4 X10*3/uL (4.8-10.8) 10/26/20 09:45 RBC 4.22 X10*6/uL (4.20-5.50) 10/26/20 09:45 Hgb 11.8 g/dl (12.0-16.0) L 10/26/20 09:45 Hct 35.2 % (37-47) L 10/26/20 09:45 MCV 83.4 fL (80-98) 10/26/20 09:45 MCH 28.0 pg (27.0-33.0) 10/26/20 09:45 MCHC 33.5 g/dl (31.0-35.0) 10/26/20 09:45 RDW 15.7 % (11.0-16.0) 10/26/20 09:45 Plt Count 277 X10*3/uL (160-400) 10/26/20 09:45 MPV 10.6 fL (9.4-12.3) 10/26/20 09:45 Immature Gran % (Auto) 0.2 % (0.0-0.4) 10/26/20 09:45 Neut % (Auto) 55.3 % (45-73) 10/26/20 09:45 Lymph % (Auto) 32.7 % (20-40) 10/26/20 09:45 Crawford % (Auto) 7.2 % (2-11) 10/26/20 09:45 Eos % (Auto) 3.9 % (0-4) 10/26/20 09:45 Baso % (Auto) 0.7 % (0-2) 10/26/20 09:45 Lymph # (Auto) 1.8 X10*3/uL (1.2-4.9) 10/26/20 09:45 Crawford # (Auto) 0.4 X10*3/uL (0.1-1.2) 10/26/20 09:45 Eos # (Auto) 0.2 X10*3/uL (0.0-0.4) 10/26/20 09:45 Baso # (Auto) 0.0 X10*3/uL (0.0-0.2) 10/26/20 09:45 Abs Immat Gran (auto) 0.01 X10*3/uL (0.00-0.03) 10/26/20 09:45 Absolute Neuts (auto) 3.0 X10*3/uL (2.0-8.3) 10/26/20 09:45 Absolute Nucleated RBC 0.000 X10*3/uL (0.0-0.012) 10/26/20 09:45 Nucleated RBC % (auto) 0.0 /100WBC (0.0-0.2) 10/26/20 09:45 Sodium 140 mmol/L (135-145) 10/26/20 09:45 Potassium 4.2 mmol/l (3.3-5.1) 10/26/20 09:45 Chloride 108 mmol/L (96-108) 10/26/20 09:45 Carbon Dioxide 27 mmol/L (22-29) 10/26/20 09:45 Anion Gap 9 (12-20) L 10/26/20 09:45 BUN 9 mg/dL (9-16) 10/26/20 09:45 Creatinine 0.70 mg/dL (0.5-1.4) 10/26/20 09:45 Estim Creat Clear Calc 103.9 10/26/20 09:45 Estimated GFR > 60 10/26/20 09:45 Random Glucose 94 mg/dL (60-115) 10/26/20 09:45 Calcium 8.3 mg/dL (8.4-10.2) L 10/26/20 09:45 Ferritin 4 ng/mL (10-250) L 10/26/20 09:45 Total Bilirubin 0.3 mg/dL (0.0-1.0) 10/26/20 09:45 AST 16 U/L (5-31) 10/26/20 09:45 ALT 12 U/L (0-31) 10/26/20 09:45 Alkaline Phosphatase 50 U/L (39-117) 10/26/20 09:45 Total Protein 6.1 g/dL (6.5-8.0) L 10/26/20 09:45 Albumin 3.9 g/dL (3.5-5.0) 10/26/20 09:45 Tiss Transglutamin IgA 1 U/mL 10/26/20 09:45 Progress Note: A/P (1) Iron deficiency anemia Status: Acute Assessment and plan: This is a pleasant 40-year-old lady with a history of Anemia. The anemia was microcytic hypochromic. Her iron indices; Consistent with iron deficiency. Most likely related to underlying blood loss, she has had menorrhagia. Differential diagnosis also includes iron malabsorption: From something like celiac disease. She has been intolerant to oral iron in the past. l checked celiac disease profile: This was normal. l arranged for iron IV: Injectofer. That has really helped. Her energy level is back up to normal. Her CBC is: Within normal limits. PLAN: Will continue to monitor her blood count. She will continue to follow up with shear grinder operator helper for further workup. Thank you CC: Dr. You. Dr. Balbuena. - Time Spent With Patient Total time spent is greater than 50% in coordination of care (as documented) at patient's floor/unit and/or counseling patient: 25 - 35 minutes
--- NOTE | 2021-01-25 16:23 | MHC.HEMONCMA ---
Pt present to f/u on anemia. History reviewed and labs drawn.
[2021-01-25 16:25] LABS: Basophils Percent Auto 0.5 % (0-2); Eosinophils Absolute Auto 0.2 X10*3/uL (0.0-0.4); Eosinophils Percent Auto 2.1 % (0-4); Hematocrit 35.7 % (37-47); Hemoglobin 12.3 g/dl (12.0-16.0); Imm Gran Abs Auto 0.01 X10*3/uL (0.00-0.03); Imm Gran Pct Auto 0.1 % (0.0-0.4); Lymphocytes Absolute Auto 2.3 X10*3/uL (1.2-4.9); Lymphocytes Percent Auto 30.2 % (20-40); Mean Corpuscular HGB Conc 34.5 g/dl (31.0-35.0); Mean Corpuscular Hemoglobin 29.6 pg (27.0-33.0); Mean Corpuscular Volume 85.8 fL (80-98); Mean Platelet Volume 10.1 fL (9.4-12.3); Monocytes Absolute Auto 0.4 X10*3/uL (0.1-1.2); Monocytes Percent Auto 5.3 % (2-11); Neutrophils Absolute Auto 4.8 X10*3/uL (2.0-8.3); Neutrophils Percent Auto 61.8 % (45-73); Platelet Count 269 X10*3/uL (160-400); Red Blood Count 4.16 X10*6/uL (4.20-5.50); Red Cell Distribution Width 18.3 % (11.0-16.0); White Blood Count 7.8 X10*3/uL (4.8-10.8)
[2021-01-25 16:39] LABS: Alanine Aminotransferase 17 U/L (0-31); Albumin Level 4.1 g/dL (3.5-5.0); Alkaline Phosphatase 59 U/L (39-117); Anion Gap 11 (12-20); Aspartate Amino Transferase 19 U/L (5-31); Bilirubin Total 0.6 mg/dL (0.0-1.0); Blood Urea Nitrogen 8 mg/dL (9-16); Carbon Dioxide 22 mmol/L (22-29); Chloride 108 mmol/L (96-108); Creatinine Clr Calc Pharmacy 105.7; Estimated Glomerular Filt Rate > 60; Glucose Random 89 mg/dL (60-115); Potassium 3.8 mmol/L (3.3-5.1); Sodium 137 mmol/L (135-145); Total Protein 6.3 g/dL (6.5-8.0)
[2021-01-25 17:44] LABS: Erythrocyte Sedimentation Rate 6 MM/HR (0-20)
--- NOTE | 2021-07-27 17:20 | MHC.HEMONC ---
called pt to reschedule appt. LVM
== END | disposition home or self-care (01) ==
LOC: HO.ONC 10-26 08:41
PROVIDERS: PCP Internal Medicine; Referring Provider Internal Medicine; Visit Provider Internal Medicine Medical Oncology
DX: D50.9 Iron deficiency anemia, unspecified (principal); N92.0 Excessive and frequent menstruation with regular cycle
CPT/HCPCS: 36415; 80053; 82728; 83516; 85025; 85652; 99204; 99214

== ENCOUNTER 2024-06-24 10:20 | Outpatient (REF) | payer OTHER, SELFPAY ==
--- NOTE | ~2024-06-24 | MM_ITS ---
EXAMINATION: MM SCREENING DIGITAL BREAST TOMOSYNTHESIS, BILATERAL CLINICAL INFORMATION: Screening. Asymptomatic. COMPARISON: Mammography: Comparison is made with available priors TECHNIQUE: Digital breast mammography with tomosynthesis is performed in both the craniocaudal and mediolateral oblique views along with computer-aided detection (CAD). FINDINGS: There are scattered areas of fibroglandular density (ACR BI-RADS breast composition Category b). There are no significant masses, abnormal calcifications, or other abnormalities. MM/MM tomosynthesis screening BI IMPRESSION: No mammographic evidence of malignancy. ASSESSMENT: BI-RADS BI-RADS 1 - Negative RECOMMENDATION: Routine annual mammography screening. 1 year F/U This examination should not preclude the clinical evaluation of a suspicious palpable abnormality. This patient's information was entered into a reminder system with a target due date for their next mammogram. Electronically signed by: Shilpa Aponte DO 07/08/2024 09:34 AM EDT
== END 2024-06-24 10:21 | disposition home or self-care (01) ==
LOC: HO.MAMMO 10:20
PROVIDERS: Absent Provider Advanced Practice Midwife; PCP Internal Medicine; Visit Provider Internal Medicine
DX: Z12.31 Encounter for screening mammogram for malignant neoplasm of breast (principal)
CPT/HCPCS: 77063; 77067

== ENCOUNTER → 2024-06-24 10:30 | Outpatient (BNV) | payer OTHER, SELFPAY | PROVIDERS: Absent Provider Advanced Practice Midwife; PCP Internal Medicine; Visit Provider Internal Medicine | DX: Z12.31 Encounter for screening mammogram for malignant neoplasm of breast (principal) | CPT/HCPCS: 77063; 77067 ==

== ENCOUNTER 2024-08-14 13:49 | Outpatient (REF) | payer OTHER, SELFPAY ==
[2024-08-14 15:02] LABS: MANUAL DIFF FLAG NO
[2024-08-14 15:17] LABS: Basophils Percent Auto 0.4 % (0-2); Eosinophils Absolute Auto 0.1 X10*3/uL (0.0-0.4); Eosinophils Percent Auto 1.3 % (0-4); Hematocrit 36.8 % (37.0-47.0); Imm Gran Abs Auto 0.02 X10*3/uL (0.00-0.03); Imm Gran Pct Auto 0.2 % (0.0-0.4); Lymphocytes Absolute Auto 1.9 X10*3/uL (1.2-4.9); Lymphocytes Percent Auto 21.6 % (20-40); Mean Corpuscular HGB Conc 35.3 g/dl (31.0-35.0); Mean Corpuscular Hemoglobin 31.9 pg (27.0-33.0); Mean Corpuscular Volume 90.2 fL (80.0-98.0); Mean Platelet Volume 9.8 fL (9.4-12.3); Monocytes Absolute Auto 0.5 X10*3/uL (0.1-1.2); Monocytes Percent Auto 5.2 % (2-11); Neutrophils Absolute Auto 6.3 x10*3/uL (2.0-8.3); Neutrophils Percent Auto 71.3 % (45-73); Platelet Count 254 X10*3/uL (160-400); Red Blood Count 4.08 X10*6/uL (4.20-5.50); Red Cell Distribution Width 12.9 % (11.0-16.0); White Blood Count 8.9 X10*3/uL (4.8-10.8)
[2024-08-14 15:22] LABS: Appearance Urine Clear; Color Urine Yellow; Glucose Urine UA Negative (Negative); Leukocyte Esterase Urine Negative (Negative); Nitrite Urine Negative (Negative); Specific Gravity - Urine 1.015 (1.005-1.025); Urine Blood Negative (Negative); Urine Ketones Negative (Negative); Urine Protein Negative (Neg-Trace)
[2024-08-14 15:59] LABS: Erythrocyte Sedimentation Rate 10 MM/HR (0-20)
[2024-08-14 16:09] LABS: Alanine Aminotransferase 14 U/L (0-31); Albumin Level 4.1 g/dL (3.5-5.0); Alkaline Phosphatase 53 U/L (39-117); Anion Gap 14 (12-20); Aspartate Amino Transferase 20 U/L (5-31); Bilirubin Total 0.5 mg/dL (0.0-1.0); Blood Urea Nitrogen 15 mg/dL (9-16); C Reactive Protein < 0.10 mg/dL (< or = 0.50); Calcium 9.3 mg/dL (8.4-10.2); Carbon Dioxide 26 mmol/L (22-29); Chloride 105 mmol/L (96-108); Estimated Glomerular Filt Rate > 60; Glucose Random 86 mg/dL (60-115); Potassium 3.9 mmol/L (3.3-5.1); Sodium 141 mmol/L (135-145); Total Protein 6.7 g/dL (6.5-8.0)
[2024-08-14 16:29] LABS: Folate 9.8 ng/mL (> or = 4.0); Vitamin B12 211 pg/mL (200-900)
[2024-08-14 16:31] LABS: Free T4 (Free Thyroxine) 1.19 ng/dL (0.71-1.85); Thyroid Stimulating Hormone 1.55 uIU/mL (0.32-4.0)
== END 2024-08-14 13:50 | disposition home or self-care (01) ==
LOC: HO.LAB 13:49
PROVIDERS: PCP Internal Medicine; Visit Provider Internal Medicine
DX: E03.9 Hypothyroidism, unspecified (principal); H81.4 Vertigo of central origin; R30.0 Dysuria; K21.9 Gastro-esophageal reflux disease without esophagitis
CPT/HCPCS: 36415; 80053; 81003; 82607; 82746; 84439; 84443; 85025; 85652; 86140; 99212

== ENCOUNTER 2024-08-14 13:49 | Outpatient (AMB) | payer OTHER, SELFPAY ==
[2024-08-14 13:52] VITALS: BP 116/62; PULSE 79; O2SAT 98; BMI 26.8
--- NOTE | 2024-08-14 13:52 | A.OFFPC_ITS ---
Vital Signs 08/14/24 13:52 Height 5 ft 4 in Weight 156 lb BMI 26.8 BP 116/62 Blood Pressure Location Lt brachial Position Sitting Pulse 79 Pulse Source Pulse Oximeter Pulse Oximetry (%) 98 Oxygen Delivery Method Room Air Intake Visit Reasons: experiencing a foggy head and feeling weak Intake Note: PT wants work note stating she cannot take flu vaccine. 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 by: Self / Same As Patient Allergies pomegranate Allergy (Severe, Verified 08/14/24 13:52) ANAPHYLAXIS opiates Allergy (Intermediate, Verified 08/14/24 13:52) panic attacks penicillin V Allergy (Intermediate, Verified 08/14/24 13:52) severe yeast infections Penicillins Allergy (Mild, Verified 08/14/24 13:52) RASH Opioids - Morphine Analogues [OPIOIDS-MORPHINE & RELATED] Adverse Reaction (Severe, Verified 08/14/24 13:52) DYSPHORIA AND PANIC ATTACKS Tobacco use date assessed: 01/03/24 Dental Screening Dental Screen Date: 01/03/24 HPI experiencing a foggy head and feeling weak HPI Details 43-year-old overweight female noted 13 l b weight loss hypothyroid generalized anxiety disorder GERD last seen in February 2024. Review of the notes had an upper GI series showing small hiatal hernia mildly thickened appearance of the gastric rugal folds gastritis. occ indicriminated eating. dizzy- vertigo. feeling , does eat and drink good has been exercising. no n no v no fevers, , no palpitations , no b/b sx, no frequency PFSH Medical History Acute gastroenteritis Gastritis and duodenitis Maxillary sinusitis Swelling of left foot Nasal congestion Nausea Low back pain Endometrial thickening on ultrasound Urethral diverticulum Herpes genitalis Anxiety and depression Migraine GERD (gastroesophageal reflux disease) Non-toxic multinodular goiter Shreya's disease Hypothyroidism Lump on face Surgical History H/O colonoscopy Hx of hiatal hernia History of esophagogastroduodenoscopy (EGD) Hx of bilateral salpingectomy Hx of cholecystectomy Family History Father No problems noted. Mother Diabetes mellitus HTN (hypertension) Maternal Uncle Pancreatic cancer Alcohol abuse Maternal Grandfather Diabetes mellitus Maternal Aunt Breast cancer Brother Substance abuse Paternal Grandmother Lung cancer Uterine cancer Other Mental health disorder Social History Housing: House Alcohol intake: never Comment: drank 02/2024 Patient Tobacco Use Status: Former Tobacco user Tobacco use type: Cigarette Years Smoked: quit 2009 e-Cigarette/Vaping Use: Never Used Second Hand Smoke Exposure: No service: No Current occupational status: employed Cognitive needs: No Hearing needs: No Vision needs: No Questionnaire Thrive Questionnaire Date Thrive assessed: 02/25/24 MELISSA-7 AMB Questionnaire MELISSA-7 Date MELISSA - 7 assessed: 02/25/24 Source: Developed by Drs. John Rojas, Miriam Wu, Aayush Del Cid and colleagues, with an educational adelia from [employer]. Physical exam (Primary Care) Vital Signs: Last Vital Signs Pulse 79 08/14/24 13:52 BP 116/62 08/14/24 13:52 Pulse Ox 98 08/14/24 13:52 Oxygen Delivery Method Room Air 08/14/24 13:52 BMI result Body Mass Index 26.8 Tobacco/Smoking Status: Tobacco use Status Tobacco use date assessed 01/03/24 08/14/24 13:57 Patient Tobacco Use Status Former Tobacco user 08/14/24 13:57 Tobacco use type Cigarette 08/14/24 13:57 e-Cigarette/Vaping Use Never Used 08/14/24 13:57 Thrive Assessment: Date of Thrive Assessment Date Thrive assessed 02/25/24 08/14/24 13:57 Const General: alert; No acute distress Eyes Conjunctivae: conjunctivae normal Resp Auscultation: clear to auscultation bilaterally Cardio Rate: regular rate Rhythm: regular rhythm GI Inspection: Yes normal to inspection Extrem General: Yes normal to inspection and No edema Coding Level of Care Code Est Pt Level 4 (79949) Diagnoses Acquired hypothyroidism E03.9 Hypothyroidism type: acquired Gastroesophageal reflux disease without esophagitis K21.9 Esophagitis presence: without esophagitis 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 Assessment & Plan Assessment & Plan (1) Hypothyroidism: Comment: September 2022 Code(s): E03.9 - Hypothyroidism, unspecified Category: Medical Qualifiers: Hypothyroidism type: acquired Qualified Code(s): E03.9 - Hypothyroidism, unspecified Plan: Continue with thyroid medication will advised retesting (2) GERD (gastroesophageal reflux disease): Code(s): K21.9 - Gastro-esophageal reflux disease without esophagitis Category: Medical Qualifiers: Esophagitis presence: without esophagitis Qualified Code(s): K21.9 - Gastro-esophageal reflux disease without esophagitis Plan: Avoid the foods that causes that usually spicy foods, tomato products, juices, coffee, soda and foods that your sensitive to. After eating do not lie down, allow 3-4 hours before in lie down. And keep the head of bed above 30 degrees to avoid the acid from going up. (3) Vertigo of central origin: Code(s): H81.4 - Vertigo of central origin Category: Medical Plan: will work up. Orders: Orders Thyroid Stimulating Hormone Today H81.4 - Vertigo of central origin Erythrocyte Sedimentation Rate Today H81.4 - Vertigo of central origin Complete Blood Count Auto Diff Today H81.4 - Vertigo of central origin Comprehensive Met. Panel Today H81.4 - Vertigo of central origin UA CC w/rflx Micro + Cult Today H81.4 - Vertigo of central origin, R30.0 - Dysuria Free T4 (Free Thyroxine) Today H81.4 - Vertigo of central origin Vitamin B12 and Folate Today H81.4 - Vertigo of central origin C Reactive Protein Today H81.4 - Vertigo of central origin
== END 2024-08-14 14:44 | disposition home or self-care (01) ==
LOC: HO.HMCH 13:50
PROVIDERS: PCP Internal Medicine; Visit Provider Internal Medicine
DX: E03.9 Hypothyroidism, unspecified (principal); K21.9 Gastro-esophageal reflux disease without esophagitis; H81.4 Vertigo of central origin

== ENCOUNTER 2024-09-22 09:16 | Outpatient (AMB) | payer OTHER, SELFPAY ==
[2024-09-22 09:24] VITALS: BP 112/68; PULSE 76; O2SAT 98; BMI 27.7
--- NOTE | 2024-09-22 09:24 | MHC.OFFVIS ---
Vital Signs 09/22/24 09:24 Height 5 ft 4 in Weight 161 lb 6.054 oz BMI 27.7 BP 112/68 Blood Pressure Location Lt brachial Position Sitting Pulse 76 Pulse Source Pulse Oximeter Pulse Oximetry (%) 98 Oxygen Delivery Method Room Air Intake Visit Reasons: 6 mos FUV. Intake Note: ESTABLISHED PATIENT Candice presents in office today for a scheduled 6 mos FUV. Labs and diagnostics done since last visit. Meds reviewed? Y Allergies reviewed? Y No recent surgeries? None Any significant concerns or new changes? Pt states that the famotidine has been helping and allows her to reintroduce certain foods. Pt still reporting chronic sx (bloating, distention, pain w/ trigger foods. Pt has been avoiding triggers as much as possible [IE Alcohol]) Pharmacy verified? [facility] Perfume Maker Required: No Allergies pomegranate Allergy (Severe, Verified 10/02/24 11:38) ANAPHYLAXIS opiates Allergy (Intermediate, Verified 10/02/24 11:38) panic attacks penicillin V Allergy (Intermediate, Verified 10/02/24 11:38) severe yeast infections Penicillins Allergy (Mild, Verified 10/02/24 11:38) RASH Opioids - Morphine Analogues [OPIOIDS-MORPHINE & RELATED] Adverse Reaction (Severe, Verified 10/02/24 11:38) DYSPHORIA AND PANIC ATTACKS HPI HPI 6 mos FUV.: Details: LAST VISIT: Tubular adenoma of colon GERD (gastroesophageal reflux disease) Chronic idiopathic constipation Plan Epigastric pain not always related to food. Patient will go for upper GI series to rule out reflux. Check for hernia. Patient will try to work out slow. Continue rabeprazole daily. Avoid dietary triggers and late night snacking. Staying upright for minimum 3 hours after meals discussed with patient. Tubular adenoma found without high-grade dysplasia or carcinoma. Colonoscopy will be repeated in 5 years, sooner on as needed basis. Patient will follow-up in the office in 6 months. Patient is agreeable to this plan and verbalizes understanding of instructions. She was given the opportunity to ask questions and all questions answered. ? Thank you for allowing me to participate in her care Orders Orders [place] upper GI series 04/02/24 K21.9 TODAY'S VISIT Patient is here today for follow-up and to discuss upper GI series results. Patient reports to be feeling better. Continues taking rabeprazole in the morning and famotidine at bedtime. Patient also reports that she is trying to avoid dietary triggers. States that she is eating healthier. Upper GI series was done back in April and showed possible gastritis, however patient has been taking famotidine at bedtime. Denies any epigastric pain postprandially. Patient denies any dyspepsia, dysphagia or odynophagia. Reports to be feeling better as long as she is avoiding dietary triggers. [facility] Medical History Acute gastroenteritis Gastritis and duodenitis Maxillary sinusitis Swelling of left foot Nasal congestion Nausea Low back pain Endometrial thickening on ultrasound Urethral diverticulum Herpes genitalis Anxiety and depression Migraine GERD (gastroesophageal reflux disease) Non-toxic multinodular goiter Shreya's disease Hypothyroidism Lump on face Surgical History H/O colonoscopy Hx of hiatal hernia History of esophagogastroduodenoscopy (EGD) Hx of bilateral salpingectomy Hx of cholecystectomy Family History Father No problems noted. Mother Diabetes mellitus HTN (hypertension) Maternal Uncle Pancreatic cancer Alcohol abuse Maternal Grandfather Diabetes mellitus Maternal Aunt Breast cancer Brother Substance abuse Paternal Grandmother Lung cancer Uterine cancer Other Mental health disorder Social History Housing: House Alcohol intake: never Comment: drank 02/2024 Patient Tobacco Use Status: Former Tobacco user Tobacco use type: Cigarette Years Smoked: quit 2009 e-Cigarette/Vaping Use: Never Used Second Hand Smoke Exposure: Yes service: No Current occupational status: employed Cognitive needs: No Hearing needs: No Vision needs: No Review of Systems Const Denies weight gain and Denies weight loss ENT Reports no additional complaints, Denies dysphagia and Denies odynophagia Card Reports no additional complaints Resp Reports no additional complaints GI Reports abdominal pain, Denies belching, Denies melena, Denies bloating, Denies change in bowel habits, Reports constipation (occasional), Denies dysphagia, Denies excessive flatus, Denies dyspepsia, Denies heartburn, Denies diarrhea, Denies loose stools, Denies nausea, Denies odynophagia and Denies vomiting Reports no additional complaints Musc Reports no additional complaints Neuro Reports no additional complaints Psych Reports no additional complaints Endo Reports no additional complaints Physical Exam Vital Signs: Last Vital Signs Pulse 76 09/22/24 09:24 BP 112/68 09/22/24 09:24 Pulse Ox 98 09/22/24 09:24 Oxygen Delivery Method Room Air 09/22/24 09:24 BMI result Body Mass Index 27.7 Const General: healthy appearing and no acute distress Nutritional Appearance: obese Orientation/consciousness: patient oriented x3 Resp Effort & Inspection: normal respiratory effort, able to speak in complete sentences, no tracheal deviation and symmetric chest movement Auscultation: clear to auscultation bilaterally Cardio Rate: regular rate GI Inspection: Yes normal to inspection, No distended and Yes obesity Palpation (GI): Soft to palpation, not firm, nontender and No hepatosplenomegaly present Auscultation: normal bowel sounds General: Yes no CVA tenderness Back/Spine/Pelvis Back: no CVA tenderness Skin General skin exam: elasticity normal, turgor normal and dry skin Neuro General: patient oriented x3 Psych Appearance: grossly normal Mental Status: mental status grossly normal Results Reviewed Results Reviewed: UPPER GI SERIES IMPRESSION: 1. Small type I hiatal hernia. 2. Mildly thickened appearance of the gastric rugal folds, which can suggest underlying gastritis. 3. Previous cholecystectomy. Laboratory Tests 08/14/24 15:01 Total Bilirubin 0.5 AST 20 ALT 14 C-Reactive Protein < 0.10 Total Protein 6.7 Albumin 4.1 Vitamin B12 211 Folate 9.8 Assessment & Plan Assessment & Plan (1) GERD (gastroesophageal reflux disease): Code(s): K21.9 - Gastro-esophageal reflux disease without esophagitis Category: Medical Qualifiers: Esophagitis presence: without esophagitis Qualified Code(s): K21.9 - Gastro-esophageal reflux disease without esophagitis (2) Chronic idiopathic constipation: Code(s): K59.04 - Chronic idiopathic constipation Plan Continue current treatment with rabeprazole and famotidine, however will try to wean her off. Will need to check magnesium levels. Avoid dietary triggers and late night snacking. Staying upright for minimum 3 hours after meals discussed with patient. Follow-up in 6 months, sooner on as needed basis. Coding Level of Care Code Est Pt Level 4 (38287) Complex EM visit Add On G2211 Diagnoses Gastroesophageal reflux disease without esophagitis K21.9 Esophagitis presence: without esophagitis Chronic idiopathic constipation K59.04 Time Spent (min) 35 Comment 20 minutes spent with patient and additional 15 minutes spent reviewing her records
== END 2024-09-22 10:30 | disposition home or self-care (01) ==
PROVIDERS: PCP Internal Medicine; Visit Provider Nurse Practitioner Family
DX: K21.9 Gastro-esophageal reflux disease without esophagitis (principal); K59.04 Chronic idiopathic constipation
CPT/HCPCS: 99214; G2211

== ENCOUNTER → 2024-09-22 09:16 | Outpatient (BNVA) | payer OTHER, SELFPAY | PROVIDERS: PCP Internal Medicine; Visit Provider Nurse Practitioner Family | DX: K21.9 Gastro-esophageal reflux disease without esophagitis (principal); K59.04 Chronic idiopathic constipation; Z71.2 Person consulting for explanation of examination or test findings | CPT/HCPCS: 99212 ==

== ENCOUNTER 2024-10-02 11:13 | Outpatient (AMB) | payer OTHER, SELFPAY ==
--- NOTE | 2024-10-02 11:37 | A.OFFPC_ITS ---
Vital Signs 10/02/24 11:38 Height 5 ft 4 in Weight 159 lb 2 oz BMI 27.3 BP 110/68 Blood Pressure Location Lt brachial Position Sitting Pulse 56 Pulse Source Pulse Oximeter Pulse Oximetry (%) 98 Oxygen Delivery Method Room Air Intake Visit Reasons: Patient Fall , leg pain Intake Note: Patient is here to follow up on fall and right hip pain radiating down. Health Safety Specialist Required: No Tmd Teacher Assistant: Present Allergies pomegranate Allergy (Severe, Verified 10/02/24 11:38) ANAPHYLAXIS opiates Allergy (Intermediate, Verified 10/02/24 11:38) panic attacks penicillin V Allergy (Intermediate, Verified 10/02/24 11:38) severe yeast infections Penicillins Allergy (Mild, Verified 10/02/24 11:38) RASH Opioids - Morphine Analogues [OPIOIDS-MORPHINE & RELATED] Adverse Reaction (Severe, Verified 10/02/24 11:38) DYSPHORIA AND PANIC ATTACKS Tobacco use date assessed: 10/02/24 Dental Screening Dental Screen Date: 01/03/24 HPI Patient Fall , leg pain HPI Details The patient is a 44-year-old female presenting with concerns related to low Serum Vitamin B12 levels, chest pain, ear congestion, and low energy. The Vitamin B12 deficiency has been a chronic issue, with past blood work confirming consistently low levels. The patient has been experiencing chest pain for approximately one month, which is located on the left side and radiated from the sternum to the ribs. The pain worsens with movements such as twisting and is aggravated by getting in and out of a car. There was no history of trauma or injury associated with the onset of pain. Additionally, the patient reports persistent low energy levels and associated mild depressive symptoms that have emerged possibly due to insufficient Vitamin B12 absorption. She related a history of taking oral Vitamin B12 supplements which may have been ineffective due to concurrent use of Rabeprazole, which can hinder Vitamin B12 absorption. Furthermore, the patient reported bilateral ear congestion, which is aggravated by lying down. Past use of Zyrtec has been effective in managing similar symptoms. There is also a notation of patient-reported normal thyroid function with no abnormalities detected in previous tests. [facility], [facility] Medical History Acute gastroenteritis Gastritis and duodenitis Maxillary sinusitis Swelling of left foot Nasal congestion Nausea Low back pain Endometrial thickening on ultrasound Urethral diverticulum Herpes genitalis Anxiety and depression Migraine GERD (gastroesophageal reflux disease) Non-toxic multinodular goiter Shreya's disease Hypothyroidism Lump on face Surgical History H/O colonoscopy Hx of hiatal hernia History of esophagogastroduodenoscopy (EGD) Hx of bilateral salpingectomy Hx of cholecystectomy Family History Father No problems noted. Mother Diabetes mellitus HTN (hypertension) Maternal Uncle Pancreatic cancer Alcohol abuse Maternal Grandfather Diabetes mellitus Maternal Aunt Breast cancer Brother Substance abuse Paternal Grandmother Lung cancer Uterine cancer Other Mental health disorder Social History Housing: House Alcohol intake: never Comment: drank 02/2024 Patient Tobacco Use Status: Former Tobacco user Tobacco use type: Cigarette Years Smoked: quit 2009 e-Cigarette/Vaping Use: Never Used Second Hand Smoke Exposure: Yes service: No Current occupational status: employed Cognitive needs: No Hearing needs: No Vision needs: No Questionnaire Thrive Questionnaire Date Thrive assessed: 02/25/24 MELISSA-7 AMB Questionnaire MELISSA-7 Date MELISSA - 7 assessed: 02/25/24 Source: Developed by Drs. John Rojas, Miriam Wu, Aayush Del Cid and colleagues, with an educational adelia from [employer]. Physical exam (Primary Care) Vital Signs: Last Vital Signs Pulse 56 10/02/24 11:38 BP 110/68 10/02/24 11:38 Pulse Ox 98 10/02/24 11:38 Oxygen Delivery Method Room Air 10/02/24 11:38 BMI result Body Mass Index 27.3 Tobacco/Smoking Status: Tobacco use Status Tobacco use date assessed 10/02/24 10/02/24 11:43 Patient Tobacco Use Status Former Tobacco user 10/02/24 11:43 Tobacco use type Cigarette 10/02/24 11:43 e-Cigarette/Vaping Use Never Used 10/02/24 11:43 tender on the lateral hip area no swelling no redness, no knee pain Thrive Assessment: Date of Thrive Assessment Date Thrive assessed 02/25/24 10/02/24 11:43 Const General: alert; No acute distress Eyes Conjunctivae: conjunctivae normal Resp Auscultation: clear to auscultation bilaterally Cardio Rate: regular rate Rhythm: regular rhythm GI Inspection: Yes normal to inspection Extrem General: Yes normal to inspection and No edema Coding Level of Care Code Est Pt Level 4 (61599) Diagnoses Vitamin B 12 deficiency E53.8 Generalized anxiety disorder F41.1 Acquired hypothyroidism E03.9 Hypothyroidism type: acquired Trochanteric bursitis of right hip M70.61 Seasonal allergic rhinitis, unspecified trigger J30.2 Allergic rhinitis trigger: unspecified Allergic rhinitis seasonality: seasonal Assessment & Plan Assessment & Plan (1) Vitamin B 12 deficiency: Code(s): E53.8 - Deficiency of other specified B group vitamins Category: Medical (2) Generalized anxiety disorder: Comment: Therapy in [facility] in [place]- Code(s): F41.1 - Generalized anxiety disorder Category: Medical Plan: still having counselling (3) Hypothyroidism: Comment: September 2022 Code(s): E03.9 - Hypothyroidism, unspecified Category: Medical Qualifiers: Hypothyroidism type: acquired Qualified Code(s): E03.9 - Hypothyroidism, unspecified (4) Trochanteric bursitis of right hip: Code(s): M70.61 - Trochanteric bursitis, right hip Category: Medical Plan: send for PT (5) Allergic rhinitis: Code(s): J30.9 - Allergic rhinitis, unspecified Category: Medical Qualifiers: Allergic rhinitis trigger: unspecified Allergic rhinitis seasonality: seasonal Qualified Code(s): J30.2 - Other seasonal allergic rhinitis Plan - Administer Vitamin injections to effectively manage deficiency. Educate patient on frequency and benefit over oral supplements due to current medication interference. - Recommend physical therapy to manage musculoskeletal chest pain, monitor response to NSAIDs like Advil taken with food, and address any exacerbation in symptoms. - Continue allergy medication such as Zyrtec for ear congestion and discuss potential causes of symptoms with an emphasis on regular usage to manage allergic rhinitis. - Address mild depression and low energy by alleviating underlying Vitamin deficiency, and monitor depressive symptoms over time. - No action required for thyroid function as it is within normal limits. - Schedule follow-up visits to assess treatment efficacy and any additional concerns. Orders: Orders PT Evaluation and Treatment Today M70.61 - Trochanteric bursitis, right hip Medications: New insulin syringe-needle U-100 (BD Insulin Syringe Ultra-Fine) As directed 100 ea 0RF E53.8 - Deficiency of other specified B group vitamins cyanocobalamin (vitamin B-12) once a week x 4 weeks then once a month 1,000 mcg IM DAILY 1 week 10 mL 0RF E53.8 - Deficiency of other specified B group vitamins
[2024-10-02 11:38] VITALS: BP 110/68; PULSE 56; O2SAT 98; BMI 27.3
== END 2024-10-02 12:11 | disposition home or self-care (01) ==
PROVIDERS: PCP Internal Medicine; Visit Provider Internal Medicine
DX: E53.8 Deficiency of other specified B group vitamins (principal); F41.1 Generalized anxiety disorder; E03.9 Hypothyroidism, unspecified; M70.61 Trochanteric bursitis, right hip; J30.2 Other seasonal allergic rhinitis

== ENCOUNTER → 2024-10-02 11:13 | Outpatient (BNVA) | payer OTHER, SELFPAY | PROVIDERS: PCP Internal Medicine; Visit Provider Internal Medicine | DX: R53.83 Other fatigue (principal); E53.8 Deficiency of other specified B group vitamins; F41.1 Generalized anxiety disorder; E03.9 Hypothyroidism, unspecified; M70.61 Trochanteric bursitis, right hip; J30.2 Other seasonal allergic rhinitis | CPT/HCPCS: 99212 ==

== ENCOUNTER 2024-10-27 08:03 | Emergency (ER) | payer OTHER, SELFPAY ==
[2024-10-27 08:10] VITALS: BP 119/66; PULSE 80; RESP 16; TEMP 37.5; O2SAT 100; BMI 27.5
[2024-10-27 08:30] LABS: MANUAL DIFF FLAG NO
[2024-10-27 08:39] LABS: IDNOW Serial# 58CA691E; Strep A Nucleic Acid Negative (Negative)
[2024-10-27 08:42] LABS: Basophils Percent Auto 0.6 % (0-2); Eosinophils Absolute Auto 0.1 X10*3/uL (0.0-0.4); Hematocrit 36.9 % (37.0-47.0); Hemoglobin 13.3 g/dl (12.0-16.0); Imm Gran Abs Auto 0.02 X10*3/uL (0.00-0.03); Imm Gran Pct Auto 0.3 % (0.0-0.4); Lymphocytes Absolute Auto 0.4 X10*3/uL (1.2-4.9); Lymphocytes Percent Auto 7.1 % (20-40); Mean Corpuscular Hemoglobin 32.8 pg (27.0-33.0); Mean Corpuscular Volume 90.9 fL (80.0-98.0); Mean Platelet Volume 9.7 fL (9.4-12.3); Monocytes Absolute Auto 0.4 X10*3/uL (0.1-1.2); Monocytes Percent Auto 6.3 % (2-11); Neutrophils Absolute Auto 5.3 x10*3/uL (2.0-8.3); Neutrophils Percent Auto 84.7 % (45-73); Platelet Count 184 X10*3/uL (160-400); Red Blood Count 4.06 X10*6/uL (4.20-5.50); Red Cell Distribution Width 12.7 % (11.0-16.0); White Blood Count 6.2 X10*3/uL (4.8-10.8)
[2024-10-27 08:47] LABS: Alanine Aminotransferase 19 U/L (0-31); Alkaline Phosphatase 56 U/L (39-117); Anion Gap 10 (12-20); Aspartate Amino Transferase 29 U/L (5-31); Bilirubin Total 0.5 mg/dL (0.0-1.0); Blood Urea Nitrogen 7 mg/dL (9-16); Calcium 8.8 mg/dL (8.4-10.2); Carbon Dioxide 27 mmol/L (22-29); Chloride 108 mmol/L (96-108); Creatinine Clr Calc Pharmacy 91.5; Estimated Glomerular Filt Rate > 60; Glucose Random 97 mg/dL (60-115); Potassium 4.1 mmol/L (3.3-5.1); Sodium 141 mmol/L (135-145); Total Protein 6.3 g/dL (6.5-8.0)
[2024-10-27 13:29] LABS: Influenza A PCR POSITIVE (Negative); Influenza B PCR NEGATIVE (Negative); Resp Syncy Virus RNA Qual PCR NEGATIVE (Negative); SARS COV2 PCR INHOUSE NEGATIVE (Negative)
--- NOTE | 2024-10-27 13:34 | ED.GENADULT ---
HPI - General Adult General Chief complaint: Nausea/Vomiting/Diarrhea Stated complaint: body aches vomiting Time Seen by Provider: 10/27/24 13:33 Source: patient, RN notes reviewed and old records reviewed Mode of arrival: ambulatory Limitations: no limitations History of Present Illness ED Provider: Ewelina HPI narrative: Patient is a 44-year-old female history of hypothyroidism, Shreya's, GERD, migraines, anxiety presenting to the emergency department with complaint of nausea and vomiting since this morning, chills, headache, body aches. Known sick contacts. Denies any abdominal pain, diarrhea, constipation. Denies any chest pain or palpitations. States all symptoms began yesterday. Denies hematemesis. MD complaint: vomiting, body aches Onset (ago): day(s) Treatments prior to arrival: none Related Data Home Medications ?Medication ?Instructions ?Recorded ?Confirmed cholecalciferol (vitamin D3) 25 25 mcg PO DAILY 08/23/20 02/25/24 mcg (1,000 unit) capsule Lactobacillus acidoph-L.bulgaricus 2 tab PO BID 04/02/24 1 million cell tablet valacyclovir 500 mg tablet 500 mg PO BID 04/02/24 Previous Rx's ?Medication ?Instructions ?Recorded trazodone 50 mg tablet 50 mg PO BEDTIME PRN sleep #90 tabs 09/03/23 cetirizine 10 mg tablet (Zyrtec) 10 mg PO DAILY PRN allergy 03/11/24 symptoms #90 tabs famotidine 40 mg tablet 40 mg PO BEDTIME #30 tabs 09/02/24 rabeprazole 20 mg tablet,delayed 20 mg PO DAILY #90 tabs 09/03/24 release levothyroxine 100 mcg tablet 100 mcg PO DAILY 30 days #90 tabs 09/18/24 insulin syringe-needle U-100 1 mL #100 ea 10/02/24 31 gauge x 5/16 (BD Insulin Syringe Ultra-Fine) cyanocobalamin (vitamin B-12) 1,000 mcg IM DAILY 1 week #10 mL 10/16/24 1,000 mcg/mL injection solution ondansetron 4 mg disintegrating 4 mg PO Q8H PRN nausea and 10/27/24 tablet vomiting #10 tabs oseltamivir 75 mg capsule 75 mg PO BID 5 days #10 caps 10/27/24 Allergies Allergy/AdvReac Type Severity Reaction Status Date / Time pomegranate Allergy Severe ANAPHYLAXIS Verified 10/27/24 08:10 opiates Allergy Intermediate panic Verified 10/27/24 08:10 attacks penicillin V Allergy Intermediate severe Verified 10/27/24 08:10 yeast infections Penicillins Allergy Mild RASH Verified 10/27/24 08:10 Opioids - Morphine Analogues AdvReac Severe DYSPHORIA Verified 10/27/24 08:10 [OPIOIDS-MORPHINE & RELATED] AND PANIC ATTACKS Review of Systems Review of Systems: As per HPI Yes all other systems are reviewed and are negative Constitutional: Constitutional: Reports as per HPI [facility] Past Medical History Medical History Acute gastroenteritis Gastritis and duodenitis Maxillary sinusitis Swelling of left foot Nasal congestion Nausea Low back pain Endometrial thickening on ultrasound Urethral diverticulum Herpes genitalis Anxiety and depression Migraine GERD (gastroesophageal reflux disease) Non-toxic multinodular goiter Shreya's disease Hypothyroidism Lump on face Surgical History H/O colonoscopy Hx of hiatal hernia History of esophagogastroduodenoscopy (EGD) Hx of bilateral salpingectomy Hx of cholecystectomy Family History Family History Father No problems noted. Mother Diabetes mellitus HTN (hypertension) Maternal Uncle Pancreatic cancer Alcohol abuse Maternal Grandfather Diabetes mellitus Maternal Aunt Breast cancer Brother Substance abuse Paternal Grandmother Lung cancer Uterine cancer Other Mental health disorder Social History Social History Housing: House Alcohol intake: never Comment: drank 02/2024 Patient Tobacco Use Status: Former Tobacco user Tobacco use type: Cigarette Years Smoked: quit 2009 e-Cigarette/Vaping Use: Never Used Second Hand Smoke Exposure: Yes Advance Directives: No Advance Directives Information Provided: Yes Do you have a plan to hurt others: No Plan service: No Current occupational status: employed Cognitive needs: No Hearing needs: No Vision needs: No Physical Exam ED Vital Signs: Vital Signs - 24 hr 10/27/24 08:10 Temperature 99.5 F Pulse Rate 80 Respiratory Rate 16 Blood Pressure 119/66 Pulse Oximetry 100 Oxygen Delivery Method Room Air BMI result Body Mass Index 27.5 Vital signs have been reviewed and appear to be correct. Blood pressure normal. Heart rate normal. Respiratory rate normal. Temperature normal. Oxygen saturation normal. Const General: cooperative and no acute distress Orientation/consciousness: oriented to person, oriented to place, oriented to time and patient oriented x3 Limitations: no limitations HENMT Head: Yes normocephalic and Yes atraumatic Ears: external ears normal General nose exam: Normal external nose present Face and sinus: Yes face symmetric Mouth: oropharynx normal and moist mucous membranes Throat: Yes uvula midline Eyes Pupils: Equal, round and reactive pupils present Neck Neck: Yes normal visual inspection and Yes supple Resp Effort & Inspection: normal respiratory effort and able to speak in complete sentences Auscultation: clear to auscultation bilaterally Cardio Rate: regular rate Rhythm: regular rhythm Heart sounds: S1 normal heart sound present and S2 normal heart sound present GI Palpation (GI): Soft to palpation and nontender Auscultation: normoactive bowel sounds General: Yes no CVA tenderness Back/Spine/Pelvis Back: no CVA tenderness Skin General skin exam: elasticity normal and turgor normal Neuro General: oriented to person, oriented to place, oriented to time, patient oriented x3, moves all extremities, no focal motor deficits and CN's II-XI intact bilaterally Cranial nerves: Yes Equal, round and reactive pupils present Cognition (Neuro): normal cognition Extrem General: Yes full ROM, Yes no pedal edema and Yes no calf tenderness Psych Mental Status: mental status grossly normal Affect: normal affect Thought process: Normal thought process present Medical Decision Making Medical Decision Making MDM Narrative: Patient is a 44-year-old female history of hypothyroidism, Shreya's, GERD, migraines, anxiety presenting to the emergency department with complaint of nausea and vomiting since this morning, chills, headache, body aches. On exam patient is awake, A+Ox3, VS WNL, afebrile, normal neurological exam without focal deficits, physical exam findings as above. Given reported symptoms and physical exam findings, initial differential includes but is not limited to viral illness, Covid, flu, RSV. Labs unremarkable. Viral serology positive for influenza A. Patient updated on results and all questions answered. Patient requesting treatment with Tamiflu, will send prescription as well as prescription for Zofran for nausea and vomiting. Isolation precautions discussed with patient. Follow-up with PCP as needed. Return precautions discussed at bedside. Patient verbalized understanding of and agreement with plan. Differential Diagnosis Differential Diagnoses: The differential diagnosis associated with the presentation includes As per [facility] Admission/Observation Consideration of admission/observation: Escalation of care including admission/observation considered Patient would have been admitted to the hospital had their work up had any findings where hospital admission was appropriate and their clinical presentation warranted hospital admission. Lab Data [facility] Lab Attestation statement: I reviewed the patient's lab results. As per [facility] 10/27/24 08:23 10/27/24 08:23 Labs: Lab Results 10/27/24 Range/Units 08:23 WBC 6.2 (4.8-10.8) X10*3/uL RBC 4.06 L (4.20-5.50) X10*6/uL Hgb 13.3 (12.0-16.0) g/dl Hct 36.9 L (37.0-47.0) % MCV 90.9 (80.0-98.0) fL MCH 32.8 (27.0-33.0) pg MCHC 36.0 H (31.0-35.0) g/dl RDW 12.7 (11.0-16.0) % Plt Count 184 D (160-400) X10*3/uL MPV 9.7 (9.4-12.3) fL Immature Gran % (Auto) 0.3 (0.0-0.4) % Neut % (Auto) 84.7 H (45-73) % Lymph % (Auto) 7.1 L (20-40) % [place] % (Auto) 6.3 (2-11) % Eos % (Auto) 1.0 (0-4) % Baso % (Auto) 0.6 (0-2) % Lymph # (Auto) 0.4 L (1.2-4.9) X10*3/uL [place] # (Auto) 0.4 (0.1-1.2) X10*3/uL Eos # (Auto) 0.1 (0.0-0.4) X10*3/uL Baso # (Auto) 0.0 (0.0-0.2) X10*3/uL Abs Immat Gran (auto) 0.02 (0.00-0.03) X10*3/uL Absolute Neuts (auto) 5.3 (2.0-8.3) x10*3/uL Absolute Nucleated RBC 0.000 (0.0-0.012) X10*3/uL Nucleated RBC % (auto) 0.0 (0.0-0.2) /100WBC Sodium 141 (135-145) mmol/L Potassium 4.1 (3.3-5.1) mmol/L Chloride 108 (96-108) mmol/L Carbon Dioxide 27 (22-29) mmol/L Anion Gap 10 L (12-20) BUN 7 L (9-16) mg/dL Creatinine 0.75 (0.5-1.4) mg/dL Estim Creat Clear Calc 91.5 Estimated GFR > 60 Random Glucose 97 (60-115) mg/dL Calcium 8.8 (8.4-10.2) mg/dL Total Bilirubin 0.5 (0.0-1.0) mg/dL AST 29 (5-31) U/L ALT 19 (0-31) U/L Alkaline Phosphatase 56 (39-117) U/L Total Protein 6.3 L (6.5-8.0) g/dL Albumin 4.0 (3.5-5.0) g/dL Influenza Type A (PCR) POSITIVE A (Negative) Influenza Type B (PCR) NEGATIVE (Negative) RSV RNA Qual (PCR) NEGATIVE (Negative) SARS-CoV-2 RNA (RT-PCR) NEGATIVE (Negative) S. pyogenes GrpA LIANET Negative (Negative) External Record Review External record reviewed: Inpatient record, Office record and Outpatient record Prescription Management I considered prescription management with: Antiviral and Other Discharge Plan Discharge Clinical Impression: Influenza A Patient Disposition: Home, Self-Care Instructions: Oseltamivir (By mouth), Influenza (DC), Flu Shot (Vaccine) for Adults (ED), Droplet Precautions (ED) Additional Instructions: You were evaluated in the emergency department today for nausea, vomiting, and fever. Your flu test was positive. You should isolate at home for another 4 days and continue to wear mask or symptomatic after that. You are being treated with Tamiflu. Your symptoms should resolve over time with rest and fluids. You are also being prescribed ondansetron which you can take every 8 hours as needed for nausea. You can take 650 mg Tylenol or 600 mg ibuprofen every 6 hours as needed for fever or pain. Please follow-up with your primary care provider for any ongoing symptoms. Return to the emergency department if you develop worsening pain, fever not controlled with Tylenol and ibuprofen, chest pain, dizziness or lightheadedness, or any other concerning symptoms. Prescriptions: New ondansetron 4 mg tablet,disintegrating 4 mg PO Q8H PRN (Reason: nausea and vomiting) Qty: 10 0RF oseltamivir 75 mg capsule 75 mg PO BID 5 Days Qty: 10 0RF No Action trazodone 50 mg tablet 50 mg PO BEDTIME PRN (Reason: sleep) Qty: 90 0RF cetirizine [Zyrtec] 10 mg tablet 10 mg PO DAILY PRN (Reason: allergy symptoms) Qty: 90 2RF famotidine 40 mg tablet 40 mg PO BEDTIME Qty: 30 3RF rabeprazole 20 mg tablet,delayed release (DR/EC) 20 mg PO DAILY Qty: 90 0RF levothyroxine 100 mcg tablet 100 mcg PO DAILY 30 Days Qty: 90 1RF cyanocobalamin (vitamin B-12) 1,000 mcg/mL solution 1,000 mcg IM DAILY 7 Days Qty: 10 0RF Rx Instructions: once a week x 4 weeks then once a month cholecalciferol (vitamin D3) 25 mcg (1,000 unit) capsule 25 mcg PO DAILY valacyclovir 500 mg tablet 500 mg PO BID Lactobacillus acidoph-L.bulgar 1 million cell tablet 2 tab PO BID (DME) insulin syringe-needle U-100 [BD Insulin Syringe Ultra-Fine] 1 mL 31 gauge x 5/16 syringe See Rx Instructions .Route Qty: 100 0RF Rx Instructions: As directed Stand Alone Forms: Work/School Release Print Language: Danish
== END 2024-10-27 13:50 | disposition home or self-care (01) ==
PROVIDERS: Emergency Provider Emergency Medicine; PCP Internal Medicine
DX: J10.1 Influenza due to other identified influenza virus with other respiratory manifestations (principal); R11.2 Nausea with vomiting, unspecified; R51.9 Headache, unspecified; Z87.891 Personal history of nicotine dependence; Z03.818 Encounter for observation for suspected exposure to other biological agents ruled out
CPT/HCPCS: 0241U; 80053; 85025; 87651; 99281; 99283

== ENCOUNTER 2024-12-05 14:30 | Outpatient (AMB) | payer OTHER, SELFPAY ==
--- NOTE | 2024-12-05 14:31 | A.OFFPC_ITS ---
Intake Visit Reasons: ? Sinus Infection Allergies pomegranate Allergy (Severe, Verified 12/05/24 14:31) ANAPHYLAXIS opiates Allergy (Intermediate, Verified 12/05/24 14:31) panic attacks penicillin V Allergy (Intermediate, Verified 12/05/24 14:31) severe yeast infections Penicillins Allergy (Mild, Verified 12/05/24 14:31) RASH Opioids - Morphine Analogues [OPIOIDS-MORPHINE & RELATED] Adverse Reaction (Severe, Verified 12/05/24 14:31) DYSPHORIA AND PANIC ATTACKS Tobacco use date assessed: 12/05/24 Dental Screening Dental Screen Date: 12/05/24 Did you have a dental visit in the last 12 months?: Yes Did you have a dental problem in the last 6 months where you did not have access to dental care?: No Was dental information given to patient?: Patient has dentist [facility] Medical History Acute gastroenteritis Gastritis and duodenitis Maxillary sinusitis Swelling of left foot Nasal congestion Nausea Low back pain Endometrial thickening on ultrasound Urethral diverticulum Herpes genitalis Anxiety and depression Migraine GERD (gastroesophageal reflux disease) Non-toxic multinodular goiter Shreya's disease Hypothyroidism Lump on face Surgical History H/O colonoscopy Hx of hiatal hernia History of esophagogastroduodenoscopy (EGD) Hx of bilateral salpingectomy Hx of cholecystectomy Family History Father No problems noted. Mother Diabetes mellitus HTN (hypertension) Maternal Uncle Pancreatic cancer Alcohol abuse Maternal Grandfather Diabetes mellitus Maternal Aunt Breast cancer Brother Substance abuse Paternal Grandmother Lung cancer Uterine cancer Other Mental health disorder Social History Housing: House Alcohol intake: never Comment: drank 02/2024 Patient Tobacco Use Status: Former Tobacco user Tobacco use type: Cigarette Years Smoked: quit 2009 e-Cigarette/Vaping Use: Never Used Second Hand Smoke Exposure: Yes service: No Current occupational status: employed Cognitive needs: No Hearing needs: No Vision needs: No Questionnaire Thrive Questionnaire Date Thrive assessed: 05/13/24 MELISSA-7 AMB Questionnaire MELISSA-7 Date MELISSA - 7 assessed: 02/25/24 Source: Developed by Drs. John Rojas, Miriam Wu, Aayush Del Cid and colleagues, with an educational adelia from [employer]. Physical exam (Primary Care) Tobacco/Smoking Status: Tobacco use Status Tobacco use date assessed 12/05/24 12/05/24 14:31 Patient Tobacco Use Status Former Tobacco user 12/05/24 14:31 Tobacco use type Cigarette 12/05/24 14:31 e-Cigarette/Vaping Use Never Used 12/05/24 14:31 Thrive Assessment: Date of Thrive Assessment Date Thrive assessed 02/25/24 12/05/24 14:31 Telehealth Telehealth Location of provider rendering services: practice address Location of patient: address on file Patient Identification confirmed using: Name, : Yes Telehealth method: video Patient verbally consented to treatment: Yes Patient verbally consented to billing insurance company: Yes Patient informed of any privacy concerns related to visit: Yes Minutes spent on Phone/Video with Pt.: 15 Coding Level of Care Code Tele Est Pt Level 3 (16274) Diagnoses Influenza A J10.1 Sinus congestion R09.81 Assessment & Plan Assessment & Plan (1) Influenza A: Comment: 10/2024 Code(s): J10.1 - Influenza due to other identified influenza virus with other respiratory manifestations Category: Medical (2) Sinus congestion: Code(s): R09.81 - Nasal congestion Category: Medical Plan History of Present Illness The patient is a 44-year-old female presenting with symptoms of sinusitis. She reports the issue started two days prior to the visit, with accompanying chills and the presence of green, blood-tinged nasal discharge. She describes feeling congested with associated headaches, particularly exacerbated at night when nasal swelling impedes breathing. The patient notes that her arm is also itchy and painful. These symptoms followed a recent hospitalization for Influenza A on October 27, for which she was treated with Tamiflu, but her sinus symptoms persisted. During the telehealth call, she requested further assistance as she was unable to visit the office due to work commitments. The patient's medical history includes hypothyroidism, migraine disorder, and generalized anxiety disorder, with current medications and treatments being managed. Previous preventive measures such as mammogram and colonoscopy are up to date. She reports feeling generally unwell with significant sinus discomfort. Review of Systems - Respiratory: Reports difficulty breathing due to nasal congestion at night. - General: Reports fever and chills. - Ear, Nose, Throat: Reports nasal congestion, green and blood-tinged nasal discharge, and sinus pain. - Musculoskeletal: Reports arm itchiness and pain. Plan Patient was informed and verbally consented to the use of an ambient scribe for clinic note documentation during this visit. 1. Hypothyroidism Hypothyroidism is being managed, and no immediate changes to management were addressed in this visit. 2. Migraine Disorder Chronic migraine disorder being monitored, with no acute management discussed in this visit. 3. Influenza A Post-influenza symptoms noted, with primary treatment of sinusitis to address any lingering effects. 4. Sinusitis Given the presentation and history, the patient will be treated with Zithromax (Azithromycin), taking two tablets on the first day, followed by one tablet daily for the next four days. Additionally, a nasal spray will be prescribed to relieve congestion. 5. Generalized Anxiety Disorder Anxiety disorder continues to be managed, no specific intervention discussed in this visit. Discussion Notes During our conversation, I extensively reviewed the patient's symptoms related to sinusitis and provided guidance on management with an antibiotic course (Zithromax) and a nasal spray. I explained the administration of both medications in detail and advised against inhaling the nasal spray, instructing that any residue should be wiped off. I emphasized the importance of maintaining hydration. The patient was agreeable to this treatment approach. Further management of her chronic conditions?hypothyroidism, migraine disorder, and generalized anxiety disorder?will continue as previously tailored, with noted improvement and current stability. We addressed that her previous influenza A diagnosis was treated in October and residual symptoms appear manageable at present. Patient Instructions - Begin Zithromax as prescribed: two tablets on the first day, then one daily for the next four days. - Use the prescribed nasal spray: blow your nose first, then apply two sprays per nostril without inhaling. - Drink plenty of fluids to stay hydrated. - Continue current management for hypothyroidism, migraine disorder, and generalized anxiety disorder. - Follow up as needed, and contact with any worsening symptoms or concerns. - Adhere to workplace policies regarding sickness, ensuring not to attend work if symptomatic. Medications: New fluticasone propionate 50 mcg/actuation (Flonase Allergy Relief) administer into each nostril 2 sprays intranasal DAILY 16 grams 0RF R09.81 - Nasal congestion azithromycin (Zithromax) For 250 mg dose pack: take 500 mg today (day 1), then 250 mg for 4 days (days 2-5) PO 6 tabs 0RF R09.81 - Nasal congestion Discontinued oseltamivir Discontinued Reason: Patient Completed Course 75 mg PO BID 5 days 10 caps 0RF
--- OUTSIDE RECORDS SUMMARY | 2024-12-05 14:50 | XMS_ITS | Encounter Summary ---
Author Organization [employer] [place] [address] Care Team Providers Care Marine Painter Name Role Phone Susan You MD Primary Care Provider [phone] Reason for Visit * Reason Onset Date Comments Med Refill 11/06/2024 Encounter Details Date Type Department Care Team (Late st Contact Info) Description 11/06/2024 Telephone Obstetrics & Gynecology - [address] [id number] Sandra Vazquez, [facility] [address] [place] [id number] Med Refill Social History Tobacco Use Types Packs/Day Years Used Date Smoking Tobacco: Former Smokeless Tobacco: Never Alcohol Use Standard Drinks/Week Comments Yes 0 (1 standard drink = 0.6 oz pur e alcohol) Housing Instability Answer Date Recorde d Are you worried that in the next 2 months you may not have stable housing? No 08/25/2024 Food Access & Nutrition Answer Date Rec orded Do you have access to a vari ety of food including fruits and vegetables? Yes 08/25/2024 Access to Healthcare Answer Date Record ed Within the last 3 months, ho w many times did you visit the emergency department for your medical care? 1 08/25/2024 Health Literacy Answer Date Recorded How often do you need to hav e someone help you when you read instructions, pamphlets, or other written material from your doctor or pharmacy? Never 08/25/2024 Caregiver: How often do you need to have someone help you when you read instructions, pamphlets, or other written material from your doctor or pharmacy? Not on file 08/25/2024 Financial Risk Answer Date Recorded How hard is it for you to pa y for the very basics like food, housing, medical care, and air conditioning / heating? Not very hard 08/25/2024 Transportation Answer Date Recorded Has the lack of transportati on kept you from meetings, work, or from getting things needed for daily living? No Has the lack of transportati on kept you from medical appointments or from getting medications? No 08/25/2024 Social Isolation Answer Date Recorded How often do you feel lonely or isolated from th ose around you? Rarely 08/25/2024 Food Risk Answer Date Recorded Within the past 12 months we worried whether our food would run out before we got money to buy more. Never true 08/25/2024 Within the past 12 months th e food we bought just didn't last and we didn't have money to get more. Never true 08/25/2024 Dependent Care Answer Date Recorded Do you need help finding or paying for care for your loved ones. For example, children's lunchroom supervisor or elderly care for an older adult? No 08/25/2024 Education Answer Date Recorded Do you think completing more education or training, like finishing a GED, going to college, or learning a trade, would be helpful for you? Yes 08/25/2024 Employment and Income Answer Date Recor ded During the last four weeks, have you been actively looking for work? No 08/25/2024 Living Situation Answer Date Recorded What is your living situation? 1 10/25/2023 Comments No Sex and Gender Information Value Date Recorded Sex Assigned at Not on file Legal Sex Female 3:58 AM EST Gender Identity Not on file Sexual Orientation Not on file documented as of this encounter Progress Notes * Sandra Vazquez CNM - 11/20/2024 3:34 PM EST This has been sent to the correct compounding pharmcy * Bella Agustin RN - 11/06/2024 10:25 AM EST Call to patient; states [facility] cannot [facility] and will need to go to compounding pharmacy. Advised of [facility] Compounding pharmacy in [place]. She states that is the pharmacy itneeds to go to. Advised will message her provider to resend to above compounding pharmacy. Agrees to plan. * Hailey Maldonado - 11/06/2024 10:17 AM EST Pt calling , requesting rx for boric acid 600 mg vaginal suppository be for[facility]aredt o [facility] compound on [facility] does not fill these presriptions. Pls advise documented in this encounter Plan of Treatment Not on file documented as of this encounter Visit Diagnoses Not on filedocumented in this encounter Care Teams Marine Painter Relationship Specialty Start Date End Date Avelino, MD Susan [address] [place] [address] Dr [address] [facility] [place] [address] PCP - General Internal Medicine 09/24/20 documented as of this encounter
--- OUTSIDE RECORDS SUMMARY | 2024-12-05 14:50 | XMS_ITS | Clinical Summary ---
Author Organization [facility] Address [address] [place] [address] Phone Care Team Providers Care Freelance Digital Project Manager Name Role Phone Susan You MD Primary Care Provider [phone] Allergies Active Allergy Reactions Criticality Noted Date Comments Hydrocodone-Acetaminophen Other 01/01/2017 Panic attacks Morphine Other 01/01/2017 Panic attacks Oxycodone-Acetaminophen Other 01/01/2017 Panic attacks Penicillins Other 01/01/2017 Medications Lactobacillus acidophilus capsule Take 2 Capsules by mouth 2 Times Daily. 08/22/20 23 Active CHOLECALCIFEROL , VITAMIN D3, ORAL Take by mouth. Activ e dexlansoprazole (DEXILANT) [address] capsule Take 30 mg by mouth 2 times daily. Active levothyroxine (SYNTHROID, LEVOTHROID) 100 mcg tablet Take 100 mcg by mouth daily. 03/27/20 20 Active methylcellulose (SOLUBLE FIBER ORAL) Take 1 tablet by mouth 2 times daily. Active SENNOSIDES ORAL Take by mouth. Active trazodone HCl (TRAZODONE ORAL) Take by mouth. Activ e diclofenac (VOLTAREN) 1 % topical gel APPLY 1 GM ON THE SKIN EVERY 6-8 HOURS EACH FOOT 07/08/20 24 Active RABEprazole (ACIPHEX) 20 mg EC tablet Take 1 tablet (20 mg total) by mouth 1 (one) time each day. 05/03/20 24 Active boric acid 600 mg vaginal suppository Insert 1 suppository (600 mg total) into the vagina at bedtime. 90 suppository 3 11/20/19 25 026 Active boric acid 600 mg vaginal suppository Insert 1 suppository (600 mg total) into the vagina at bedtime. 90 suppository 10/31/19 25 025 Discontin ued(Reord er) Active Problems No known active problems Encounters Date Type Department Care Team Description 11/06/2024 Telephone Obstetrics & Gynecology - [address] [address] Sandra Vazquez CNM Med Refill from Last 3 Months Surgical History Surgery Date Site/Laterality Comments CHOLECYSTECTOMY PROCEDURE: [place] LAPAROSCOPY SURG CHOLECYSTECTOMY SALPINGOOPHORECTOMY 2012 PROCEDURE: [place] LAPAROSCOPY W/RMVL ADNEXAL STRUCTURES Medical History Medical History Date Comments Anemia DX:Anemia Anxiety state DX:Anxiety state Venereal disease DX:Venereal dis ease Abnormal cytological finding in specimen from cervix DX:Abnormal cytological find ing in specimen from cervix Hypothyroidism DX:Hypothyroidis m 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 For example, children's librarian or elderly care for an older adult? [...] on file Sexual Orientation Not on file Obstetrics History Para Term AB IAB SAB Ectopic Multiple Livin g Live Births 1 10 15 1 1 Date Outcome GA Total Labor Labor/2nd/3rd Weight Sex Type Anes PTL Lilia A1 A5 Name Clin 995 Term 40w 0d 3657 g (129 oz) M Vag-S pont None Living Delivery Location:[facility] Last Filed Vital Signs Vital Sign Reading Time Taken Comments Blood Pressure 107/76 09/01/2024 1:03 PM EST Pulse 68 09/01/2024 1:03 PM EST Temperature - - Respiratory Rate - - Oxygen Saturation - - Inhaled Oxygen Concentration - - Weight 70.8 kg (156 lb) 09/01/2024 1:03 PM EST Height 167.6 cm (5' 6 ) 09/01/2024 1:03 PM EST Body Mass Index 25.18 09/01/2024 1:03 PM EST Plan of Treatment Health Maintenance Due Date Last Done Comments DTaP,Tdap,and Td Vaccines (1 - Tdap) 1997 Hepatitis B Vaccines (1 of 3 - 19+ 3-dose series) 1997 Colorectal Cancer Screening: Colonoscopy 09/17/2022 Depression Screening 09/17/2022 COVID-19 Vaccine ( - 2023-2 5 season) 2024 Influenza Vaccine (#1) 2024 Social Influencers of Health Screening 08/25/2025 08/25/2024 Breast Cancer Screening 06/24/2026 06/24/2024 Cervical Cancer Screening: HPV 01/23/2028 01/22/2023 HIV Screening Completed 09/01/2024, 04/07/2024 Hepatitis C Screening Completed 09/01/2024 , 04/07/2024 HIB Vaccines Aged Out No longer eligi ble based on patient's age to complete this topic HPV Vaccines Aged Out No longer eligi ble based on patient's age to complete this topic Hepatitis A Vaccines Aged Out No long er eligible based on patient's age to complete this topic IPV Vaccines Aged Out No longer eligi ble based on patient's age to complete this topic MMR Vaccines Aged Out No longer eligi ble based on patient's age to complete this topic Meningococcal ACWY Vaccine Aged Out N o longer eligible based on patient's age to complete this topic Meningococcal B Vacine Aged Out No lo nger eligible based on patient's age to complete this topic Pneumococcal Vaccine: Pediatrics (0 to 5 Years) and At-Risk Patients (6 to 64 Years) Aged Out No longer eligible b ased on patient's age to complete this topic RSV Immunization Patients Under 20 months Aged Out No longer eligible b ased on patient's age to complete this topic Varicella Vaccines Aged Out No longer eligible based on patient's age to complete this topic Procedures Procedure Name Priority Date/Time Associated Diagnosis Comments HEPATITIS C ANTIBODY Routine 09/01/2024 1:58 PM EST Screen for STD (sexually transmitted disease) Annual physical exam Screening examination for venereal disease Routine general medical examination at a health care facility HIV 1, 2 ANTIBODY, P24 ANTIGEN WITH REFLEX TO DIFFERENTIATION Routine 09/01/2024 1:58 PM EST Screen for STD (sexually transmitted disease) Annual physical exam Screening examination for venereal disease Routine general medical examination at a health care facility EXTERNAL MAMMOGRAM REPORT Routine 06/24/2024 2:42 PM EDT HM HPV Routine 01/22/2023 from Last 3 Months or Most Recently Relevant to Health Maintenance Results * Hepatitis C antibody (09/01/2024 1:58 PM EST) Hepatitis C Antibody Negative Negative LAB CHEMISTRY METHOD 09/01/2024 6:21 PM EST [facility] Blood Venous blood specimen / Unknown Venipuncture / Unknown 09/01/2024 1:58 PM EST 09/01/2024 4:20 PM EST Ashley Ramesh [facility] BLOOD ORDERABLES Final Resu lt [facility] [address] [place] [address], * HIV 1,2 antibody, p24 antigen with reflex to differentiation (09/01/2024 1:58 PM EST) HIV Combo AB/AG Negative Negative LAB CHEMISTRY METHOD 09/01/2024 6:22 PM EST [facility] Blood Venous blood specimen / Unknown Venipuncture / Unknown 09/01/2024 1:58 PM EST 09/01/2024 4:20 PM EST Narrative [facility] - 09/01/2024 6:22 PM EST This assay is a 4th generation assay allowing for earlier detection of HIV infection by detecting the presence of the HIV-1 p24 antigen as well as the traditional antibodies to HIV type 1 (including group O) and type 2. ??Use of a 4th generation assay is the current CDC recommendation for HIV screening. Ashley Ramesh [facility] BLOOD ORDERABLES Final Resu lt [facility] ([facility] [address] [place] [address], * External Mammogram Report (06/24/2024 2:42 PM EDT) Anatomical Region Laterality Modality Mammography Historical Provider IMG BI PROCEDURES Final R esult * Cervical Cancer Screening: HPV (01/22/2023) [facility] Cervical Cancer Screening: HPV negative,a bstracted Historical Provider HEALTH MAINTENANCE Final Result from Last 3 Months or Most Recently Relevant to Health Maintenance Insurance [facility] PUBLIC [employer] Care Teams Freelance Digital Project Manager Relationship Specialty Start Date End Date Susan You MD [address] [place] [address] [address] [facility] [place] [address] PCP - General Internal Medicine 09/24/20
== END 2024-12-05 16:56 | disposition home or self-care (01) ==
LOC: HO.HMCH 14:30
PROVIDERS: PCP Internal Medicine; Visit Provider Internal Medicine
DX: J10.1 Influenza due to other identified influenza virus with other respiratory manifestations (principal); R09.81 Nasal congestion

== ENCOUNTER → 2025-02-26 15:55 | Outpatient (BNVA) | payer OTHER, SELFPAY | PROVIDERS: PCP Internal Medicine; Visit Provider Internal Medicine ==

== ENCOUNTER 2025-04-03 09:27 | Outpatient (REF) | payer OTHER, SELFPAY ==
[2025-04-03 09:39] LABS: MANUAL DIFF FLAG NO
[2025-04-03 10:01] LABS: Basophils Percent Auto 0.5 % (0-2); Eosinophils Absolute Auto 0.1 X10*3/uL (0.0-0.4); Eosinophils Percent Auto 1.3 % (0-4); Hematocrit 36.2 % (37.0-47.0); Hemoglobin 13.2 g/dl (12.0-16.0); Imm Gran Abs Auto 0.02 X10*3/uL (0.00-0.03); Imm Gran Pct Auto 0.2 % (0.0-0.4); Lymphocytes Absolute Auto 2.3 X10*3/uL (1.2-4.9); Mean Corpuscular HGB Conc 36.5 g/dl (31.0-35.0); Mean Corpuscular Hemoglobin 32.4 pg (27.0-33.0); Mean Corpuscular Volume 88.9 fL (80.0-98.0); Monocytes Absolute Auto 0.6 X10*3/uL (0.1-1.2); Monocytes Percent Auto 7.3 % (2-11); Neutrophils Absolute Auto 5.5 x10*3/uL (2.0-8.3); Neutrophils Percent Auto 63.7 % (45-73); Platelet Count 231 X10*3/uL (160-400); Red Blood Count 4.07 X10*6/uL (4.20-5.50); Red Cell Distribution Width 12.5 % (11.0-16.0); White Blood Count 8.7 X10*3/uL (4.8-10.8)
[2025-04-03 10:31] LABS: Alanine Aminotransferase 13 U/L (0-31); Albumin Level 4.4 g/dL (3.5-5.0); Alkaline Phosphatase 46 U/L (39-117); Anion Gap 7 (12-20); Aspartate Amino Transferase 19 U/L (5-31); Bilirubin Total 0.7 mg/dL (0.0-1.0); Blood Urea Nitrogen 9 mg/dL (9-16); Calcium 9.2 mg/dL (8.4-10.2); Carbon Dioxide 25 mmol/L (22-29); Chloride 110 mmol/L (96-108); Cholesterol 167 mg/dL (<200); Estimated Glomerular Filt Rate > 60; Glucose Random 94 mg/dL (60-115); HDL Cholesterol 63 mg/dL (>40); LDL Cholesterol Calculated 91 mg/dL (<100); Potassium 3.8 mmol/L (3.3-5.1); Sodium 138 mmol/L (135-145); Total Protein 6.6 g/dL (6.5-8.0); Triglycerides 69 mg/dL (<150)
[2025-04-03 10:59] LABS: Folate 7.9 ng/mL (> or = 4.0); Vitamin B12 297 pg/mL (200-900)
[2025-04-03 11:04] LABS: Free T4 (Free Thyroxine) 1.15 ng/dL (0.71-1.85); Vitamin D 25-OH Total 26.9 ng/mL (>30)
== END 2025-04-03 09:28 | disposition home or self-care (01) ==
LOC: HO.LAB 09:27
PROVIDERS: PCP Internal Medicine; Visit Provider Internal Medicine
DX: Z00.00 Encounter for general adult medical examination without abnormal findings (principal); E03.9 Hypothyroidism, unspecified; K21.9 Gastro-esophageal reflux disease without esophagitis; G43.909 Migraine, unspecified, not intractable, without status migrainosus; F41.1 Generalized anxiety disorder; E78.00 Pure hypercholesterolemia, unspecified
CPT/HCPCS: 36415; 80053; 80061; 82306; 82607; 82746; 84439; 84443; 85025; 96127; 99396

== ENCOUNTER 2025-04-03 09:43 | Outpatient (AMB) | payer OTHER, SELFPAY ==
[2025-04-03 09:52] VITALS: BP 100/70; PULSE 66; O2SAT 98; BMI 28.5
--- NOTE | 2025-04-03 09:52 | MHC.PC.OV ---
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 Required: No Accompanied by: Self / Same As Patient Allergies pomegranate Allergy (Severe, Verified 04/03/25 09:53) ANAPHYLAXIS opiates Allergy (Intermediate, Verified 04/03/25 09:53) panic attacks penicillin V Allergy (Intermediate, Verified 04/03/25 09:53) severe yeast infections Penicillins Allergy (Mild, Verified 04/03/25 09:53) RASH Opioids - Morphine Analogues (OPIOIDS-MORPHINE & RELATED) Adverse Reaction (Severe, Verified 04/03/25 09:53) DYSPHORIA AND PANIC ATTACKS Medication List - Last Reconciled 04/03/25 by Susan You MD ascorbic acid-collagen 30-833.3 mg tabs PO cetirizine (Zyrtec) 10 mg PO DAILY PRN cyanocobalamin (vitamin B-12) 1,000 mcg IM DAILY 1 week famotidine 40 mg PO BEDTIME insulin syringe-needle U-100 (BD Insulin Syringe Ultra-Fine) As directed Lactobacillus acidoph-L.bulgar 1 million cell 2 tabs PO BID levothyroxine 100 mcg PO DAILY 30 days magnesium 250 mg PO DAILY rabeprazole 20 mg PO DAILY trazodone 50 mg PO BEDTIME PRN valacyclovir 500 mg PO BID Tobacco use date assessed: 04/03/25 Dental Screening Dental Screen Date: 04/03/25 Did you have a dental visit in the last 12 months?: Yes Did you have a dental problem in the last 6 months where you did not have access to dental care?: No Was dental information given to patient?: Patient has dentist [facility] Medical History Acute gastroenteritis Gastritis and duodenitis Maxillary sinusitis Swelling of left foot Nasal congestion Nausea Low back pain Endometrial thickening on ultrasound Urethral diverticulum Herpes genitalis Anxiety and depression Migraine GERD (gastroesophageal reflux disease) Non-toxic multinodular goiter Shreya's disease Hypothyroidism Lump on face Surgical History H/O colonoscopy Hx of hiatal hernia History of esophagogastroduodenoscopy (EGD) Hx of bilateral salpingectomy Hx of cholecystectomy Family History Father No problems noted. Mother Diabetes mellitus HTN (hypertension) Maternal Uncle Pancreatic cancer Alcohol abuse Maternal Grandfather Diabetes mellitus Maternal Aunt Breast cancer Brother Substance abuse Paternal Grandmother Lung cancer Uterine cancer Other Mental health disorder Social History Housing: House Alcohol intake: never Comment: drank 02/2024 Patient Tobacco Use Status: Former Tobacco user Tobacco use type: Cigarette Years Smoked: quit 2009 e-Cigarette/Vaping Use: Never Used Second Hand Smoke Exposure: Yes service: No Current occupational status: employed Cognitive needs: No Hearing needs: No Vision needs: No Questionnaire PHQ-9 Over the last 2 weeks, how often have you been bothered by any of the following problems? 1. Little interest or pleasure in doing things: several days 2. Feeling down, depressed, or hopeless: several days 3. Trouble falling or staying asleep, or sleeping too much: not at all 4. Feeling tired or having little energy: several days 5. Poor appetite or overeating: several days 6. Feeling bad about yourself - or that you are a failure or have let yourself or your family down: not at all 7. Trouble concentrating on things, such as reading the newspaper or watching television: several days 8. Moving or speaking so slowly that other people could have noticed. Or the opposite - being so fidgety or restless that you have been moving around a lot more than usual: several days 9. Thoughts that you would be better off or of hurting yourself in some way: not at all Total score: 6 Depression Screening Interpretation: Positive Depression Screening Done: Yes 66781 - PHQ-9 Billing: Yes Source: Developed by Drs. John Rojas, Miriam Wu, Aayush Del Cid and colleagues, with an educational adelia from [employer]. Thrive Questionnaire Date Thrive assessed: 04/03/25 I am a: Patient What is your living situation today?: I have a steady place to live Within the past 12 months, did the food you bought not last and you didn't have the money to get more?: Never true Within the past 12 months, did you worry whether your food would run out before you got money to buy more?: Never true Do you have trouble paying for medicines?: I choose not to answer this question Do you have trouble getting transportation to medical appointments?: No Do you have trouble paying your heating and electricity bill?: No Do you have trouble taking care of your child, family member or friend?: No Do you have trouble with day-to-day activities such as bathing, preparing meals, shopping, managing finances, etc.?: No Are you currently unemployed and looking for a job?: No Are you interested in more education?: Yes Please select the resources that you would like help with: None Currently or been in a relationship where the following occur: No concerns reported THRIVE Score: 0 AUDIT C Alcohol Use Questionnaire (AUDIT-C) 1. How often do you have a drink containing alcohol?: Never 3. How often do you have six or more drinks on one occasion?: Never Total Score: 0 MELISSA-7 AMB Questionnaire MELISSA-7 Date MELISSA - 7 assessed: 04/03/25 Feeling nervous, anxious, or on edge: 0 = Not at all Not being able to stop or control worryin = Not at all Worrying too much about different things: 0 = Not at all Trouble relaxin = Not at all Being so restless that it is hard to sit still: 0 = Not at all Becoming easily annoyed or irritable: 0 = Not at all Feeling afraid as if something awful might happen: 0 = Not at all Total MELISSA-7 score (0-4 normal; 5-9 mild; 10-14 moderate; 15-21 severe): 0 Source: Developed by Drs. John Rojas, Miriam Wu, Aayush Del Cid and colleagues, with an educational adelia from [employer]. Review of Systems Const Denies poor appetite and Denies weakness Eyes Denies no additional complaints ENT Reports Normal hearing present, Denies dizziness, Denies nasal congestion, Denies tinnitus and Denies sore throat Card Denies chest pain, Denies syncope, Denies rapid heart rate and Denies dyspnea Resp Denies cough and Denies dyspnea GI Denies change in stool character, Reports constipation, Denies diarrhea, Denies nausea and Denies vomiting Denies urinary frequency, Denies difficulty voiding and Denies dysuria Neuro Reports Normal hearing present, Denies confusion, Denies dizziness, Denies syncope and Denies weakness Psych Denies confusion Physical exam (Primary Care) Vital Signs: Last Vital Signs Pulse 66 04/03/25 09:52 BP 100/70 04/03/25 09:52 Pulse Ox 98 04/03/25 09:52 Oxygen Delivery Method Room Air 04/03/25 09:52 BMI result Body Mass Index 28.5 Tobacco/Smoking Status: Tobacco use Status Tobacco use date assessed 04/03/25 04/03/25 09:53 Patient Tobacco Use Status Former Tobacco user 04/03/25 09:53 Tobacco use type Cigarette 04/03/25 09:53 e-Cigarette/Vaping Use Never Used 04/03/25 09:53 PHQ-9: PHQ-9 Score PHQ-9: Total score 6 04/03/25 09:53 Depression Screening Interpretation: Positive Thrive Assessment: Date of Thrive Assessment Date Thrive assessed 04/03/25 04/03/25 10:05 Currently or been in a relationship where the following occur: No concerns reported Const General: No confusion Orientation/consciousness: No confusion HENMT Head: Yes normocephalic Ears: external ears normal and TM's normal bilaterally Face and sinus: Yes normal facial exam Mouth: moist mucous membranes Throat: Yes tonsils normal Eyes Conjunctivae: conjunctivae normal Pupils: Equal, round and reactive pupils present and Pupil accommodation reflex normal Direct Ophthalmoscopy: normal light reflex Neck Neck: No lymphadenopathy Thyroid: Thyroid normal Chest Chest palpation & inspection: normal inspection of the chest Resp Effort & Inspection: normal respiratory effort and no audible wheezes Auscultation: clear to auscultation bilaterally, no crackles, no wheezes and lung sounds not diminished Cardio Rate: regular rate Rhythm: regular rhythm Peripheral pulses: radial pulses present and dorsalis pedis present GI Palpation (GI): no masses Auscultation: normal bowel sounds and normoactive bowel sounds Rectal Exam - Female: deferred Skin General skin exam: no rashes or lesions noted Rashes: no rashes Neuro General: No confusion Cranial nerves: Yes Equal, round and reactive pupils present and Yes Normal hearing present Cognition (Neuro): normal cognition Gait exam (Neuro): Normal gait present Motor exam (neuro): 5/5 motor strength present throughout Deep tendon reflexes (DTR's): Right brachioradialis reflex intensity grade: 2+, Left brachioradialis reflex intensity grade: 2+, Right patellar reflex intensity grade: 2+ and Left patellar reflex intensity grade: 2+ Extrem General: No edema Coding Level of Care Code Est Pt Prev Care 40-64y(56064) Diagnoses Annual physical exam Z00.00 Acquired hypothyroidism E03.9 Hypothyroidism type: acquired Gastroesophageal reflux disease without esophagitis K21.9 Esophagitis presence: without esophagitis Migraine G43.909 Generalized anxiety disorder F41.1 Additional Codes PHQ-9 - 66345 - PHQ-9 Billing: Yes ([id number]) Assessment & Plan Assessment & Plan (1) Annual physical exam: Code(s): Z00.00 - Encounter for general adult medical examination without abnormal findings Category: Medical Plan: Patient is advised to eat healthy, keep well hydrated, keep active and have adequate sleep. (2) Hypothyroidism: Comment: September 2022 Code(s): E03.9 - Hypothyroidism, unspecified Category: Medical Qualifiers: Hypothyroidism type: acquired Qualified Code(s): E03.9 - Hypothyroidism, unspecified Plan: Continue with thyroid medication blood work is pending (3) GERD (gastroesophageal reflux disease): Code(s): K21.9 - Gastro-esophageal reflux disease without esophagitis Category: Medical Qualifiers: Esophagitis presence: without esophagitis Qualified Code(s): K21.9 - Gastro-esophageal reflux disease without esophagitis Plan: Avoid the foods that causes that usually spicy foods, tomato products, juices, coffee, soda and foods that your sensitive to. After eating do not lie down, allow 3-4 hours before in lie down. And keep the head of bed above 30 degrees to avoid the acid from going up. (4) Migraine: Code(s): G43.909 - Migraine, unspecified, not intractable, without status migrainosus Category: Medical Plan: Patient is advised to eat healthy, keep well hydrated, keep active and have adequate sleep. (5) Generalized anxiety disorder: Comment: Therapy in [facility] in [place]- Code(s): F41.1 - Generalized anxiety disorder Category: Medical Plan: Continue with counseling and therapy patient on trazodone Plan History of Present Illness The patient is a 44-year-old female presenting for a physical examination and wellness visit. She reports a history of hypothyroidism, managed with levothyroxine 100 mcg daily, and expresses concern about her thyroid function due to recent weight fluctuations. Her last blood work in March showed normal blood counts, but thyroid function tests are pending. The patient has a history of Gastroesophageal Reflux Disease (GERD), for which she takes famotidine and rabeprazole. She reports dietary modifications, avoiding spicy foods and pizza, but admits to consuming sweets, which may exacerbate her symptoms. She has a history of migraines and iron deficiency anemia, both of which are currently stable. The patient also has generalized anxiety disorder, managed with counseling and trazodone as needed for sleep. Her family history is significant for various cancers, including lung, uterine, breast, and pancreatic cancer, but no history of heart disease. She has a personal history of tubular adenoma of the colon, with her last colonoscopy performed in December 2023. The patient is overweight, having gained 6 pounds recently, and is concerned about her weight management. She has stopped consuming alcohol and does not smoke, but admits to a sedentary lifestyle due to family obligations. 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 - Diet: Avoids fried foods and pork, but consumes sweets Review of Systems - General: Reports weight gain of 6 pounds - Cardiovascular: Denies chest pain, syncope, or palpitations - Respiratory: Denies dyspnea, cough, or wheezing - Gastrointestinal: Reports GERD symptoms, denies nausea or vomiting - Neurological: Reports migraines, denies dizziness or balance issues - Musculoskeletal: Denies joint pain or swelling - Genitourinary: Denies dysuria or hematuria - Endocrine: Concern about thyroid function due to weight fluctuations - Psychiatric: Reports anxiety, managed with counseling and trazodone Physical Exam General: Cooperative, healthy appearing, comfortable, no acute distress and well developed Orientation: Patient oriented x3 Limitations: No limitations Head: Normal to inspection Ears: Hearing grossly normal bilaterally, no pain when pulling, very clean Nose: Normal external nose present Face and sinus: Normal facial exam, patient reports sinus issues Eyes: Appearance normal, both eyes and all related structures, no pain upon examination Neck: Normal visual inspection and Yes full ROM Respiratory: Normal respiratory effort and able to speak in complete sentences. Clear to auscultation bilaterally Cardiovascular: Regular rate and rhythm. Normal S1 and S2 GI: Normal to inspection. Soft to palpation and nontender, patient reports GERD-related pain Skin: No rashes or lesions noted Neuro: Patient oriented x3 Extremities: Normal to inspection Results - Labs: Normal blood count, normal platelet count, normal white blood cell count - Labs: Thyroid function tests pending Plan The patient will continue with her current thyroid medication, levothyroxine, while awaiting the results of her thyroid function tests. An ultrasound of the thyroid has been requested to further evaluate her concerns about thyroid function. For her GERD, she will continue with famotidine and rabeprazole, and dietary modifications are encouraged to minimize symptoms. The patient is advised to maintain her counseling sessions and use trazodone as needed for anxiety and sleep disturbances. She is encouraged to engage in regular physical activity and monitor her weight, considering her recent weight gain. Preventative care measures, including regular mammograms and colonoscopies, are up to date, and she is advised to continue with these screenings. Patient was informed and verbally consented to the use of an ambient scribe for clinic note documentation during this visit. Discussion Notes I discussed with the patient the importance of continuing her thyroid medication and the pending thyroid function tests to assess her current thyroid status. We agreed on an ultrasound to further evaluate her thyroid concerns. For her GERD, I emphasized the continuation of her current medications and dietary modifications to alleviate symptoms. We also discussed the importance of maintaining counseling sessions and using trazodone as needed for anxiety and sleep. I advised her to increase physical activity and monitor her weight, given her recent weight gain. We reviewed her preventative care measures, ensuring her mammograms and colonoscopies are up to date. Patient Instructions - Continue taking levothyroxine as prescribed. - Follow up on thyroid function test results. - Schedule and attend the thyroid ultrasound appointment. - Continue taking famotidine and rabeprazole for GERD. - Maintain dietary modifications to reduce GERD symptoms. - Attend counseling sessions regularly and use trazodone as needed for sleep. - Engage in regular physical activity and monitor weight. - Ensure mammograms and colonoscopies are up to date. Orders: Orders US thyroid Today E03.9 - Hypothyroidism, unspecified Comprehensive Met. Panel 6 Months E03.9 - Hypothyroidism, unspecified Free T4 (Free Thyroxine) 6 Months E03.9 - Hypothyroidism, unspecified Lipid Panel 6 Months E03.9 - Hypothyroidism, unspecified, E78.00 - Pure hypercholesterolemia, unspecified Vitamin D 25-OH Total 6 Months E03.9 - Hypothyroidism, unspecified Complete Blood Count Auto Diff 6 Months E03.9 - Hypothyroidism, unspecified Thyroid Stimulating Hormone 6 Months E03.9 - Hypothyroidism, unspecified Vitamin B12 and Folate 6 Months E03.9 - Hypothyroidism, unspecified Hemoglobin A1c 6 Months E03.9 - Hypothyroidism, unspecified
== END 2025-04-03 10:42 | disposition home or self-care (01) ==
LOC: HO.HMCH 09:44
PROVIDERS: PCP Internal Medicine; Visit Provider Internal Medicine
DX: Z00.00 Encounter for general adult medical examination without abnormal findings (principal); E03.9 Hypothyroidism, unspecified; K21.9 Gastro-esophageal reflux disease without esophagitis; G43.909 Migraine, unspecified, not intractable, without status migrainosus; F41.1 Generalized anxiety disorder

== ENCOUNTER 2025-05-19 14:14 | Outpatient (REF) | payer OTHER, SELFPAY ==
--- NOTE | ~2025-05-19 | US_ITS ---
EXAMINATION: US THYROID HISTORY: E03.9 - Hypothyroidism, unspecified TECHNIQUE: Real-time grayscale ultrasound imaging was performed and images were reviewed. COMPARISON: Comparison is made with the prior examination dated 04/22/2019. FINDINGS: SIZE: The right thyroid lobe measures 3.7 x 0.8 x 1.2 cm. The left thyroid lobe measures 3.4 x 0.8 x 1.3 cm. The isthmus measures 2 mm. FLOW: Flow to the gland is normal. ECHOGENICITY: The echotexture of the gland is homogeneous. NODULES: No nodules are identified. US/US thyroid IMPRESSION: Unremarkable thyroid ultrasound. ACR TI-RADS Guidelines TR1 (0 points): Benign. No follow-up or biopsy required TR2 (2 points): Not Suspicious. No biopsy or follow up indicated TR3 (3 points): Mildly Suspicious. FNA if >= 2.5 cm, Follow if >= 1.5 cm TR4 (4-6 points): Moderately Suspicious. FNA if >= 1.5 cm, Follow if >= 1.0 cm TR5 (>=7 points): Highly Suspicious. FNA if >= 1.0 cm, Follow if >= 0.5 cm Electronically signed by: John Martinez MD 05/19/2025 02:36 PM EDT
--- OUTSIDE RECORDS SUMMARY | 2025-05-19 14:55 | XMS_ITS | Clinical Summary ---
Author Organization [facility] Address [address] [place] [address] Phone Care Team Providers Care Learning Operations Specialist Name Role Phone Susan You MD Primary Care Provider [phone] Allergies Active Allergy Reactions Criticality Noted Date Comments Hydrocodone-Acetaminophen Other 01/01/2017 Panic attacks Morphine Other 01/01/2017 Panic attacks Oxycodone-Acetaminophen Other 01/01/2017 Panic attacks Penicillins Other 01/01/2017 Medications Lactobacillus acidophilus capsule Take 2 Capsules by mouth 2 Times Daily. 023 Active CHOLECALCIFER OL, VITAMIN D3, ORAL Take by mouth. Activ e levothyroxine (SYNTHROID, LEVOTHROID) 100 mcg tablet Take 100 mcg by mouth daily. 020 Active trazodone HCl (TRAZODONE ORAL) Take by mouth. Activ e RABEprazole (ACIPHEX) 20 mg EC tablet Take 1 tablet (20 mg total) by mouth 1 (one) time each day. 024 Active boric acid 600 mg vaginal suppository Insert 1 suppository (600 mg total) into the vagina at bedtime. 90 suppository 3 025 2025 Active cyanocobalami n (VITAMIN B-12) 1,000 mcg/mL injection INJECT 1 ML (1000 MCG) INTRAMUSCULARLY DAILY FOR 1 WEEK, THEN ONCE A WEEK X4 WEEKS THEN ONCE A MONTH 025 Active famotidine (PEPCID) 40 mg tablet Take 1 tablet (40 mg total) by mouth at bedtime. 025 Active dexlansoprazo le (DEXILANT) [address] capsule Take 30 mg by mouth 2 times daily. 2024 Discontinued methylcellulo se (SOLUBLE FIBER ORAL) Take 1 tablet by mouth 2 times daily. 2024 Discontinued SENNOSIDES ORAL Take by mouth. 2024 Discontinued diclofenac (VOLTAREN) 1 % topical gel APPLY 1 GM ON THE SKIN EVERY 6-8 HOURS EACH FOOT 024 2024 Discontinued Active Problems No known active problems Encounters Date Type Department Care Team Description 04/28/2025 2:20 PM EDT Office Visit Obstetrics and Gynecology [address] [address] [place] Pelvic pain (Primary Dx); Encounter for removal of intrauterine contraceptive device (IUD); Encounter for other general counseling or advice on contraception from Last 3 Months Surgical History Surgery Date Site/Laterality Comments CHOLECYSTECTOMY PROCEDURE: [place] LAPAROSCOPY SURG CHOLECYSTECTOMY SALPINGOOPHORECTOMY 2012 PROCEDURE: NV LAPAROSCOPY W/RMVL ADNEXAL STRUCTURES Medical History Medical [...] care for your loved ones. For example, child care cook or elderly care for an older adult? [...] Ectopic Multiple Livin g Live Births 1 1 1 0 0 0 0 0 0 1 1 Date Outcome GA Total Labor Labor/2nd/3rd Weight Sex Type Anes PTL Lilia A1 A5 Name Clin 995 Term 40w 0d 3657 g (129 oz) M Vag-S pont None Living Delivery Location:[facility] Last Filed Vital Signs Vital Sign Reading Time Taken Comments Blood Pressure 111/73 04/28/2025 2:15 PM EDT Pulse 73 04/28/2025 2:15 PM EDT Temperature - - Respiratory Rate 14 04/28/2025 2:15 PM EDT Oxygen Saturation - - Inhaled Oxygen Concentration - - Weight 74.9 kg (165 lb 3.2 oz) 04/28/2025 2:15 P M EDT Height 167.6 cm (5' 6 ) 09/01/2024 1:03 PM EST Body Mass Index 26.66 09/01/2024 1:03 PM EST Plan of Treatment Health Maintenance Due Date Last Done Comments DTaP,Tdap,and Td Vaccines (1 - Tdap) 1997 Hepatitis B Vaccines (1 of 3 - 19+ 3-dose series) 1997 Colorectal Cancer Screening: Colonoscopy 09/17/2022 COVID-19 Vaccine ( - 2023-2 5 season) 2024 Influenza Vaccine (#1) 2025 Social Influencers of Health Screening 08/25/2025 08/25/2024 Breast Cancer Screening 06/24/2026 06/24/2024 Cervical Cancer Screening: HPV 01/23/2028 01/22/2023 HIV Screening Completed 09/01/2024, 04/07/2024 Hepatitis C Screening Completed 09/01/2024 , 04/07/2024 Depression Screening Completed 04/21/2025 HIB Vaccines Aged Out No longer eligi [...] age to complete this topic Meningococcal B Vaccine Aged Out No l onger eligible based on patient's age to complete this topic Pneumococcal Vaccine: Pediatrics (0 to 5 Years) and At-Risk Patients (6 to 49 Years) Aged Out No longer eligible b [...] LAB CHEMISTRY METHOD 09/01/2024 6:21 PM EST [facility] Blood Venous blood specimen / Unknown Venipuncture / Unknown 09/01/2024 1:58 PM EST 09/01/2024 4:20 PM EST us Ashley Ramesh CNM LAB BLOOD ORDERABLES Final Resu lt [facility] [address] [place] [address], * HIV 1,2 antibody, p24 antigen with reflex to differentiation (09/01/2024 1:58 PM EST) [facility] HIV Combo AB/AG Negative Negative LAB CHEMISTRY METHOD 09/01/2024 6:22 PM EST [facility] Blood Venous blood specimen / Unknown Venipuncture / Unknown 09/01/2024 1:58 PM EST 09/01/2024 4:20 PM EST Narrative [facility] - 09/01/2024 6:22 PM EST This assay is a 4th generation assay allowing for earlier detection of HIV infection by detecting the presence of the HIV-1 p24 antigen as well as the traditional antibodies to HIV type 1 (including group O) and type 2. Use of a 4th generation assay is the current CDC recommendation for HIV screening. Ashley Ramesh [facility] BLOOD ORDERABLES Final Resu lt [facility] [address] [place] [address], * External Mammogram Report (06/24/2024 2:42 PM EDT) Anatomical Region Laterality Modality Mammography Historical Provider IMG BI PROCEDURES Final R esult * Cervical Cancer Screening: HPV (01/22/2023) [facility] Cervical Cancer Screening: HPV negative,a bstracted Historical Provider HEALTH MAINTENANCE Final Result from Last 3 Months or Most Recently Relevant to Health Maintenance Insurance [facility] [employer] Care Teams Learning Operations Specialist Relationship Specialty Start Date End Date Susan You MD [address] [place] [address] [address] [address] [facility] [place] [id number] PCP - General Internal Medicine 09/24/20
== END 2025-05-19 14:15 | disposition home or self-care (01) ==
LOC: HO.US 14:14
PROVIDERS: PCP Internal Medicine; Visit Provider Internal Medicine
DX: E03.9 Hypothyroidism, unspecified (principal)
CPT/HCPCS: 76536

== ENCOUNTER → 2025-05-19 14:19 | Outpatient (BNV) | payer OTHER, SELFPAY | PROVIDERS: PCP Internal Medicine; Visit Provider Radiology Diagnostic Radiology | DX: E03.9 Hypothyroidism, unspecified (principal) | CPT/HCPCS: 76536 ==

== ENCOUNTER 2025-08-11 11:57 | Outpatient (REF) | payer OTHER, SELFPAY ==
--- NOTE | ~2025-08-11 | MM_ITS ---
EXAMINATION: MM SCREENING DIGITAL BREAST TOMOSYNTHESIS, BILATERAL CLINICAL INFORMATION: Screening. Asymptomatic. COMPARISON: Mammography: Comparison is made with available priors TECHNIQUE: Digital breast mammography with tomosynthesis is performed in both the craniocaudal and mediolateral oblique views along with computer-aided detection (CAD). FINDINGS: There are scattered areas of fibroglandular density. There are no significant masses, abnormal calcifications, or other abnormalities. MM/MM tomosynthesis screening BI IMPRESSION: No mammographic evidence of malignancy. ASSESSMENT: BI-RADS Category 1: Negative RECOMMENDATION: Routine annual mammography screening. 1 year F/U This examination should not preclude the clinical evaluation of a suspicious palpable abnormality. This patient's information was entered into a reminder system with a target due date for their next mammogram. Electronically signed by: Shilpa Aponte DO 08/11/2025 02:45 PM EDT
--- OUTSIDE RECORDS SUMMARY | 2025-08-11 15:18 | XMS_ITS | Clinical Summary ---
Author Organization [facility] Address [address] [place] [address] Phone Care Team Providers Care Pet Care Associate Name Role Phone Susan You MD Primary Care Provider [phone] Allergies Active Allergy Reactions Criticality Noted Date Comments Hydrocodone-Acetaminophen Other 01/01/2017 Panic attacks Morphine Other 01/01/2017 Panic attacks Oxycodone-Acetaminophen Other 01/01/2017 Panic attacks Penicillins Other 01/01/2017 Medications Lactobacillus acidophilus capsule Take 2 Capsules by mouth 2 Times Daily. 08/22/20 23 Active CHOLECALCIFERO L, VITAMIN D3, ORAL Take by mouth. Activ e levothyroxine (SYNTHROID, LEVOTHROID) 100 mcg tablet Take 100 mcg by mouth daily. 03/27/20 20 Active trazodone HCl (TRAZODONE ORAL) Take by mouth. Activ e RABEprazole (ACIPHEX) 20 mg EC tablet Take 1 tablet (20 mg total) by mouth 1 (one) time each day. 05/03/20 24 Active boric acid 600 mg vaginal suppository Insert 1 suppository (600 mg total) into the vagina at bedtime. 90 suppository 3 11/20/19 25 026 Active cyanocobalamin (VITAMIN B-12) 1,000 mcg/mL injection INJECT 1 ML (1000 MCG) INTRAMUSCULARLY DAILY FOR 1 WEEK, THEN ONCE A WEEK X4 WEEKS THEN ONCE A MONTH 10/16/19 25 Active famotidine (PEPCID) 40 mg tablet Take 1 tablet (40 mg total) by mouth at bedtime. 12/02/19 25 Active Active Problems No known active problems Surgical History Surgery Date Site/Laterality Comments CHOLECYSTECTOMY PROCEDURE: [place] LAPAROSCOPY SURG CHOLECYSTECTOMY SALPINGOOPHORECTOMY 2012 PROCEDURE: [place] LAPAROSCOPY W/RMVL ADNEXAL STRUCTURES Medical History Medical [...] care for your loved ones. For example, childcare teacher or elderly care for an older adult? [...] Date Recorded What is your living situation? Unrecognized valu e 08/25/2024 Comments No Sex and Gender Information Value Date Recorded Sex Assigned at Not on file Legal Sex Female 3:58 AM EST Gender Identity Not on file Sexual Orientation Not on file Obstetrics History Para Term AB IAB SAB Ectopic Multiple Livin g Live Births 1 1 1 0 0 0 1 1 Date Outcome GA Total Labor Labor/2nd/3rd Weight Sex Type Anes PTL Lilia A1 A5 Name Clin 995 Term 40w 0d 3657 g (129 oz) M Vag-S pont None Living Delivery Location:[facility] [place] Last Filed Vital Signs Vital Sign Reading [...] Health Maintenance Due Date Last Done Comments Colorectal Cancer Screening: Colonoscopy 1978 DTaP,Tdap,and Td Vaccines (1 - Tdap) 1997 Hepatitis B Vaccines (1 of 3 - 19+ 3-dose series) 1997 COVID-19 Vaccine ( - 2023-2 5 season) 2025 Influenza Vaccine (#1) 2025 Social Influencers of Health Screening 08/25/2025 08/25/2024 Breast Cancer Screening 06/24/2026 06/24/2024 Cervical Cancer Screening: HPV 01/23/2028 01/22/2023 RSV Immunization Adult Patients (1 - 1-dose 75+ series) 2053 HIV Screening Completed 09/01/2024, 04/07/2024 Hepatitis C [...] LAB CHEMISTRY METHOD 09/01/2024 6:21 PM EST [facility] Blood Venous blood specimen / Unknown Venipuncture / Unknown 09/01/2024 1:58 PM EST 09/01/2024 4:20 PM EST Ashley Ramesh [facility] BLOOD ORDERABLES Final Resu lt [facility] [address] [place] [address], * HIV 1,2 antibody, p24 antigen with reflex to differentiation (09/01/2024 1:58 PM EST) HIV Combo AB/AG Negative Negative LAB CHEMISTRY METHOD 09/01/2024 6:22 PM EST [facility] Blood Venous blood specimen / Unknown Venipuncture / Unknown 09/01/2024 1:58 PM EST 09/01/2024 4:20 PM EST Narrative [facility] - 09/01/2024 6:22 PM EST This assay is a 4th generation assay allowing for earlier detection of HIV infection by detecting the presence of the HIV-1 p24 antigen as well as the traditional antibodies to HIV type 1 (including group O) and type 2. Use of a 4th generation assay is the current CDC recommendation for HIV screening. Ashley Ramesh CN LAB BLOOD ORDERABLES Final Resu lt [facility] [place] ([facility] [address] [place] [address], * External Mammogram Report (06/24/2024 2:42 PM EDT) Anatomical Region Laterality Modality Mammography Historical Provider IMG BI PROCEDURES Final R esult * Cervical Cancer Screening: HPV (01/22/2023) Cervical Cancer Screening: HPV negative,a bstracted Historical Provider HEALTH MAINTENANCE Final Result from Last 3 Months or Most Recently Relevant to Health Maintenance Insurance [facility] PUBLIC PLANS Care Teams Pet Care Associate Relationship Specialty Start Date End Date Susan You MD [address] [place] [address] Dr Shultz [address] [facility] [place] [address] PCP - General Internal Medicine 09/24/20
--- OUTSIDE RECORDS SUMMARY | 2025-08-11 15:18 | XMS_ITS | Data Portability ---
Author Organization [place] [facility] Address [address] [place] [address] Care Team Providers Care Accounts Receivable Coordinator Name Role Phone BASIM KIMBERLYJONATHAN Primary Care Provider Assessment Encounter Date Assessment Date Assessment LastModified by Organization Details LastModified Time 12/12/2024 12/12/2024 Nasal examination today did not identify a prominent bleeding source to better explain their history of bleeding. Recommend medical management with saline nasal spray 4-6 times daily and K-Y jelly at night. I provided her with a handout on epistaxis precautions including use of a humidifier and avoidance of prolonged hot showers or steam. [email or web address] Not available 12/13/2024 18:00:34 Plan of Treatment Reminders Order Date Submit Date Provider Last Modified By Organization Details Last Modified Time Details Appointments None record ed. Lab None record ed. Referral None record ed. Procedures None record ed. Surgeries None record ed. Imaging None record ed. Medication Orders None record ed. Patient TargetsNo targets recorded. Patient InstructionsNo instructions recorded. Reason for Referral None Reported. Problems Name Problem SNOMED Code Status Onset Date Resolution Date Notes Provider Name and Address Organization Details Recorded Time Gastroesop hageal reflux disease without esophagiti s 108012099 Active 2018 Gastro-es ophageal reflux disease without esophagit is; Note: Date Diagnosed : 9 2:58 PM (K21.9) Not Available [facility] 4 02:14:43 Nasal congestion 66681715 Active 2018 Nasal congestio n; Note: Date Diagnosed : 9 2:58 PM (R09.81) Not Available [facility] 4 02:12:59 Dysphonia 84174598 Active 2018 Hoarsenes s; Note: Date Diagnosed : 9 2:57 PM (R49.0) Not Available [facility] 4 02:13:47 Headache 11494128 Active 2019 Facial pain NOS; Note: Date Diagnosed : 02/17/2020 4:58 PM (R51) Not Available [facility] 4 02:13:30 Allergic rhinitis 41982573 Active 2019 Other allergic rhinitis; Note: Date Diagnosed : 02/17/2020 4:58 PM (J30.89) Not Available [facility] 4 02:13:27 Acute pharyngiti s 037982405 Active 2021 Sore throat (acute) NOS; Note: Date Diagnosed : 10/26/2021 3:51 PM (J02.9) Not Available [facility] 4 02:13:09 Bleeding from nose 468800526 Active 2024 Sanjuanita alexis [place] [facility] 5 17:59:27 Problem Notes None recorded. Medical Equipment None Reported. Medications Name Sig Start Date Stop Date Status Note LastModified by Organization Details LastModified Time rabeprazo le 20 mg tablet,de layed release TAKE 1 TABLET BY MOUTH EVERY DAY active Not Available Not Available No t Available azithromy edda 250 mg tablet TAKE 2 TABLETS BY MOUTH TODAY, THEN TAKE 1 TABLET DAILY FOR 4 DAYS DIRECTED active Not Available Not Available No t Available senna 8.6 mg tablet active Medicati on ID: [id number] B rand Name: senna Se nd Method: E-Prescr ibed Sub s Allowed: subs OK Medic ationGen ericName : senna Not Available Not Available Not Available metronida zole 0.75 % (37.5 mg/5 gram) vaginal gel active Medicati on ID: [id number] B rand Name: metronid azole Se nd Method: E-Prescr ibed Sub s Allowed: subs OK Medic ationGen ericName : metronid azole Not Available Not Available Not Available famotidin e 40 mg tablet TAKE 1 TABLET BY MOUTH AT BEDTIME active Not Available Not Available No t Available ondansetr on 8 mg disintegr ating tablet TAKE 1 TABLET ORALLY EVERY 8 HOURS NEEDED FOR NAUSEA AND VOMITING active Not Available Not Available No t Available levothyro xine 100 mcg tablet TAKE 1 TABLET (100 MCG) ORALLY DAILY FOR 30 DAYS active Not Available Not Available No t Available cyanocoba dulce (vit B-12) 1,000 mcg/mL injection solution INJECT 1 ML (1000 MCG) INTRAMUS CULARLY DAILY FOR 1 WEEK, THEN ONCE A WEEK X4 WEEKS THEN ONCE A MONTH active Not Available Not Available No t Available oseltamiv ir 75 mg capsule TAKE 1 CAPSULE BY MOUTH TWICE A DAY FOR 5 DAYS active Not Available Not Available No t Available levothyro xine 125 mcg tablet 10/26 completed Medicati on ID: [id number] D uration Value: 30 Brand Name: levothyr oxine Se nd Method: E-Prescr ibed Sub s Allowed: subs OK Speci al Instruct ion: TK 1 T PO QD Medic ationGen ericName : levothyr oxine Not Available Not Available Not Available azelastin e 137 mcg (0.1 %) nasal spray active Medicati on ID: [id number] B rand Name: azelasti ne Send Method: E-Prescr ibed Sub s Allowed: subs OK Medic ationGen ericName : azelasti ne Not Available Not Available Not Available ondansetr on 4 mg disintegr ating tablet TAKE 1 TABLET BY MOUTH EVERY 8 HOURS NEEDED FOR NAUSEA AND VOMITING active Not Available Not Available No t Available fluticaso ne propionat e 50 mcg/actua tion nasal spray,sarah pension SPRAY 2 SPRAYS INTO EACH NOSTRIL DAILY active Not Available Not Available No t Available Laxative (bisacody l) 5 mg tablet,de layed release TAKE 4 TABLETS BY MOUTH ONE DOSE AT NOON THE DAY BEFORE YOUR COLONOSC OPY active Not Available Not Available No t Available diclofena c 1 % topical gel APPLY 1 GM ON THE SKIN EVERY 6-8 HOURS EACH FOOT active Not Available Not Available No t Available Gavilax 17 gram/dose oral powder PLEASE SEE ATTACHED FOR DETAILED DIRECTIO NS active Not Available Not Available No t Available Dexilant 60 mg capsule, delayed release active Medicati on ID: [id number] B rand Name: Dexilant Send Method: E-Prescr ibed Sub s Allowed: subs OK Medic ationGen ericName : Dexilant Not Available Not Available Not Available Dexilant 30 mg capsule, delayed release 10/26 completed Medicati on ID: [id number] D uration Value: 30 Brand Name: Dexilant Send Method: E-Prescr ibed Sub s Allowed: subs OK Medic ationGen ericName : Dexilant Not Available Not Available Not Available Vitals Date Recorded Body height Body mass index (BMI) Body weight Provider Name and Address Organization Details Last Updated DateTime 12/12/2024 162.56 cm 27.5 kg/m2 [address] [facility] 12/12/2024 11:19:16 Social History None recorded. Functional Status None recorded. Mental Status None recorded. Family History Nothing Reported. Medical History No medical history recorded. Gynecological HistoryNo gynecological history recorded. Obstetrics History GPAL:G 0 P 0 0 0 0 Past Encounters Encounter ID Performer Location Encounter Start Date Encounter Closed Date Diagnosis/Indication Diagnosis SNOMED-CT Code Diagnosis ICD10 Code Diagnosis IMO Codes Diagnosis Note [id number] SANJUANITA BLANC PA-C [facility] [address] [address] 12/12/2024 11:04:13 12/12/2024 11:40:05 Bleeding from nose 160417243 R04.0 Health Concerns Section Related Observation LastModified by Organization Detai ls LastModified Time None Recorded Concern Status LastModified by Organization Details LastModified Time None Recorded Advance Directives Directive None Recorded Payers Insurance Date Sequence Insurance Name Policy Number Policy Haque Covered Member ID Haque Member ID Guarantor Name 12/08/2024 1 [facility] [employer] [id number] Candice Smith [id number] Candice Smith 12/15/2024 1 [facility] [employer] - TOGETHER (MEDICAID HMO) [id number] Candice Smith [id number] Candice Smith Notes Date Note Type Note Provider Name and Address Organization Details Recorded Time 12/12/2024 text/html ROS as noted in the HPI 44 year old female presents for evaluation of bloody nose. She reports that for the past week when she blows her nose there is blood in the tissue. This only happens when she blows the right side. No fransico epistaxis. She was just treated for a sinus infection by her PCP possibly with Azithromycin which she completed a day ago. Her sinus symptoms are improved. She admits that she was blowing her nose a lot because of the sinus infection and also steaming her nose over a pot of boiling water to improve her sinus congestion. She regularly takes Zyrtec for allergies. She used to use Flonase but stopped as it dried out her nose. JOSE LOPES MD [address] [place] [address], [phone], [facility] 12/15/2024 10:21:10 OBGyn Episode No OBEpisode recorded.
== END 2025-08-11 11:58 | disposition home or self-care (01) ==
LOC: HO.MAMMO 11:57
PROVIDERS: PCP Internal Medicine; Visit Provider Internal Medicine
DX: Z12.31 Encounter for screening mammogram for malignant neoplasm of breast (principal)
CPT/HCPCS: 77063; 77067

== ENCOUNTER → 2025-08-11 12:15 | Outpatient (BNV) | payer OTHER, SELFPAY | PROVIDERS: PCP Internal Medicine; Visit Provider Internal Medicine | DX: Z12.31 Encounter for screening mammogram for malignant neoplasm of breast (principal) | CPT/HCPCS: 77063; 77067 ==

== ENCOUNTER 2025-10-05 13:54 | Outpatient (AMB) | payer OTHER, SELFPAY ==
--- NOTE | 2025-10-05 14:20 | MHC.PC.OV ---
Vital Signs 10/05/25 14:22 Height 5 ft 4 in Weight 167 lb BMI 28.7 BP 100/70 Blood Pressure Location Lt brachial Position Sitting Respiration 16 Pulse 83 Pulse Source Pulse Oximeter Temp 97.8 F Temp Source Temporal Artery Scan Pulse Oximetry (%) 98 Oxygen Delivery Method Room Air Intake Visit Reasons: hypothyroid Pottery Decoration Designer Required: No Accompanied by: Self / Same As Patient Allergies pomegranate Allergy (Severe, Verified 10/05/25 14:32) ANAPHYLAXIS opiates Allergy (Intermediate, Verified 10/05/25 14:32) panic attacks penicillin V Allergy (Intermediate, Verified 10/05/25 14:32) severe yeast infections Penicillins Allergy (Mild, Verified 10/05/25 14:32) RASH Opioids - Morphine Analogues (OPIOIDS-MORPHINE & RELATED) Adverse Reaction (Severe, Verified 10/05/25 14:32) DYSPHORIA AND PANIC ATTACKS Medication List - Last Reconciled 10/05/25 by Alanna Pham MD ascorbic acid-collagen 30-833.3 mg tabs PO cetirizine (Zyrtec) 10 mg PO DAILY PRN famotidine 40 mg PO BEDTIME insulin syringe-needle U-100 (BD Insulin Syringe Ultra-Fine) As directed Lactobacillus acidoph-L.bulgar 1 million cell 2 tabs PO BID levothyroxine 100 mcg PO DAILY 30 days magnesium 250 mg PO DAILY rabeprazole 20 mg PO DAILY valacyclovir 500 mg PO BID PRN Tobacco use date assessed: 04/03/25 Dental Screening Dental Screen Date: 04/03/25 HPI HPI Comments History of Present Illness Details This is a 45-year-old female with hypothyroidism, GERD and allergic rhinitis that comes today complaining of some episodes of dizziness after having a sinus infection more prominent in the right ear. Last TSH was normal and this will be repeated. GERD stable with medications and follow by Gastroenterology. On antihistamines for allergic rhinitis doing well. Vestibular therapy was advised if dizziness persists. [facility] Medical History (Updated 10/05/25 @ 15:03 by Alanna Pham MD) Acute gastroenteritis Gastritis and duodenitis Maxillary sinusitis Swelling of left foot Nasal congestion Nausea Low back pain Endometrial thickening on ultrasound Urethral diverticulum Herpes genitalis Anxiety and depression Migraine GERD (gastroesophageal reflux disease) Non-toxic multinodular goiter Shreya's disease Hypothyroidism Lump on face Surgical History H/O colonoscopy Hx of hiatal hernia History of esophagogastroduodenoscopy (EGD) Hx of bilateral salpingectomy Hx of cholecystectomy Family History Father No problems noted. Mother Diabetes mellitus HTN (hypertension) Maternal Uncle Pancreatic cancer Alcohol abuse Maternal Grandfather Diabetes mellitus Maternal Aunt Breast cancer Brother Substance abuse Paternal Grandmother Lung cancer Uterine cancer Other Mental health disorder Social History Housing: House Alcohol intake: never Comment: drank 02/2024 Patient Tobacco Use Status: Former Tobacco user Tobacco use type: Cigarette Years Smoked: quit 2009 e-Cigarette/Vaping Use: Never Used Second Hand Smoke Exposure: Yes service: No Current occupational status: employed Cognitive needs: No Hearing needs: No Vision needs: No Questionnaire Thrive Questionnaire Date Thrive assessed: 02/19/25 I am a: Patient What is your living situation today?: I have a steady place to live Within the past 12 months, did the food you bought not last and you didn't have the money to get more?: Never true Within the past 12 months, did you worry whether your food would run out before you got money to buy more?: Never true Do you have trouble paying for medicines?: I choose not to answer this question Do you have trouble getting transportation to medical appointments?: No Do you have trouble paying your heating and electricity bill?: No Do you have trouble taking care of your child, family member or friend?: No Do you have trouble with day-to-day activities such as bathing, preparing meals, shopping, managing finances, etc.?: No Are you currently unemployed and looking for a job?: No Are you interested in more education?: Yes Please select the resources that you would like help with: None Currently or been in a relationship where the following occur: No concerns reported THRIVE Score: 0 MELISSA-7 AMB Questionnaire MELISSA-7 Date MELISSA - 7 assessed: 04/03/25 Source: Developed by Drs. John Rojas, Miriam B.W. Aayush Wu and colleagues, with an educational adelia from [employer]. Review of Systems Const All systems reviewed & are unremarkable except as noted in HPI and below Card Denies chest pain at rest, Denies chest pain with activity, Denies edema, Denies irregular heart rhythm, Denies claudication, Denies dyspnea, Denies dyspnea on exertion, Denies orthopnea, Denies paroxysmal nocturnal dyspnea and Denies slow heart rate Resp Denies cough, Denies dyspnea and Denies dyspnea on exertion GI Denies abdominal pain, Denies change in bowel habits, Denies excessive flatus, Denies nausea and Denies vomiting Physical exam (Primary Care) Vital Signs: Last Vital Signs Temp 97.8 F 10/05/25 14:22 Pulse 83 10/05/25 14:22 Resp 16 10/05/25 14:22 BP 100/70 10/05/25 14:22 Pulse Ox 98 10/05/25 14:22 Oxygen Delivery Method Room Air 10/05/25 14:22 BMI result Body Mass Index 28.7 Tobacco/Smoking Status: Tobacco use Status Tobacco use date assessed 04/03/25 10/05/25 14:22 Patient Tobacco Use Status Former Tobacco user 10/05/25 14:22 Tobacco use type Cigarette 10/05/25 14:22 e-Cigarette/Vaping Use Never Used 10/05/25 14:22 Thrive Assessment: Date of Thrive Assessment Date Thrive assessed 02/19/25 10/05/25 14:22 Currently or been in a relationship where the following occur: No concerns reported Resp Effort & Inspection: normal respiratory effort Auscultation: clear to auscultation bilaterally Cardio Jugular venous distension: no JVD Rate: regular rate Rhythm: regular rhythm Heart sounds: S1 normal heart sound present and S2 normal heart sound present Extrem General: Yes full ROM Coding Level of Care Code Est Pt Level 4 (66044) Diagnoses Acquired hypothyroidism E03.9 Hypothyroidism type: acquired Seasonal allergic rhinitis, unspecified trigger J30.2 Allergic rhinitis trigger: unspecified Allergic rhinitis seasonality: seasonal Gastroesophageal reflux disease without esophagitis K21.9 Esophagitis presence: without esophagitis Dizziness R42 Time Spent (min) 20 Assessment & Plan Assessment & Plan (1) Hypothyroidism: Comment: September 2022 Code(s): E03.9 - Hypothyroidism, unspecified Category: Medical Qualifiers: Hypothyroidism type: acquired Qualified Code(s): E03.9 - Hypothyroidism, unspecified (2) Allergic rhinitis: Code(s): J30.9 - Allergic rhinitis, unspecified Category: Medical Qualifiers: Allergic rhinitis trigger: unspecified Allergic rhinitis seasonality: seasonal Qualified Code(s): J30.2 - Other seasonal allergic rhinitis (3) GERD (gastroesophageal reflux disease): Code(s): K21.9 - Gastro-esophageal reflux disease without esophagitis Category: Medical Qualifiers: Esophagitis presence: without esophagitis Qualified Code(s): K21.9 - Gastro-esophageal reflux disease without esophagitis (4) Dizziness: Code(s): R42 - Dizziness and giddiness Category: Medical Plan Fasting labs were ordered. Continue same medications. Orders: Orders Thyroid Stimulating Hormone Today E03.9 - Hypothyroidism, unspecified Lipid Panel Today E78.5 - Hyperlipidemia, unspecified Vitamin D 25-OH Total Today E55.9 - Vitamin D deficiency, unspecified Vitamin B12 and Folate Today E53.8 - Deficiency of other specified B group vitamins Comprehensive [place]. Panel Fast Today K21.9 - Gastro-esophageal reflux disease without esophagitis IRON PROFILE Today D64.9 - Anemia, unspecified
[2025-10-05 14:22] VITALS: BP 100/70; PULSE 83; RESP 16; TEMP 36.6; O2SAT 98; BMI 28.7
--- OUTSIDE RECORDS SUMMARY | 2025-10-05 17:25 | XMS_ITS | Clinical Summary ---
Author Organization [facility] Address [address] [place] [address] Phone Care Team Providers Care Mechanical Oxidizer Name Role Phone Susan You MD Primary Care Provider [phone] Allergies Active Allergy Reactions Criticality Noted Date [...] History Surgery Date Site/Laterality Comments CHOLECYSTECTOMY PROCEDURE: [place] LAPAROSCOPY SURG CHOLECYSTECTOMY SALPINGOOPHORECTOMY 2012 PROCEDURE: [place] LAPAROSCOPY W/RMVL ADNEXAL STRUCTURES Medical History Medical [...] care for your loved ones. For example, director of early childhood or elderly care for an older adult? [...] oz) M Vag-S pont None Living Delivery Location:[facility] Last Filed Vital Signs Vital Sign Reading [...] 3-dose series) 1997 COVID-19 Vaccine ( - 2024-2 6 season) 2025 Influenza Vaccine (#1) 2025 Social [...] LAB CHEMISTRY METHOD 09/01/2024 6:21 PM EST [facility] Blood Venous blood specimen / Unknown Venipuncture / Unknown 09/01/2024 1:58 PM EST 09/01/2024 4:20 PM EST Ashley Ramesh [facility] BLOOD ORDERABLES Final Resu lt [facility] [address] [place] [address], * HIV 1,2 antibody, p24 antigen with reflex to differentiation (09/01/2024 1:58 PM EST) HIV Combo AB/AG Negative Negative LAB CHEMISTRY METHOD 09/01/2024 6:22 PM EST [facility] Blood Venous blood specimen / Unknown Venipuncture / Unknown 09/01/2024 1:58 PM EST 09/01/2024 4:20 PM EST Narrative [facility] - 09/01/2024 6:22 PM EST [...] BLOOD ORDERABLES Final Resu lt [facility] [place] ([facility]) [facility] [address] [place] [address], * External Mammogram Report (06/24/2024 2:42 PM EDT) Anatomical Region Laterality Modality Mammography Historical Provider IMG BI PROCEDURES Final R esult * Cervical Cancer Screening: HPV (01/22/2023) Cervical Cancer Screening: HPV negative,a bstracted Historical Provider HEALTH MAINTENANCE Final Result from Last 3 Months or Most Recently Relevant to Health Maintenance Insurance [facility] PUBLIC PLANS Care Teams Mechanical Oxidizer Relationship Specialty Start Date End Date Susan You MD [address] [place] [address] Dr [address] [facility] [place] [address] PCP - General Internal Medicine 09/24/20
--- OUTSIDE RECORDS SUMMARY | 2025-10-05 17:25 | XMS_ITS | Clinical Summary ---
Author Organization [facility] Address [address] [address] Phone Care Team Providers Care Paper Twister Name Role Phone Susan You MD Primary Care Provider [phone] Encounters Date Type Department Care Team Description 09/03/2025 Orders Only [facility] [address] [place] [address] Mary Shaw RN Encounter for occupational health examination (Primary Dx); Need for hepatitis B screening test from Last 3 Months Social History Tobacco Use Types Packs/Day Years Used Date Smoking Tobacco: Never Assessed Education Answer Date Recorded Are you interested in more education? Not on sienna e 09/03/2025 Are you concerned about learning? Not on file 09/03/2025 No 09/03/2025 No 09/03/2025 Digital Access Answer Date Recorded No 09/03/2025 No 09/03/2025 Reliable internet access at home? Not on file 09/03/2025 Device with a working camera? Not on file Comments Unknown Sex and Gender Information Value Date Recorded Sex Assigned at Not on file Legal Sex Female 2:46 PM EST Gender Identity Not on file Sexual Orientation Not on file Plan of Treatment Health Maintenance Due Date Last Done Comments Adult Td,Tdap Booster 1978 LIPID PANEL 1978 DEPRESSION SCREENING 1990 SMOKING Hx and SMOKELESS TOB ACCO SCREENING 1991 HEPATITIS C SCREENING 1996 HIV ONE-TIME SCREENING (18-6 5 YEARS) 1996 PAP SMEAR 1999 MAMMOGRAM 2018 COLOGUARD 2023 COLONOSCOPY 2023 COLORECTAL CANCER SCREENING 2023 FIT TEST 2023 FOBT 2023 SIGMOIDOSCOPY 2023 VIRTUAL COLONOSCOPY 2023 INFLUENZA VACCINE (#1) 2025 COVID-19 VACCINE (2024-2 6 season) 2025 HEPATITIS A VACCINES Aged Out No long er eligible based on patient's age to complete this topic HIB VACCINES Aged Out No longer eligi ble based on patient's age to complete this topic MENINGOCOCCAL VACCINES (ACWY) Aged Out No longer eligible based on patient's age to complete this topic MENINGOCOCCAL VACCINES (B) Aged Out N o longer eligible based on patient's age to complete this topic PNEUMOCOCCAL VACCINES (0-49 years) Aged Out No longer eligible based on patient's age to complete this topic Medical Devices Not on file Procedures Procedure Name Priority Date/Time Associated Diagnosis Comments HEPATITIS B SURFACE ANTIBODY Routine 09/08/2025 11:51 AM EST Encounter for occupational health examination T-SPOT .TB Routine 09/08/2025 11:51 AM EST Encounter for occupational health examination RUBELLA ANTIBODY, IGG Routine 09/08/2025 11:51 AM EST Encounter for occupational health examination MEASLES ANTIBODY, IGG Routine 09/08/2025 11:51 AM EST Encounter for occupational health examination MUMPS ANTIBODY, IGG Routine 09/08/2025 11:51 AM EST Encounter for occupational health examination from Last 3 Months Results * Mumps Antibody, IgG (09/08/2025 11:51 AM EST) Mumps Ab IgG Negative Negative 09/11/2025 9:57 AM EST [facility] Blood (Blood) Venipuncture / Unknown 09/08/2025 11:51 AM EST 09/08/2025 11:53 AM EST us Sidney Wadsworth MD, MPH LAB BLOOD BKR ORDERABLES Final Result [facility] [address] [place] [address] * Rubella Antibody, IgG (09/08/2025 11:51 AM EST) Rubella Antibody, IgG Negative 2025 12:22 PM EST [facility] Comment:No antibody detected Blood (Blood) Venipuncture / Unknown 09/08/2025 11:51 AM EST 09/08/2025 11:53 AM EST Sidney Wadsworth MD, MPH LAB BLOOD BKR ORDERABLES Final Result Performing Organization Address [facility] Co de Phone Number [address] [address] * Measles Antibody, IgG (09/08/2025 11:51 AM EST) Pathologist [facility] Measles Ab IgG Negative Negative 2025 2:00 PM EST [facility] Blood (Blood) Venipuncture / Unknown 09/08/2025 11:51 AM EST 09/08/2025 11:53 AM EST Sidney Wadsworth MD, MPH LAB BLOOD BKR ORDERABLES Final Result Performing Organization Address [facility] de Phone Number [address] [address] * T-SPOT??.TB (09/08/2025 11:51 AM EST) Pathologist [facility] T-Spot.TB Negative Negative 09/11/2025 8:11 AM EST [facility] (SABINO) Comment: A negative test result does not exclude the possibility of exposure to or infection with Mycobacterium tuberculosis (M. tuberculosis). Patients with recent exposure to TB infected individuals exhibiting a negative T-SPOT.TB result should be considered for retesting within 6 weeks or if other relevant clinical symptoms indicate. Results from T-SPOT.TB testing must be used in conjunction with each individual's epidemiological history, current medical status, and results of other diagnostic evaluations. The T-SPOT.TB test is qualitative and results are reported as positive, borderline, or negative, given that the test controls perform as expected. In line with the Centers for Disease Control and Prevention's 2010 recommendation to report quantitative measurements alongside the qualitative result, the laboratory provides spot counts for informational purposes only. The T-SPOT.TB test should not be interpreted as a quantitative test. Panel A Spot Count Corrected For Neg Control 0 09/11/2025 8:11 AM EST [facility]AKI[facility] (BERICK) Panel B Spot Count Corrected For Neg Control 0 09/11/2025 8:11 AM EST [facility] (BEAKER) Negative Control Passed 09/11/20 8:11 AM EST [facility] (BEAKER) Positive Control Passed 09/11/20 8:11 AM EST [facility] (BERICK) Comment: For additional information, please refer to http://education.[employer]/faq/MDK564 (This link is being provided for informational/ educational purposes only.) Blood (Blood) Venipuncture / Unknown 09/08/2025 11:51 AM EST 09/08/2025 11:53 AM EST Narrative [facility] BOJORQUE[facility] (SABINO) - 09/11/2025 8:11 AM EST Performing Organization Information: Site ID: AMD Name: [facility] Address: [address] [place] [address] Director: Mike Clark MD PhD us Sidney Wadsworth MD, MPH LAB BLOOD BKR ORDERABLES Final Result [facility] CABRERA) [address] [place] [phone], [facility] * Hepatitis B Surface Antibody (09/08/2025 11:51 AM EST) Hepatitis B Surface Antibody Reactive Reactive 09/08/2025 1:32 PM [facility] Comment:Individual is consid ered immune to HBV infection. Hepatitis B Surface Antibody, Quant >1,000.00 mIU/mL 09/08/2025 1:32 PM EST [facility] Blood (Blood) Venipuncture / Unknown 09/08/2025 11:51 AM EST 09/08/2025 11:53 AM EST [facility] - 09/08/2025 1:32 PM EST Test performed by Mitch electrochemiluminescent immunoassay (ECLIA). us Sidney Wadsworth MD, MPH LAB BLOOD BKR ORDERABLES Final Result [facility] [address] [place] [address] from Last 3 Months Insurance Care Teams Paper Twister Relationship Specialty Start Date End Date Susan You MD [address] [facility] [address] [place] [address] PCP - General 09/08/25 Additional Source Comments The information contained in this document represents components of the legal health record. It is not the complete legal health record.[facility]
--- OUTSIDE RECORDS SUMMARY | 2025-10-05 17:26 | XMS_ITS | Data Portability ---
Author Organization [place] - [facility], Allergy Address [address] [place] [id number] Care Team Providers Care Pharmacy Billing Adjudicator Name Role Phone BASIM KIMBERLYJONATHAN Primary Care [...] Gastroesop hageal reflux disease without esophagiti s [id number] Active 2018 Gastro-es ophageal reflux disease without esophagit is; Note: Date Diagnosed : 9 2:58 PM (K21.9) Not Available [facility] 4 02:14:43 Nasal congestion 30554178 Active 2018 Nasal congestio n; Note: Date Diagnosed : 9 2:58 PM (R09.81) Not Available [facility] 4 02:12:59 Dysphonia 57246033 Active 2018 Hoarsenes s; Note: Date Diagnosed : 9 2:57 PM (R49.0) Not Available [facility] 4 02:13:47 Headache 26926022 Active 2019 Facial pain NOS; Note: Date Diagnosed : 02/17/2020 4:58 PM (R51) Not Available [facility] 4 02:13:30 Allergic rhinitis 63196367 Active 2019 Other allergic rhinitis; Note: Date Diagnosed : 02/17/2020 4:58 PM (J30.89) Not Available [facility] 4 02:13:27 Acute pharyngiti s [id number] Active 2021 Sore throat (acute) NOS; Note: Date Diagnosed : 10/26/2021 3:51 PM (J02.9) Not Available [facility] 4 02:13:09 Bleeding from nose 482987945 Active 2024 Sanjuanita alexis [place] - [facility] 5 17:59:27 Problem Notes None recorded. Medical [...] 8.6 mg tablet active Medicati on ID: [id number] B rand Name: senna Se nd Method: E-Prescr ibed Sub s Allowed: subs OK Medic ationGen ericName : senna Not Available Not Available Not Available metronida zole 0.75 % (37.5 mg/5 gram) vaginal gel active Medicati on ID: [id number] B rand Name: metronid azole Se nd [...] mcg tablet 10/26 completed Medicati on ID: [id number] D uration Value: 30 Brand Name: levothyr oxine Se nd Method: E-Prescr ibed Sub s Allowed: subs OK Speci al Instruct ion: TK 1 T PO QD Medic ationGen ericName : levothyr oxine Not Available Not Available Not Available azelastin e 137 mcg (0.1 %) nasal spray active Medicati on ID: [id number] B rand Name: azelasti ne Send Method: [...] capsule, delayed release active Medicati on ID: [id number] B rand Name: Dexilant Send Method: E-Prescr ibed Sub s Allowed: subs OK Medic ationGen ericName : Dexilant Not Available Not Available Not Available Dexilant 30 mg capsule, delayed release 10/26 completed Medicati on ID: [id number] D uration Value: 30 Brand Name: Dexilant Send Method: E-Prescr ibed Sub s Allowed: subs OK Medic ationGen ericName : Dexilant Not Available Not Available Not Available Vitals Date Recorded Body height Body mass index (BMI) Body weight Provider Name and Address Organization Details Last Updated DateTime 12/12/2024 162.56 cm 27.5 kg/m2 86053.78 g Kim Sarah [place] - [facility] 12/12/2024 11:19:16 Social History None recorded. Functional Status None recorded. Mental Status None recorded. Family History Nothing Reported. Medical History No medical history recorded. Gynecological HistoryNo gynecological history recorded. Obstetrics History GPAL:G 0 P 0 0 0 0 Past Encounters Encounter ID Performer Location Encounter Start Date Encounter Closed Date Diagnosis/Indication Diagnosis SNOMED-CT Code Diagnosis ICD10 Code Diagnosis IMO Codes Diagnosis Note [id number] SANJUANITA BLANC PA-C [facility] [address] [phone] 12/12/2024 11:04:13 12/12/2024 11:40:05 Bleeding from nose [id number] R04.0 Health Concerns Section Related Observation LastModified by Organization Detai ls LastModified Time None Recorded Concern Status LastModified by Organization Details LastModified Time None Recorded Advance Directives Directive None Recorded Payers Insurance Date Sequence Insurance Name Policy Number Policy Haque Covered Member ID Haque Member ID Guarantor Name 12/08/[address] [facility] PLAN [id number] Candice Smith [id number] 1 Candice Smith 12/15/[address] [facility] PUBLIC PLANS [employer] - TOGETHER (MEDICAID HMO) [id number] Candice Smith [id number] Candice Smith Notes Date Note Type [...] dried out her nose. JOSE LOPES MD [address] [place] [address], [phone], [facility] - [facility] 12/15/2024 10:21:10 OBGyn Episode No OBEpisode recorded.
== END 2025-10-05 14:50 | disposition home or self-care (01) ==
LOC: HO.HMCH 13:54
PROVIDERS: PCP Internal Medicine; Visit Provider Internal Medicine
DX: E03.9 Hypothyroidism, unspecified (principal); J30.2 Other seasonal allergic rhinitis; K21.9 Gastro-esophageal reflux disease without esophagitis; R42 Dizziness and giddiness

== ENCOUNTER → 2025-10-05 13:54 | Outpatient (BNVA) | payer OTHER, SELFPAY | PROVIDERS: PCP Internal Medicine; Visit Provider Internal Medicine | DX: K21.9 Gastro-esophageal reflux disease without esophagitis (principal); J30.2 Other seasonal allergic rhinitis; E03.9 Hypothyroidism, unspecified; R42 Dizziness and giddiness | CPT/HCPCS: 99212 ==